=== PATIENT | male | born 1940 | race Caucasian/White ===

== ENCOUNTER → 2023-10-22 11:42 | Outpatient (REF) | payer MEDICARE, OTHER, SELFPAY ==
[2023-10-22 12:36] LABS: Hematocrit 42.6 % (39.0-52.0); Mean Corp Hgb Conc. 32.9 g/dL (33.0-37.0); Mean Corpuscular Hgb 28.6 pg (27.0-31.0); Mean Corpuscular Volume 87.1 fL (80.0-94.0); Mean Platelet Volume 10.6 fL (7.4-10.4); Platelet Count 186 10^3/uL (130-400); Red Blood Cell Count 4.89 10^6/uL (4.70-6.10); Red Cell Dist. Width 15.1 % (11.5-14.5); White Blood Cell Count 42.1 10^3/uL (4.8-10.8)
[2023-10-22 13:31] LABS: LDH 238 U/L (120-246)
[2023-10-22 14:08] LABS: Absolute Neutrophils -Man Diff 0.8 10^3/uL (1.4-6.5); Band Neutrophils 0 % (0-3); Lymphocytes 98 % (20-51); Segmented Neutrophils 2 % (42-75)
[2023-10-22 14:09] LABS: Normal RBC Morphology Yes; Platelets Checked Yes
[2023-10-22 15:44] LABS: Total Cells Counted 100
== END ==
LOC: REG 11:42
PROVIDERS: ATTENDING PHYSICIAN Internal Medicine Hematology & Oncology; FAMILY PHYSICIAN Family Medicine
DX: D72.820 Lymphocytosis (symptomatic) (principal); C91.11 Chronic lymphocytic leukemia of B-cell type in remission
CPT/HCPCS: 36415; 83615; 85025

== ENCOUNTER → 2023-11-06 12:57 | Outpatient (REF) | payer MEDICARE, OTHER, SELFPAY ==
[2023-11-06 13:42] LABS: % Basophils 0.4 % (0-2); % Eosinophils 0.5 % (0-6); % Immature Granulocytes 0.2 % (0-0.5); % Lymphocytes 81.9 % (20.5-51.1); % Monocytes 3.7 % (1.7-9.3); % Neutrophils 13.3 % (42.2-75.2); Absolute Basophils 0.2 10^3/uL (0-0.2); Absolute Eosinophils 0.2 10^3/uL (0-0.7); Absolute Immature Granulocytes 0.1 10^3/uL (0-0.05); Absolute Lymphocytes 34.3 10^3/uL (1.2-3.4); Absolute Monocytes 1.6 10^3/uL (0.1-0.6); Absolute Neutrophils 5.6 10^3/uL (1.4-6.5); Hematocrit 43.8 % (39.0-52.0); Hemoglobin 14.2 g/dL (13.0-18.0); Mean Corp Hgb Conc. 32.4 g/dL (33.0-37.0); Mean Corpuscular Hgb 28.6 pg (27.0-31.0); Mean Corpuscular Volume 88.3 fL (80.0-94.0); Mean Platelet Volume 10.6 fL (7.4-10.4); Nucleated Red Blood Cells % 0 % (-); Platelet Count 164 10^3/uL (130-400); Red Blood Cell Count 4.96 10^6/uL (4.70-6.10); White Blood Cell Count 41.9 10^3/uL (4.8-10.8)
[2023-11-06 14:43] LABS: ALT (SGPT) 19 U/L (0-50); AST (SGOT) 35 U/L (17-59); Albumin 4.4 g/dl (3.5-5.0); Alkaline Phosphatase 54 U/L (38-126); Blood Urea Nitrogen 20 mg/dl (9-20); Calcium 9.4 mg/dl (8.4-10.2); Carbon Dioxide 28 mmol/L (22-30); Chloride 103 mmol/L (98-107); Glucose 90 mg/dl (70-99); HDL Cholesterol 46 mg/dl; LDL Cholesterol, Calculated 60 mg/dl; Potassium 4.6 mmol/L (3.5-5.1); Sodium 136 mmol/L (135-145); Total Bilirubin 0.9 mg/dl (0.2-1.3); Total Cholesterol 127 mg/dl (50-199); Total Protein 6.6 g/dl (6.3-8.2); Triglyceride 108 mg/dl (10-149); Very Low Density Lipoprotein 21 mg/dl (0-30); eGFR > 60.00
== END ==
LOC: REG 12:57
PROVIDERS: ATTENDING PHYSICIAN Internal Medicine Hematology & Oncology; FAMILY PHYSICIAN Family Medicine
DX: D72.820 Lymphocytosis (symptomatic) (principal); C91.11 Chronic lymphocytic leukemia of B-cell type in remission; I42.2 Other hypertrophic cardiomyopathy; I70.0 Atherosclerosis of aorta; I25.10 Atherosclerotic heart disease of native coronary artery without angina pectoris; E78.2 Mixed hyperlipidemia; I10 Essential (primary) hypertension; I48.0 Paroxysmal atrial fibrillation; Z87.891 Personal history of nicotine dependence; Z00.00 Encounter for general adult medical examination without abnormal findings
CPT/HCPCS: 36415; 80053; 80061; 85025

== ENCOUNTER → 2024-02-27 15:48 | Outpatient (REF) | payer MEDICARE, OTHER, SELFPAY ==
[2024-02-27 17:35] LABS: LDH 214 U/L (120-246)
[2024-02-27 17:46] LABS: % Basophils 0.4 % (0-2); % Eosinophils 0.5 % (0-6); % Immature Granulocytes 0.2 % (0-0.5); % Lymphocytes 81.6 % (20.5-51.1); % Monocytes 3.6 % (1.7-9.3); % Neutrophils 13.7 % (42.2-75.2); Absolute Basophils 0.2 10^3/uL (0-0.2); Absolute Eosinophils 0.3 10^3/uL (0-0.7); Absolute Immature Granulocytes 0.1 10^3/uL (0-0.05); Absolute Lymphocytes 37.3 10^3/uL (1.2-3.4); Absolute Monocytes 1.7 10^3/uL (0.1-0.6); Absolute Neutrophils 6.2 10^3/uL (1.4-6.5); Hematocrit 41.5 % (39.0-52.0); Hemoglobin 13.6 g/dL (13.0-18.0); Mean Corp Hgb Conc. 32.8 g/dL (33.0-37.0); Mean Corpuscular Hgb 28.6 pg (27.0-31.0); Mean Corpuscular Volume 87.4 fL (80.0-94.0); Mean Platelet Volume 10.6 fL (7.4-10.4); Nucleated Red Blood Cells % 0 % (-); Platelet Count 180 10^3/uL (130-400); Red Blood Cell Count 4.75 10^6/uL (4.70-6.10); Red Cell Dist. Width 15.5 % (11.5-14.5); White Blood Cell Count 45.7 10^3/uL (4.8-10.8)
== END ==
LOC: REG 15:48
PROVIDERS: ATTENDING PHYSICIAN Internal Medicine Hematology & Oncology; FAMILY PHYSICIAN Family Medicine
DX: D72.820 Lymphocytosis (symptomatic) (principal); C91.11 Chronic lymphocytic leukemia of B-cell type in remission
CPT/HCPCS: 36415; 83615; 85025

== ENCOUNTER → 2024-07-08 13:05 | Outpatient (REF) | payer MEDICARE, OTHER, SELFPAY ==
[2024-07-08 14:40] LABS: LDH 241 U/L (120-246)
[2024-07-08 14:44] LABS: Hematocrit 45.5 % (39.0-52.0); Hemoglobin 14.4 g/dL (13.0-18.0); Mean Corp Hgb Conc. 31.6 g/dL (33.0-37.0); Mean Corpuscular Hgb 28.5 pg (27.0-31.0); Mean Corpuscular Volume 89.9 fL (80.0-94.0); Mean Platelet Volume 9.9 fL (7.4-10.4); Platelet Count 156 10^3/uL (130-400); Red Blood Cell Count 5.06 10^6/uL (4.70-6.10); Red Cell Dist. Width 15.5 % (11.5-14.5)
[2024-07-08 15:32] LABS: % Basophils 0.4 % (0-2); % Eosinophils 0.5 % (0-6); % Immature Granulocytes 0.2 % (0-0.5); % Lymphocytes 84.4 % (20.5-51.1); % Neutrophils 9.5 % (42.2-75.2); Absolute Basophils 0.2 10^3/uL (0-0.2); Absolute Eosinophils 0.3 10^3/uL (0-0.7); Absolute Immature Granulocytes 0.1 10^3/uL (0-0.05); Absolute Lymphocytes 43.9 10^3/uL (1.2-3.4); Absolute Monocytes 2.6 10^3/uL (0.1-0.6); Nucleated Red Blood Cells % 0 % (-)
== END ==
LOC: REG 13:05
PROVIDERS: ATTENDING PHYSICIAN Internal Medicine Hematology & Oncology; FAMILY PHYSICIAN Family Medicine
DX: D72.820 Lymphocytosis (symptomatic) (principal); C91.11 Chronic lymphocytic leukemia of B-cell type in remission
CPT/HCPCS: 36415; 83615; 85025

== ENCOUNTER → 2024-08-15 14:56 | Outpatient (REF) | payer MEDICARE, OTHER, SELFPAY | LOC: RCS 14:56 | PROVIDERS: ATTENDING PHYSICIAN Internal Medicine Cardiovascular Disease; FAMILY PHYSICIAN Family Medicine | DX: I42.2 Other hypertrophic cardiomyopathy (principal); I48.0 Paroxysmal atrial fibrillation; I35.0 Nonrheumatic aortic (valve) stenosis | CPT/HCPCS: 93306 ==

== ENCOUNTER 2024-09-05 20:14 | Inpatient (IN) | payer MEDICARE, OTHER, SELFPAY ==
[2024-09-05] VITALS (57 sets, daily range): BP systolic 57–144; BP diastolic 36–115
--- NOTE | 2024-09-05 16:59 | ED.GENMED ---
ED Provider Triage
<Dasha Hirsch PA-C - Last Filed: 09/05/24 17:01>
-
Patient seen by provider in Triage?: Seen in Triage
Attestation: A medical screening examination has been initiated by a qualified medical provider. Based on the assessment performed at this time, it has been determined that an emergent medical condition may exist and the patient has been informed
that further medical evaluation and possible additional diagnostic testing may be needed.
HPI: 84yoM here with increasing SOB x 1 week. Had a fall today but denies injuries. Also has been having 'the sweats' without fevers. No CP/leg swelling/cough. Hx of CLL.
GENERAL: Alert , in no apparent distress
EYE: No visual abnormalities.
NECK: Trachea midline
ENT: No visible abnormalities.
LUNGS: No acute respiratory distress
NEUROLOGICAL: Alert and oriented
SKIN: Skin intact. No visible changes.
MUSCULOSKELETAL: Moving extremities normally
PSYCH: Normal and appropriate interaction.
This is a medical evaluation conducted in person to initiate diagnostic evaluation and provide initial therapeutics. Please see further documentation by the treating clinician.
Cardiac labs, viral testing, EKG, and CXR ordered.
History of Present Illness
<Dasha Hirsch PA-C - Last Filed: 09/05/24 17:01>
General
Chief Complaint: Breathing Problem
Time Seen by Provider: 09/05/24 17:21
<Damion Abrams DO - Last Filed: 09/05/24 22:43>
General
Source: patient and records
Exam Limitations: clinical condition
Nursing documentation reviewed up to this point in time: agreed with
History of Present Illness
History of Present Illness:
84-year-old male PAF aortic valve disease hypertrophic cardiomyopathy CLL not on treatment presents with fatigue shortness of breath, never required transfusion, onset 7 to 10 days ago, no fevers has a scratch or wound on his right hand after a fall
states he feels short of breath, worse with exertion initial blood pressure is elevated and he was tachycardic in a wide-complex rhythm look like AF, subsequently became unstable with low blood pressures, with confusion attempt at synchronized
cardioversion was unsuccessful
Past History
<Dasha Hirsch PA-C - Last Filed: 09/05/24 17:01>
Past History
ED Past Medical History: CAD, HTN and Hypercholesterolemia
ED Past Surgical History: None
Social History
Tobacco: Non-smoker
Personal:
Living: with family
Family History
Family History: Negative Diabetes, Hypertension, Early CAD, Asthma or Cancer
Phy Exam
<Damion Abrams DO - Last Filed: 09/05/24 22:43>
Physical Exam
Physical Exam:
Physical Exam
General: Ill-appearing male
Neck: Positive JVD
Heart: Rapid rate
Lungs: Crackles
Abdomen: Not tender
Neuro: alert and oriented. no focal neurological deficits
Skin: no rash
Psychiatric: well kept. interactive and cooperative
Extremities: Edema is
Scores
<Damion Abrams DO - Last Filed: 09/05/24 22:43>
Heart Failure Risk
Heart Failure Risk Score: Yes
History of Stroke or TIA: No
History of intubation for respiratory distress: No
Heart rate on ED arrival >/= 110: Yes
SaO2 <90% on arrival on room air: No
HR >/=110 during 3min walk test (or too ill to perform test): Yes
ECG has acute ischemic changes: Yes
Urea >/=12mmol/L (BUN 33.6mg/dL): Yes
Serum CO2>/=35mmol/L: No
Troponin I or T elevated to [place] Level (0.4mg/dL): Yes
NT-proBNP >/=5,000ng/L (5,000pg/ml): Yes
HF Risk Score: 8
Admission Status: VERY HIGH RISK 81.2% Consider admission to hospital
Course
Simonlt;Dasha Hirsch PA-C - Last Filed: 09/05/24 17:01>
Orders/Labs/Results
Orders:
Orders
09/05/24 17:00
Electrocardiogram (*1) Urgent
Reason for Study: Shortness of Breath
EKG- Treatment ONCE
09/05/24 17:21
CXR Port [CR Chest Portable - 1 View] Stat
Comment:
Reason For Exam: sob
Reason Study Needs to be Portable: Unable to Transport
09/05/24 17:25
Type And Crossmatch [Type+Screen] Urgent
COVID-19 Antigen Urgent
Source: Nasal Swab
Complete Blood Count/With Diff Urgent
Comprehensive Metabolic Panel Urgent
Creatine Phosphokinase Urgent
Comment: ADD ON
NT-proBNP Urgent
Troponin I Urgent
Influenza A+B Rapid Molecular Urgent
TIAGO Source: Nasal Swab
Specimen Description:
09/05/24 17:35
Propofol [Diprivan] 20 ml .ROUTE .STK-MED
09/05/24 17:52
ASA Classification Routine
NORepinephrine 4 MG/250 ML [Levophed] 4 mg in 250 ml .ROUTE .STK-MED
Propofol [Diprivan] 50 mg IV NOW STA
09/05/24 17:54
ABO2 Urgent
BBK Wristband Number:
Associate notified that ABO2 has been ordered: [id number]
Date: 09/05/24
Time: 17:44
Urgent Care Physician Assistant ID: [id number]
09/05/24 18:00
NORepinephrine 4 MG/250 ML [Levophed] 4 mg in 250 ml IV PER PROTOCOL
Initial dose in mcg/min, then titrate:: 2
Titrate to keep:: SBP > 90 mmHg
Titrate by mcg/min:: 1-2 mcg/min
Frequency of titrations (minutes):: 5
Maximum dose in ICU in mcg/min:: 30
Maximum dose in IMU in mcg/min:: 8
Maximum dose in IVU in mcg/min:: 4
Begin to taper infusion when:: Remained at goal for 4hrs
Taper by mcg/min:: 1-2 mcg/min
Frequency of taper (minutes) if patient maintains goal:: 30
Taper to off?: Yes
If infusion off & no longer maintaining goal:: Contact Provider
09/05/24 18:08
0.9% Sodium Chloride 1000 ml [Nss] 1,000 ml IV BOLUS
09/05/24 18:26
ABG [Arterial Blood Gas] Urgent
%Oxygen/Room Air: 3
Blood Culture Q30M
TIAGO Source: Blood/Venous
Specimen Description:
Blood Culture Q30M
TIAGO Source: Blood/Venous
Specimen Description:
09/05/24 18:30
Roach Placement- Treatment ONCE
Reason for insertion: Outlet obstruction
Furosemide [Lasix] 60 mg IV NOW STA
Potassium Chloride [KCl] 40 meq PO NOW STA
09/05/24 18:31
Echo 2D MMode Color/Doppler Urgent
Reason for Study: sob
09/05/24 18:32
Add On- LAB Urgent
Tests Added?: CPK
09/05/24 18:35
Lactic Acid Urgent
09/05/24 18:39
Aspirin 325 mg PO NOW STA
09/05/24 18:40
CT Cervical Spine W/o Iv Contr Urgent
Comment:
Reason For Exam: fall
CT Head W/o Iv Contrast Urgent
Comment:
Reason For Exam: headach feall
09/05/24 18:42
Heparin 4,000 units IV NOW STA
09/05/24 18:[address] Non Medication Order As Directed
Physician Order: PTT 6 hours after initial start of Heparin infusion
Above order entered?: Yes
09/05/24 18:45
Heparin 54150 Units/250 ml 25,000 units in 250 ml IV PER PROTOCOL
Weight to be used for heparin protocol in kilograms (kg):: 92.8
Protocol:: Cardiac Tx/Acute Coronary
PTT Goal Range to be used:: PTT 73 to 111 seconds
Order type:: Initial
INITIAL Infusion Dose (UNITS/KG/hr) & then follow protocol:: 12 units/kg/hr
Infusion Dose in UNITS/hr & then follow protocol (UNITS/hr):: 1,000
INFUSION RATE in mL/hr & then follow protocol (mL/hr):: 10
PTT less than or equal to 64 seconds:: Increase rate by 200 units/hr (+ 2 mL/hr)
PTT 64.1 to 72.9 seconds:: Increase rate by 100 units/hr (+ 1 mL/hr)
PTT 73 to 111 seconds:: Target Range. No change in rate.
PTT 111.1 to 130.9 seconds:: Decrease rate by 100 units/hr (- 1 mL/hr)
PTT 131 to 199.9 seconds:: HOLD for 1 hr. Then decrease rate by 200 units/hr (- 2 mL/hr)
PTT greater than or equal to 200 seconds:: HOLD for 2 hrs & Notify Provider. Then decrease by 200 units/hr (-
2 mL/hr)
Lab follow-up:: Each change, PTT q6h until 2 consecutive are therapeutic. Then PTT
daily.
09/05/24 18:57
PTT Urgent
Comment: Obtain baseline before beginning heparin infusion if not already collected
Prothrombin Time Urgent
Comment: ADD ON
Troponin I Stat
09/05/24 18:58
Piperacillin/Tazo 2.25 Gram [Zosyn] 2.25 grams in 50 ml IV NOW
09/05/24 19:02
Add On- LAB Urgent
Tests Added?: CK MB
09/05/24 19:52
Admit/Transfer Patient As Directed
Co-Sign Provider:
Level of Care: Inpatient admission
Assign to:: ICU
Physician / Group: hospitalist
Diagnosis: cardiogenic shock
Reason for Hospitalization: [place] with cardiogenic shock
Expected length of stay greater than two midnights?: Yes
ELOS- Estimated Length of Stay in days: 2
I certify the patient meets the requirements for IP care: Yes
PRN Pain Medication Management As Directed
May give lesser potent ordered pain med per pt: Yes
preference::
Protocol:: Medication orders for pain may be administered in a
manner that supports deferring to patient preference
when the pt is:
- Requesting an ordered lesser potent pain medication.
Least to most potent pain medications are defined
as: acetaminophen < NSAID < tramadol < opioids
(morphine, oxycodone, hydromorphone).
- Requesting a lesser dose of the same medication IF
ORDERED.
- Requesting a less intrusive route of administration
if both routes are prescribed by the provider (PO <
IV).
09/05/24 19:54
Code Status As Directed
Resuscitation Status: Full Code
09/05/24 20:03
Add On- LAB Stat
Tests Added?: CK-MB (from 18:57 lab draw).
09/05/24 20:09
Add On- LAB Urgent
Tests Added?: INR
09/05/24 21:26
Acetaminophen [Tylenol] 650 mg PO Q6HPRN PRN
NORepinephrine 4 MG/250 ML [Levophed] 4 mg in 250 ml IV PER PROTOCOL
Currently infusing. Continue current dose and titrate:: Yes
Titrate to keep:: SBP > 90 mmHg
Titrate by mcg/min:: 1-2 mcg/min
Frequency of titrations (minutes):: 5
Maximum dose in ICU in mcg/min:: 30
Maximum dose in IMU in mcg/min:: 8
Maximum dose in IVU in mcg/min:: 4
Begin to taper infusion when:: Remained at goal for 4hrs
Taper by mcg/min:: 1-2 mcg/min
Frequency of taper (minutes) if patient maintains goal:: 30
Taper to off?: Yes
If infusion off & no longer maintaining goal:: Contact Provider
09/05/24 21:26
Echo 2D MMode Color/Doppler Routine
Reason for Study: heart failure
CARDIOLOGY CONSULT Routine
Consulting Provider: Gaby Still
Was physician already notified: Yes
HF DIETARY CONSULT Routine
HF EDUCATOR CONSULT Routine
Comment:
Tunnel Elastic Operator Chainstitch Consult Routine
Consulting Provider: Arnulfo Sarmiento
Was physician already notified: Yes
Reason for consult: cardiogenic shock
VTE Contraindication Routine
VTE Mechanical Device Contraindication: Medical Contraindication
Pharmocologic Contraindication: Medical Contraindication
MRI Brain [MR Brain Without Contrast] Routine
Comment:
Reason For Exam: eval frontal lobe density, meningioma vs cancer
Recent pill cam endoscopy?: No
Heparin Protocol- PTT Orders As Directed
PTT per Heparin protocol: -Obtain CBC and baseline PTT - if not already collected.
-Obtain PTT 6 hours from start of infusion. Then, every 6 hours until 2 consecutive
PTT's are therapeutic. Then, PTT Daily.
-With each rate change, obtain PTT every 6 hours until 2 consecutive PTT's are
therapeutic. Then, PTT Daily.
Activity As Directed
Activity Level: Bedrest
Intake/ Output As Directed
Frequency: Per unit guidelines
Notify MD As Directed
Notify physician if: PTT is greater than or equal to 200.
Patient Education As Directed
Type: CHF folder
Comment: give on admission. Document in Interdisciplinary Education record
Sleep Apnea Assessment by RN As Directed
Comment:
Physician Instructions:
Vital Signs As Directed
Frequency: Other
Additional Instructions:: Q12 or per unit guidelines if more frequent.
Weight As Directed
Frequency: Daily
Type of Scale: Standing Scale
Comment: Daily morning weight. If unable to stand, use balanced bed scale.
Weight As Directed
Frequency: Once
Type of Scale: Standing Scale
Comment: Upon Admission. If unable to stand, use balanced bed scale.
O2 Therapy [RESP] Routine
Nasal Cannula Liter Flow: 4 LPM
Titrate/Wean O2 to maintain O2 sat greater than (%): 95
Pulse Ox/cont/shift [RESP] Routine
Quantity: 1
Special Instructions: Daily pulse oximetry at rest. If greater than 92% at rest also obtain pulse oximetry
while ambulating as tolerated.
09/05/24 22:00
Doxycycline [Vibramycin] 100 mg PO Q12
09/05/24 22:13
Troponin I Q6H
Comment: at admission & every 6 hours x 2 (3 total), ECG to be done with each level
09/06/24 00:00
Cefepime HCl [Maxipime] 1,000 mg IV Q12H
09/06/24 05:55
Troponin I Q6H
Comment: at admission & every 6 hours x 2 (3 total), ECG to be done with each level
09/06/24 06:00
Basic Metabolic Panel IN AM
Cardiovascular Evaluation IN AM
Magnesium IN AM
Phosphorus IN AM
CR Chest - 2 Views IN AM
Comment:
Reason For Exam: heart failure
09/06/24 08:00
Aspirin Chewable [Low Strength Aspirin] 81 mg PO DAILY
Furosemide [Lasix] 40 mg IV BID AT 0800,1600
09/06/24 11:55
Troponin I Q6H
Comment: at admission & every 6 hours x 2 (3 total), ECG to be done with each level
09/06/24 18:00
Cetirizine HCl [Zyrtec] 5 mg PO QPM
Rosuvastatin Calcium [Crestor] 10 mg PO QPM
09/07/24 06:00
Basic Metabolic Panel IN AM
Complete Blood Count/No Diff Q2D
Comment: notify provider: Platelet count < 130,000 or decrease by 50% from baseline
09/08/24 06:00
Basic Metabolic Panel IN AM
09/09/24 06:00
Complete Blood Count/No Diff Q2D
Comment: notify provider: Platelet count < 130,000 or decrease by 50% from baseline
09/11/24 06:00
Complete Blood Count/No Diff Q2D
Comment: notify provider: Platelet count < 130,000 or decrease by 50% from baseline
09/13/24 06:00
Complete Blood Count/No Diff Q2D
Comment: notify provider: Platelet count < 130,000 or decrease by 50% from baseline
09/15/24 06:00
Complete Blood Count/No Diff Q2D
Comment: notify provider: Platelet count < 130,000 or decrease by 50% from baseline
09/17/24 06:00
Complete Blood Count/No Diff Q2D
Comment: notify provider: Platelet count < 130,000 or decrease by 50% from baseline
09/19/24 06:00
Complete Blood Count/No Diff Q2D
Comment: notify provider: Platelet count < 130,000 or decrease by 50% from baseline
09/21/24 06:00
Complete Blood Count/No Diff Q2D
Comment: notify provider: Platelet count < 130,000 or decrease by 50% from baseline
Abnormal Lab Results
09/05/24 09/05/24 09/05/24
17:25 17:25 18:26
WBC 69.7 H* 10^3/uL
(4.8-10.8)
MCHC 32.9 L g/dL
(33.0-37.0)
RDW 15.3 H %
(11.5-14.5)
MPV 11.0 H fL
(7.4-10.4)
Abs Immat Gran (auto) 0.6 H 10^3/uL
(0-0.05)
Absolute Neuts (auto) 19.2 H 10^3/uL
(1.4-6.5)
Absolute Lymphs (auto) 46.7 H 10^3/uL
(1.2-3.4)
Absolute Monos (auto) 3.1 H 10^3/uL
(0.1-0.6)
Immature Gran % 0.9 H %
(0-0.5)
Neutrophils % 27.6 L %
(42.2-75.2)
Lymphocytes % 67.0 H %
(20.5-51.1)
PT
pCO2 26 L mmHg
(35-48)
HCO3 16.1 L mmol/L
(21-28)
Potassium 3.4 L mmol/L
(3.5-5.1)
Carbon Dioxide 16 L mmol/L
(22-30)
BUN 39 H mg/dl
(9-20)
Creatinine 2.2 H mg/dL
(0.7-1.3)
Lactic Acid
Total Bilirubin 2.0 H mg/dl
(0.2-1.3)
AST 188 H U/L
(17-59)
ALT 51 H U/L
(0-50)
Creatine Kinase 9659 H U/L
(55-170)
CK-MB (CK-2) 20.0 H ng/ml 20.3 H ng/ml
(0.0-3.4) (0.0-3.4)
Troponin I 5.520 H* ng/ml
09/05/24 09/05/24
18:35 18:57
WBC
MCHC
RDW
MPV
Abs Immat Gran (auto)
Absolute Neuts (auto)
Absolute Lymphs (auto)
Absolute Monos (auto)
Immature Gran %
Neutrophils %
Lymphocytes %
PT 16.7 H Sec
(11.4-14.6)
pCO2
HCO3
Potassium
Carbon Dioxide
BUN
Creatinine
Lactic Acid 5.4 H* mmol/L
(0.7-2.0)
Total Bilirubin
AST
ALT
Creatine Kinase
CK-MB (CK-2)
Troponin I 5.480 H* ng/ml
09/05/24 17:25
09/05/24 17:25
Vital Signs
Initial and Last Documented VS:
Initial Vital Signs
Temp Pulse Resp BP Pulse Ox
97.6 F 76 22 84/50 94
09/05/24 16:53 09/05/24 16:53 09/05/24 16:53 09/05/24 16:53 09/05/24 16:53
Last Documented Vital Signs
Temp Pulse Resp BP Pulse Ox
97.6 F 116 31 112/64 96
09/05/24 16:53 09/05/24 20:15 09/05/24 20:15 09/05/24 20:15 09/05/24 20:15
<Damion MuellerMike Abrams, DO - Last Filed: 09/05/24 22:43>
Orders/Labs/Results
Orders:
Orders
09/05/24 17:00
Electrocardiogram (*1) Urgent
Reason for Study: Shortness of Breath
EKG- Treatment ONCE
09/05/24 17:21
CXR Port [CR Chest Portable - 1 View] Stat
Comment:
Reason For Exam: sob
Reason Study Needs to be Portable: Unable to Transport
09/05/24 17:25
Type And Crossmatch [Type+Screen] Urgent
COVID-19 Antigen Urgent
Source: Nasal Swab
Complete Blood Count/With Diff Urgent
Comprehensive Metabolic Panel Urgent
Creatine Phosphokinase Urgent
Comment: ADD ON
NT-proBNP Urgent
Troponin I Urgent
Influenza A+B Rapid Molecular Urgent
TIAGO Source: Nasal Swab
Specimen Description:
09/05/24 17:35
Propofol [Diprivan] 20 ml .ROUTE .STK-MED
09/05/24 17:52
ASA Classification Routine
NORepinephrine 4 MG/250 ML [Levophed] 4 mg in 250 ml .ROUTE .STK-MED
Propofol [Diprivan] 50 mg IV NOW STA
09/05/24 17:54
ABO2 Urgent
BBK Wristband Number:
Associate notified that ABO2 has been ordered: [id number]
Date: 09/05/24
Time: 17:44
Urgent Care Physician Assistant ID: [id number]
09/05/24 18:00
NORepinephrine 4 MG/250 ML [Levophed] 4 mg in 250 ml IV PER PROTOCOL
Initial dose in mcg/min, then titrate:: 2
Titrate to keep:: SBP > 90 mmHg
Titrate by mcg/min:: 1-2 mcg/min
Frequency of titrations (minutes):: 5
Maximum dose in ICU in mcg/min:: 30
Maximum dose in IMU in mcg/min:: 8
Maximum dose in IVU in mcg/min:: 4
Begin to taper infusion when:: Remained at goal for 4hrs
Taper by mcg/min:: 1-2 mcg/min
Frequency of taper (minutes) if patient maintains goal:: 30
Taper to off?: Yes
If infusion off & no longer maintaining goal:: Contact Provider
09/05/24 18:08
0.9% Sodium Chloride 1000 ml [Nss] 1,000 ml IV BOLUS
09/05/24 18:26
ABG [Arterial Blood Gas] Urgent
%Oxygen/Room Air: 3
Blood Culture Q30M
TIAGO Source: Blood/Venous
Specimen Description:
Blood Culture Q30M
TIAGO Source: Blood/Venous
Specimen Description:
09/05/24 18:30
Roach Placement- Treatment ONCE
Reason for insertion: Outlet obstruction
Furosemide [Lasix] 60 mg IV NOW STA
Potassium Chloride [KCl] 40 meq PO NOW STA
09/05/24 18:31
Echo 2D MMode Color/Doppler Urgent
Reason for Study: sob
09/05/24 18:32
Add On- LAB Urgent
Tests Added?: CPK
09/05/24 18:35
Lactic Acid Urgent
09/05/24 18:39
Aspirin 325 mg PO NOW STA
09/05/24 18:40
CT Cervical Spine W/o Iv Contr Urgent
Comment:
Reason For Exam: fall
CT Head W/o Iv Contrast Urgent
Comment:
Reason For Exam: headach feall
09/05/24 18:42
Heparin 4,000 units IV NOW STA
09/05/24 18:[address] Non Medication Order As Directed
Physician Order: PTT 6 hours after initial start of Heparin infusion
Above order entered?: Yes
09/05/24 18:45
Heparin 04958 Units/250 ml 25,000 units in 250 ml IV PER PROTOCOL
Weight to be used for heparin protocol in kilograms (kg):: 92.8
Protocol:: Cardiac Tx/Acute Coronary
PTT Goal Range to be used:: PTT 73 to 111 seconds
Order type:: Initial
INITIAL Infusion Dose (UNITS/KG/hr) & then follow protocol:: 12 units/kg/hr
Infusion Dose in UNITS/hr & then follow protocol (UNITS/hr):: 1,000
INFUSION RATE in mL/hr & then follow protocol (mL/hr):: 10
PTT less than or equal to 64 seconds:: Increase rate by 200 units/hr (+ 2 mL/hr)
PTT 64.1 to 72.9 seconds:: Increase rate by 100 units/hr (+ 1 mL/hr)
PTT 73 to 111 seconds:: Target Range. No change in rate.
PTT 111.1 to 130.9 seconds:: Decrease rate by 100 units/hr (- 1 mL/hr)
PTT 131 to 199.9 seconds:: HOLD for 1 hr. Then decrease rate by 200 units/hr (- 2 mL/hr)
PTT greater than or equal to 200 seconds:: HOLD for 2 hrs & Notify Provider. Then decrease by 200 units/hr (-
2 mL/hr)
Lab follow-up:: Each change, PTT q6h until 2 consecutive are therapeutic. Then PTT
daily.
09/05/24 18:57
PTT Urgent
Comment: Obtain baseline before beginning heparin infusion if not already collected
Prothrombin Time Urgent
Comment: ADD ON
Troponin I Stat
09/05/24 18:58
Piperacillin/Tazo 2.25 Gram [Zosyn] 2.25 grams in 50 ml IV NOW
09/05/24 19:02
Add On- LAB Urgent
Tests Added?: CK MB
09/05/24 19:52
Admit/Transfer Patient As Directed
Co-Sign Provider:
Level of Care: Inpatient admission
Assign to:: ICU
Physician / Group: hospitalist
Diagnosis: cardiogenic shock
Reason for Hospitalization: [place] with cardiogenic shock
Expected length of stay greater than two midnights?: Yes
ELOS- Estimated Length of Stay in days: 2
I certify the patient meets the requirements for IP care: Yes
PRN Pain Medication Management As Directed
May give lesser potent ordered pain med per pt: Yes
preference::
Protocol:: Medication orders for pain may be administered in a
manner that supports deferring to patient preference
when the pt is:
- Requesting an ordered lesser potent pain medication.
Least to most potent pain medications are defined
as: acetaminophen < NSAID < tramadol < opioids
(morphine, oxycodone, hydromorphone).
- Requesting a lesser dose of the same medication IF
ORDERED.
- Requesting a less intrusive route of administration
if both routes are prescribed by the provider (PO <
IV).
09/05/24 19:54
Code Status As Directed
Resuscitation Status: Full Code
09/05/24 20:03
Add On- LAB Stat
Tests Added?: CK-MB (from 18:57 lab draw).
09/05/24 20:09
Add On- LAB Urgent
Tests Added?: INR
09/05/24 21:26
Acetaminophen [Tylenol] 650 mg PO Q6HPRN PRN
NORepinephrine 4 MG/250 ML [Levophed] 4 mg in 250 ml IV PER PROTOCOL
Currently infusing. Continue current dose and titrate:: Yes
Titrate to keep:: SBP > 90 mmHg
Titrate by mcg/min:: 1-2 mcg/min
Frequency of titrations (minutes):: 5
Maximum dose in ICU in mcg/min:: 30
Maximum dose in IMU in mcg/min:: 8
Maximum dose in IVU in mcg/min:: 4
Begin to taper infusion when:: Remained at goal for 4hrs
Taper by mcg/min:: 1-2 mcg/min
Frequency of taper (minutes) if patient maintains goal:: 30
Taper to off?: Yes
If infusion off & no longer maintaining goal:: Contact Provider
09/05/24 21:26
Echo 2D MMode Color/Doppler Routine
Reason for Study: heart failure
CARDIOLOGY CONSULT Routine
Consulting Provider: Gaby Still
Was physician already notified: Yes
HF DIETARY CONSULT Routine
HF EDUCATOR CONSULT Routine
Comment:
Tunnel Elastic Operator Chainstitch Consult Routine
Consulting Provider: Arnulfo Sarmiento
Was physician already notified: Yes
Reason for consult: cardiogenic shock
VTE Contraindication Routine
VTE Mechanical Device Contraindication: Medical Contraindication
Pharmocologic Contraindication: Medical Contraindication
MRI Brain [MR Brain Without Contrast] Routine
Comment:
Reason For Exam: eval frontal lobe density, meningioma vs cancer
Recent pill cam endoscopy?: No
Heparin Protocol- PTT Orders As Directed
PTT per Heparin protocol: -Obtain CBC and baseline PTT - if not already collected.
-Obtain PTT 6 hours from start of infusion. Then, every 6 hours until 2 consecutive
PTT's are therapeutic. Then, PTT Daily.
-With each rate change, obtain PTT every 6 hours until 2 consecutive PTT's are
therapeutic. Then, PTT Daily.
Activity As Directed
Activity Level: Bedrest
Intake/ Output As Directed
Frequency: Per unit guidelines
Notify MD As Directed
Notify physician if: PTT is greater than or equal to 200.
Patient Education As Directed
Type: CHF folder
Comment: give on admission. Document in Interdisciplinary Education record
Sleep Apnea Assessment by RN As Directed
Comment:
Physician Instructions:
Vital Signs As Directed
Frequency: Other
Additional Instructions:: Q12 or per unit guidelines if more frequent.
Weight As Directed
Frequency: Daily
Type of Scale: Standing Scale
Comment: Daily morning weight. If unable to stand, use balanced bed scale.
Weight As Directed
Frequency: Once
Type of Scale: Standing Scale
Comment: Upon Admission. If unable to stand, use balanced bed scale.
O2 Therapy [RESP] Routine
Nasal Cannula Liter Flow: 4 LPM
Titrate/Wean O2 to maintain O2 sat greater than (%): 95
Pulse Ox/cont/shift [RESP] Routine
Quantity: 1
Special Instructions: Daily pulse oximetry at rest. If greater than 92% at rest also obtain pulse oximetry
while ambulating as tolerated.
09/05/24 22:00
Doxycycline [Vibramycin] 100 mg PO Q12
09/05/24 22:13
Troponin I Q6H
Comment: at admission & every 6 hours x 2 (3 total), ECG to be done with each level
09/06/24 00:00
Cefepime HCl [Maxipime] 1,000 mg IV Q12H
09/06/24 05:55
Troponin I Q6H
Comment: at admission & every 6 hours x 2 (3 total), ECG to be done with each level
09/06/24 06:00
Basic Metabolic Panel IN AM
Cardiovascular Evaluation IN AM
Magnesium IN AM
Phosphorus IN AM
CR Chest - 2 Views IN AM
Comment:
Reason For Exam: heart failure
09/06/24 08:00
Aspirin Chewable [Low Strength Aspirin] 81 mg PO DAILY
Furosemide [Lasix] 40 mg IV BID AT 0800,1600
09/06/24 11:55
Troponin I Q6H
Comment: at admission & every 6 hours x 2 (3 total), ECG to be done with each level
09/06/24 18:00
Cetirizine HCl [Zyrtec] 5 mg PO QPM
Rosuvastatin Calcium [Crestor] 10 mg PO QPM
09/07/24 06:00
Basic Metabolic Panel IN AM
Complete Blood Count/No Diff Q2D
Comment: notify provider: Platelet count < 130,000 or decrease by 50% from baseline
09/08/24 06:00
Basic Metabolic Panel IN AM
09/09/24 06:00
Complete Blood Count/No Diff Q2D
Comment: notify provider: Platelet count < 130,000 or decrease by 50% from baseline
09/11/24 06:00
Complete Blood Count/No Diff Q2D
Comment: notify provider: Platelet count < 130,000 or decrease by 50% from baseline
09/13/24 06:00
Complete Blood Count/No Diff Q2D
Comment: notify provider: Platelet count < 130,000 or decrease by 50% from baseline
09/15/24 06:00
Complete Blood Count/No Diff Q2D
Comment: notify provider: Platelet count < 130,000 or decrease by 50% from baseline
09/17/24 06:00
Complete Blood Count/No Diff Q2D
Comment: notify provider: Platelet count < 130,000 or decrease by 50% from baseline
09/19/24 06:00
Complete Blood Count/No Diff Q2D
Comment: notify provider: Platelet count < 130,000 or decrease by 50% from baseline
09/21/24 06:00
Complete Blood Count/No Diff Q2D
Comment: notify provider: Platelet count < 130,000 or decrease by 50% from baseline
Abnormal Lab Results
09/05/24 09/05/24 09/05/24
17:25 17:25 18:26
WBC 69.7 H* 10^3/uL
(4.8-10.8)
MCHC 32.9 L g/dL
(33.0-37.0)
RDW 15.3 H %
(11.5-14.5)
MPV 11.0 H fL
(7.4-10.4)
Abs Immat Gran (auto) 0.6 H 10^3/uL
(0-0.05)
Absolute Neuts (auto) 19.2 H 10^3/uL
(1.4-6.5)
Absolute Lymphs (auto) 46.7 H 10^3/uL
(1.2-3.4)
Absolute Monos (auto) 3.1 H 10^3/uL
(0.1-0.6)
Immature Gran % 0.9 H %
(0-0.5)
Neutrophils % 27.6 L %
(42.2-75.2)
Lymphocytes % 67.0 H %
(20.5-51.1)
PT
pCO2 26 L mmHg
(35-48)
HCO3 16.1 L mmol/L
(21-28)
Potassium 3.4 L mmol/L
(3.5-5.1)
Carbon Dioxide 16 L mmol/L
(22-30)
BUN 39 H mg/dl
(9-20)
Creatinine 2.2 H mg/dL
(0.7-1.3)
Lactic Acid
Total Bilirubin 2.0 H mg/dl
(0.2-1.3)
AST 188 H U/L
(17-59)
ALT 51 H U/L
(0-50)
Creatine Kinase 9659 H U/L
(55-170)
CK-MB (CK-2) 20.0 H ng/ml 20.3 H ng/ml
(0.0-3.4) (0.0-3.4)
Troponin I 5.520 H* ng/ml
09/05/24 09/05/24
18:35 18:57
WBC
MCHC
RDW
MPV
Abs Immat Gran (auto)
Absolute Neuts (auto)
Absolute Lymphs (auto)
Absolute Monos (auto)
Immature Gran %
Neutrophils %
Lymphocytes %
PT 16.7 H Sec
(11.4-14.6)
pCO2
HCO3
Potassium
Carbon Dioxide
BUN
Creatinine
Lactic Acid 5.4 H* mmol/L
(0.7-2.0)
Total Bilirubin
AST
ALT
Creatine Kinase
CK-MB (CK-2)
Troponin I 5.480 H* ng/ml
09/05/24 17:25
09/05/24 17:25
Vital Signs
Initial and Last Documented VS:
Initial Vital Signs
Temp Pulse Resp BP Pulse Ox
97.6 F 76 22 84/50 94
09/05/24 16:53 09/05/24 16:53 09/05/24 16:53 09/05/24 16:53 09/05/24 16:53
Last Documented Vital Signs
Temp Pulse Resp BP Pulse Ox
97.6 F 116 31 112/64 96
09/05/24 16:53 09/05/24 20:15 09/05/24 20:15 09/05/24 20:15 09/05/24 20:15
Procedures
<Damion Abrams, DO - Last Filed: 09/05/24 22:43>
Cardioversion
Indication:: Afib
Performed by:: rafia
Synchronized?: Yes
Energy Used: 200 joules
Number of attempts: 2
Successful?: No
Complications: None
ASA Risk Score: Class II
Any reaction or bad outcome to prior sedation/anesthesia?: No history of a reaction
Sedation level to be attained: moderate
Chart and allergies reviewed: Yes
Patient reassessed prior to sedation: Yes
Time out completed at (validating right patient & procedure): 05:44
History of difficult intubation: No
Airway free of obstruction: Yes
Patient has a gag reflex: Yes
Patient is able to open mouth: Yes
Patient has no dentures: No
Patient has no loose teeth: No
Medication administered by Provider during Moderate Sedation: IV Propofol (mg)
Total dose administered: 50
Time drug administered: 05:45
Start Time: 05:45
Stop Time: 05:55
<Damion Abrams, DO - Last Filed: 09/05/24 22:43>
MDM/Problems Addressed
Differential Diagnosis Includes:
Primary arrhythmia anemia electrolyte abnormality heart failure pneumonia infection
MDM/Problems Addressed:
Shortness of breath
Chronic conditions affecting care: Cardiomyopathy, Arrhythmia and Cancer
Acute Exacerbation and/or Progression of Chronic Illness: Cardiomyopathy, Arrhythmia and Cancer
<Damion Abrams, DO - Last Filed: 09/05/24 22:43>
*Radiology
Radiology exam reviewed: preliminary read by ED provider
*Pulse Oximetry
Patient hypoxic: no
*EKG
Interpreted by ED Provider?: Yes
Interpretation: abnormal
Comparison EKG: no comparison EKG present
Heart Rate: 125
Rate: tachycardiac
Rhythm: a-fib
Ischemia: non-specific ST changes
*Pig Lead Melter Helper Interpretation
Rate: tachycardiac
Interpretation: abnormal
Heart Rate: 125
Rhythm: a-fib
*Critical Care Note
Total Time (30-74mins, 75-104mins- exclusive of procedures): 45
<Damion Abrams DO - Last Filed: 09/05/24 22:43>
Update Note
Update Note:
Update attempt at emergent cardioversion unsuccessful despite 2 synchronized shocks we will start saline, pressor support, labs are pending not exactly sure what I am dealing with now as of yet
Update labs are noted worsening white blood cell count not anemic acute renal insufficiency elevated troponin elevated Trope prior echo noted will start on antibiotics pressors did not push fluids to aggressively message sent to vocational placement specialist
cardiology and hospitalist
ED Attending Note
<Dasha Hirsch PA-C - Last Filed: 09/05/24 17:01>
-
Portions of this chart may have been created with voice recognition software.� Occasional wrong word or��sound alike� substitutions may have occurred due to the inherent limitations of voice recognition software.
Discharge Plan
Departure
Patient Disposition: Admit
Date of Disposition: 09/05/24
Time of Disposition: 19:14
Admit to: ICU
Presentation/result/management discussed w/ accepting MD/DO: Hospitalist
Patient with high blood pressure during this ER visit?: No
Condition: Critical
Discharge Problem:
Cardiogenic shock
Interventions
Interventions:
*Risk Screen - Suicide Last Done: 09/05/24 21:50
*General Assessment Last Done: 09/05/24 16:53
*Neglect/Abuse Screening Last Done: 09/05/24 16:53
ED- Fall Risk Assessment Last Done: 09/05/24 17:47
*ED COVID-19 Vaccine History Last Done: 09/05/24 21:39
*Nursing Disposition Last Done: 09/05/24 21:43
ED- Cardiac Assessment Last Done: 09/05/24 17:47
ED- Pulmonary Assessment Last Done: 09/05/24 17:47
Discharge Date and Time
Discharge Date/Time: 09/05/24 21:44
[2024-09-05] MEDS: LEVOPHED 250 IV (17:57)
[2024-09-05 17:59] LABS: AST (SGOT) 188 U/L (17-59); Albumin 4.5 g/dl (3.5-5.0); Alkaline Phosphatase 75 U/L (38-126); Blood Urea Nitrogen 39 mg/dl (9-20); Calcium 9.1 mg/dl (8.4-10.2); Carbon Dioxide 16 mmol/L (22-30); Chloride 98 mmol/L (98-107); Glucose 93 mg/dl (70-99); Potassium 3.4 mmol/L (3.5-5.1); Sodium 136 mmol/L (135-145); Total Protein 6.6 g/dl (6.3-8.2); eGFR 29.17
[2024-09-05 18:06] LABS: Hematocrit 44.7 % (39.0-52.0); Hemoglobin 14.7 g/dL (13.0-18.0); Mean Corp Hgb Conc. 32.9 g/dL (33.0-37.0); Mean Corpuscular Hgb 28.8 pg (27.0-31.0); Mean Corpuscular Volume 87.6 fL (80.0-94.0); Platelet Count 209 10^3/uL (130-400); Red Cell Dist. Width 15.3 % (11.5-14.5); White Blood Cell Count 69.7 10^3/uL (4.8-10.8)
[2024-09-05] MEDS: NSS 1000 IV (18:09)
[2024-09-05 18:10] LABS: NT-proBNP > 27000 pg/ml
[2024-09-05 18:11] LABS: COVID-19 Antigen Negative (Negative)
[2024-09-05 18:18] LABS: ALT (SGPT) 51 U/L (0-50)
[2024-09-05 18:40] LABS: % Basophils 0.1 % (0-2); % Immature Granulocytes 0.9 % (0-0.5); % Monocytes 4.4 % (1.7-9.3); % Neutrophils 27.6 % (42.2-75.2); Absolute Immature Granulocytes 0.6 10^3/uL (0-0.05); Absolute Lymphocytes 46.7 10^3/uL (1.2-3.4); Absolute Monocytes 3.1 10^3/uL (0.1-0.6); Absolute Neutrophils 19.2 10^3/uL (1.4-6.5); Nucleated Red Blood Cells % 0 % (-)
[2024-09-05 18:59] LABS: Creatine Phosphokinase 9659 U/L (55-170)
[2024-09-05 19:04] LABS: Lactic Acid 5.4 mmol/L (0.7-2.0)
[2024-09-05] MEDS: ASPIRIN 325 MG PO (19:25)
[2024-09-05] MEDS: ZOSYN 50 IV (19:25)
[2024-09-05] MEDS: LASIX 60 MG IV (19:25)
[2024-09-05] MEDS: KCL 40 MEQ PO (19:26)
[2024-09-05 19:29] LABS: APTT 34.9 Sec (23.4-35.0)
--- NOTE | 2024-09-05 19:32 | HPS.HSE ---
Family Physician
-
Family Physician: Bertrand Young
Chief Complaint
-
Shortness of breath
History of Present Illness
This is a 84-year-old with past medical history significant for CLL, hypertrophic cardiomyopathy, moderate to severe aortic stenosis, prior CAD with multiple stents, proximal atrial fibrillation not currently anticoagulated who presents to the
emergency department with shortness of breath.
Patient apparently had episode of severe shortness of breath approximately 1 week ago. He was stated to have struggles with breathing at that time but it resolves a few hours later. Family reported that the patient was seen a few days later and
they thought that he was having some difficulty breathing and did not look well and was asked to come to the hospital but he refused. He apparently was stable for a few more days. Then he developed worsening shortness of breath weakness and a fall.
He denied having chest pain currently. He had no leg swelling. He denies any cough. He reported he had sweats but no fevers or chills.
With his fall patient injured his right hand. Then a felt more short of breath especially with exertion.
On initial arrival in the emergency department he was hypertensive, tachycardic with a wide-complex rhythm in atrial fibrillation.
By time
The patient's blood pressure dropped significantly and he was in shock requiring pressors. Blood pressure was 84/58, pulse was in the low 100s and irregular, he was afebrile with a temp of 97.6. He was satting 97% on supplemental oxygen.
Unsuccessful attempted cardioversion in the ED.
ECG shows atrial fibrillation at rate of 113 with wide complexes consistent with A-fib with aberration. His troponin was elevated at 5, BNP was over 27,000, white count is up to 69 from the low 50s most recent test. Hemoglobin and platelet counts
were normal. Electrolytes were mostly stable with a potassium of 3.4, bicarb of 16, BUN and creatinine were elevated at 39 and 2.2, baseline creatinine was 0.8. He had mild elevation in total bilirubin to 2.0, mild AST elevation to 181 and ALT to
75.
Chest x-ray shows some bilateral infiltrates in the lungs. Bedside echocardiogram showed significant decline in EF with known aortic stenosis and low flow across the valve.
Medical History
Past Medical History
Past Medical History: Reports Arrhythmia (Proximal atrial fibrillation), CAD, Cancer (CLL), CHF (Hypertrophic cardiomyopathy) and Valvular Disease (Moderate to severe aortic stenosis)
Past Surgical History: Reports Other
Social History
Tobacco: Non-smoker
Alcohol: None
Drug: None
Personal:
Living: With Family
Employment: Retired
Family History
Family History: Not pertinent
Allergies / Home Medications
Allergies reflects when Allergies were last updated in [employer].
Home Medications with original date entered in [employer]
Allergy/Medication List:
Crestor 10 MG 1 tablet Orally Once a day for 90 days Active
Metoprolol Tartrate 25 MG 1 tablet with food Orally Twice a Day for 90 days Active
Lisinopril 40 MG 1 tablet Orally Once a day for 90 days Active
Vitamin D3 2000 UNIT 1 capsule Orally Once a day for 30 day(s) Active
Multiple Vitamin - 1 tablet Orally Once a day for 30 day(s) Active
Cetirizine HCl 10 MG 1 tablet Orally Once a day Active
Aspirin 81 MG take 1 tablet (81MG) by oral route every day Oral Nov, Active
Vitamin-B Complex 1 tab by mouth daily Oral Active
dilTIAZem HCl ER Coated Beads 240 MG 1 capsule Orally Once a Day for 90 days
Review of Systems
-
History Source: Patient
Constitutional: Reports No Symptoms
EENT: Reports No Symptoms
Respiratory: Reports Trouble Breathing
Cardiac: Reports No Symptoms
Abdomen/GI: Reports No Symptoms
: Reports No Symptoms
Musculoskeletal: Reports No Symptoms
Skin: Reports No Symptoms
Neurological: Reports No Symptoms
Endocrine: Reports No Symptoms
Hematologic/Lymphatic: Reports No Symptoms
Psych: Reports No Symptoms
Physical Exam
Vital Signs
Vital Signs
Temp Pulse Resp BP Pulse Ox
97.6 F 98 28 84/58 94
09/05/24 16:53 09/05/24 18:15 09/05/24 18:15 09/05/24 18:15 09/05/24 17:32
Physical Exam
General: Well Developed, Well Nourished and Comfortable
HEENT: NormoCephalic, Anicteric, Moist mucous membranes and Atraumatic
Respiratory: Clear
Cardiac: S1/S2, Irregular Rhythm and Tachycardia
Breast: Deferred by me
GI: Soft, Non Tender, Non Distended and Normal Bowel Sounds
Rectal: Deferred by Provider
Genito-urinary: Deferred by me
Musculoskeletal: No Clubbing, No Cyanosis and No Edema
Skin: Warm
Neuro: AO x 3 and No Motor Deficits
Hematologic/Lymphatic: No Lymphadenopathy
Psych: Calm
Laboratory Results
-
09/05/24 17:25
09/05/24 17:25
Laboratory Results
APTT 34.9 Sec (23.4-35.0) 09/05/24 18:57
Lactic Acid 5.4 mmol/L (0.7-2.0) H* 09/05/24 18:35
Total Bilirubin 2.0 mg/dl (0.2-1.3) H 09/05/24 17:25
AST 188 U/L (17-59) H 09/05/24 17:25
ALT 51 U/L (0-50) H 09/05/24 17:25
Alkaline Phosphatase 75 U/L (38-126) 09/05/24 17:25
Troponin I 5.520 ng/ml H* 09/05/24 17:25
Data Reviewed
-
Diagnostic Radiology: Image Personally Visualized and interpreted
CT Scan: Report Reviewed by me
Medical Tests (Nuc Med, Echo, EKG etc): Image Personally Visualized and interpreted
Lab Data: Labs Reviewed by me
Old Records: Reviewed
Impression/Plan
-
IMPRESSION:
84 y.o with suspected cardiogenic shock secondary to HI that likely occured a few days ago. He has elevated troponin, new wide complex tachycardia (AFIB with new LBBB), elevated BNP and moderate pulmonary edema on supplemental oxygen. He is
hypotensive requiring pressors. Failure of attempted cardioversion in setting of hypotension. Seen by interventional card and cardiology in ED. Possible cath tonight if rising troponin.
PLAN:
1. Cardiogenic shock - Cardiogenic shock secondary to HI in patient with HOCM, and atrial fibrillation. EF markedly depressed on bedside echo. Per discussion, if completed HI based on flat or down trending troponin no indication for cath, if
rising troponin will get cath. Initiate medical management. Lactic acid elevated. New renal failure all consistent with cardiogenic shock.
- admit to ICU
- initiate aspirin/plavix/statin
- heparin gtt
- BP support with levophed for now
- initiate diuresis as tolerated 40mg IV if SBP > 100
- holding home bp meds
- consult to copy director
- cardiology consulted.
2. AFIB RVR - Poor rate control currently in setting of acute HI
- tolerate tachycardia to 120s if SBP stable, consider amio if rates further elevated
- heparin gtt for now
3. Pneumonia/CLL - Elevated WBC to 69, baseline around 50. Cannot rule out PNA.
- blood cultures
- urine cultures
- check MRSA swab
- renal dose cefepime/doxy for now
DVT PPX - on heparin gtt
Code status - Full code pending review of living will, likely to change to DNR
[2024-09-05 19:58] LABS: B.E. -6.9 mmol/L; HCO3 16.1 mmol/L (21-28); PCO2 26 mmHg (35-48); PO2 83 mmHg (83-108)
[2024-09-05 20:25] LABS: INR 1.33; PT 16.7 Sec (11.4-14.6)
[2024-09-05] MEDS: HEPARIN 25000 UNITS/250 ML IV (20:27)
[2024-09-05] MEDS: PLAVIX 300 MG PO (20:32)
[2024-09-05 21:02] LABS: CKMB 20.3 ng/ml (0.0-3.4)
--- NOTE | 2024-09-05 22:00 | PTCARENOTE ---
Received pt via transfer form ED. Pt AAOx3, able to AMAYA. Sinus tachy, palpable pulses, no edema. 95% on 3L, lung sounds have scattered rhonchi and expiratory wheeze. Hypoactive bowel sounds in all 4Q. Roach CDI draining minimal amounts of monica
urine. Skin CDI with wound on right hand present on admission. Gtts running see flowsheet. Call garcia and daughter and bedside.
[2024-09-05] MEDS: VIBRAMYCIN 100 MG PO (22:22)
[2024-09-05] MEDS: XOPENEX 1.25 MG INHALANT SOLUTION INH (22:54)
[2024-09-06] VITALS (52 sets, daily range): BP systolic 80–129; BP diastolic 52–92; BMI 24.7
--- NOTE | 2024-09-06 00:28 | PTCARENOTE ---
Pt c/o of difficulty breathing. Neb treatment given, Levo gtt turned off. Call garcia at bedside.
[2024-09-06] MEDS: STERILE WATER FOR INJECTION 10 ML IV ×3 (00:58→23:30)
[2024-09-06] MEDS: MAXIPIME 1000 MG IV ×3 (00:58→23:29)
[2024-09-06] MEDS: DILAUDID 0.25 MG IV ×2 (00:59→21:14)
--- NOTE | 2024-09-06 04:00 | PTCARENOTE ---
All systems reassessed, labs drawn and hygiene performed. Call garcia at bedside.
[2024-09-06 04:20] LABS: Urine Albumin 4+ (Neg - Trace); Urine Bilirubin 1+ (Negative); Urine Color Amber; Urine Glucose 1+ (Negative); Urine Ketone 1+ (Negative); Urine Leukocyte 2+ (Negative); Urine Nitrite Positive (Negative); Urine Occult Blood 4+ (Negative); Urine Urobilinogen 2+ (Neg - 1+)
[2024-09-06 04:21] LABS: Urine Character Very Cloudy (Clear)
[2024-09-06 04:26] LABS: APTT 81.3 Sec (23.4-35.0)
[2024-09-06 04:52] LABS: Blood Urea Nitrogen 50 mg/dl (9-20); Calcium 8.5 mg/dl (8.4-10.2); Carbon Dioxide 21 mmol/L (22-30); Chloride 100 mmol/L (98-107); Estimated Creatinine Clearance 23 ml/min; Glucose 90 mg/dl (70-99); HDL Cholesterol 33 mg/dl; LDH 768 U/L (120-246); LDL Cholesterol, Calculated 8 mg/dl; Magnesium 2.5 mg/dl (1.6-2.3); Phosphorus 5.4 mg/dl (2.5-4.5); Potassium 4.5 mmol/L (3.5-5.1); Sodium 137 mmol/L (135-145); Total Cholesterol 64 mg/dl (50-199); Triglyceride 118 mg/dl (10-149); Uric Acid 9.6 mg/dl (3.5-8.5); Very Low Density Lipoprotein 23 mg/dl (0-30); eGFR 21.84
[2024-09-06 05:08] LABS: Procalcitonin > 200.00 ng/ml (0.0-0.25)
[2024-09-06 05:14] LABS: Lactic Acid 2.8 mmol/L (0.7-2.0)
[2024-09-06 06:10] LABS: Urine Amorphous Seen; Urine Bacteria Many (Negative); Urine Granular Cast >15 /LPF (0); Urine Hyaline Cast >15 /LPF (0-2); Urine Mucus Many; Urine Squamous Cell >30 /LPF (Few); Urine Urothelial Cell >30 /LPF (FEW)
--- NOTE | 2024-09-06 06:18 | CON.INTV ---
Consultation
Consultation Request
Date/Time Consultation Requested: 09/06
Date/Time Consultation Performed: 09/06
Reason for Consultation: Critical care
Medical History
-
History of Present Illness:
History obtained from the chart, also from the patient and reviewing outpatient records. Patient is an 84-year-old male with history of CLL, moderate to severe aortic stenosis, hypertrophic cardiomyopathy, history of coronary disease with stents in
the past, atrial fibrillation with WPW. Patient states about 2 weeks ago he had an episode of chest pain. This lasted a few minutes, denied any arm pain or jaw pain. In retrospect, he thinks he may have been having a heart attack at that time.
He did not seek medical attention. Over the past 2 weeks, he has been intermittently short of breath. He is fallen twice, does not know why he is falling. He denies syncope. He also describes intermittent episodic PND. Denies any cough, fevers,
diarrhea, nausea, abdominal pain. He lives with his who has Alzheimer's disease. He does admit to being more fatigued over the past 2 weeks. He fell onto his right side, denies any obvious head trauma. Denies any headaches. He brought
himself into the emergency room, where upon arrival, afebrile, pulse 76, breathing at 22, blood pressure 80/50, 94%. Patient was noted to have wide-complex tachycardia, atrial fibrillation. Attempt was made to cardiovert which was unsuccessful.
He had hypotension, was given norepinephrine, IV fluids. He was pancultured. He was also given [address] head and cervical spine were obtained. Elevated troponin noted. He was started on heparin drip, admitted to ICU for further
management
Presently he is feeling improved with regards to his breathing. He denies any chest pain, arm pain, jaw pain, nausea
.
PMH: History of CLL being followed by oncology, hypertrophic cardiomyopathy, moderate to severe arctic stenosis valve area 1.2 cm, history of coronary disease with stents many years ago, atrial fibrillation with ablation in the past, not
anticoagulated. History of WPW, GERD. History of prostate cancer status post robotic prostatectomy at [facility]. He also has a history of meningioma status postcraniotomy and resection in 2019 at [facility]. Hypertension, hyperlipidemia. She
denies any history of stroke, blood clots, lung disease
Past Medical History
Past Medical History: None (See above)
Past Surgical History: None (See above)
Social History
Tobacco: Former Smoker (Distant smoker, quit many years ago)
Alcohol: None
Drug: None
Personal:
Living: With Family
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
Family History
Family History: Other (3 children healthy. Family history negative for blood clots, cancer)
Allergies / Home Medications
Allergies
Allergy/AdvReac Type Severity Reaction Status Date / Time
banana [Banana] Allergy diarrhea;itchy Verified 09/05/24 18:55
throat
Penicillins Allergy diarrhea Verified 09/05/24 18:55
shellfish derived Allergy Can't eat Verified 09/05/24 18:55
scallops
but can
eat shrimp
& lobster
seasonal allergies Allergy runny Uncoded 09/05/24 17:02
nose;itchy
eyes
Home Medications
�Medication �Instructions �Recorded �Confirmed �Last Taken �Type
lisinopril 40 mg tablet 40 mg PO DAILY 06/24/09 09/05/24 09/05/24 History
multivitamin with folic acid 400 1 tab PO DAILY 03/16/11 09/05/24 09/05/24 History
mcg tablet (Tab-A-Yan)
cholecalciferol (vitamin D3) 25 2,000 unit PO BID 10/10/11 09/05/24 09/05/24 History
mcg (1,000 unit) tablet
aspirin 81 mg chewable tablet (St 81 mg PO DAILY 02/08/16 09/05/24 09/05/24 History
Isidro lUrich)
rosuvastatin 10 mg tablet 10 mg PO QPM 02/08/16 09/05/24 09/04/24 History
cetirizine 10 mg tablet (Zyrtec) 10 mg PO QPM 09/05/24 09/05/24 09/04/24 History
diltiazem HCl 240 mg 240 mg PO QPM 09/05/24 09/05/24 09/04/24 History
capsule,extended release 24 hr
metoprolol tartrate 25 mg tablet 25 mg PO BID 09/05/24 09/05/24 09/05/24 History
vitamin B complex 1 tab PO DAILY 09/05/24 09/05/24 09/05/24 History
Review of Systems
-
All other systems: Negative unless noted
Vitals / Labs / Diagnostic Testing
Vital Signs
Temp Pulse Resp BP Pulse Ox
98.5 F 105 30 100/65 96
09/06/24 03:30 09/06/24 05:45 09/06/24 05:45 09/06/24 05:45 09/06/24 05:45
Lab Data
09/05/24 17:25
09/06/24 03:58
Laboratory Results
09/05/24 09/05/24 09/06/24
18:26 18:57 03:58
PT 16.7 H
INR 1.33
APTT 34.9 81.3 H
pH 7.40
pCO2 26 L
pO2 83
HCO3 16.1 L
O2 Delivery Level Not Reportable
Microbiology
09/05/24 17:25 Nasal Swab Influenza Types A & B (ISAAK) - Final
Negative for Influenza A & B, NAAT
Negative results must be combined with clinical observations
and patient history.
Nucleic Acid Amplification test (NAAT)performed on the
[employer] platform.
Diagnostic Testing:
Physical Exam
-
HEENT: Normocephalic and Anicteric
Cardiovascular: S1/S2, Irregular Rhythm, Murmur (2/6 systolic murmur, distant heart sounds), Peripheral Edema (tr) and Calf Tenderness (n)
Respiratory: Wheeze (n), Rales (n), Rhonchi (n), Non-Labored Respirations and Other (Decreased breath sounds, no obvious egophony)
GI: Soft, Non Distended and Non Tender
Neurology: Awake, Alert, Oriented and No Motor Deficits (Moves all extremities)
Skin: Other (Mild pallor, cool and clammy, pulses 1+ radial)
General: Comfortable
Assessment
-
84-year-old male with history of coronary disease distant stents, hypertrophic cardiomyopathy with recent echo August 2024 with moderate concentric LVH, now with depressed EF of 30%, hypotension, suspected cardiogenic shock. Cannot rule out
pneumonia. Patient admitted to ICU for further management
Hypotension, suspected cardiogenic shock
Ischemic cardiomyopathy, EF 30%, new
History of HOCM, ECHO 08/15/24 nl EF
History of coronary disease with distant stents
Moderate aortic stenosis, valve area 1.2 cm�
PA pressure 36
Wide-complex tachycardia, atrial fibrillation
New left bundle
Attempted DC cardioversion in ED, unsuccessful
History of PAF not on anticoagulation
Acute renal insufficiency, creatinine 2.8
Baseline normal
Elevated CK, elevated troponin
Elevated lactate
Questionable left-sided infiltrate, pneumonitis
History of multiple falls over the past 2 weeks
Conditions present prior to admission
CLL
Hypertension/hyperlipidemia
History of prostate cancer with robotic prostatectomy at [facility]
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
history of benign meningioma status post-craniotomy, resection 2018
Plan/recommendations
At this time, patient is critically ill but stable
He was on norepinephrine through the night, now off
Heart rate in the 110s, was as high as 130s overnight
Remains on heparin drip, therapeutic
Chest x-ray with questionable left-sided pneumonia although patient does not describe symptoms classic for pneumonia
CLL noted
Moving forward
Continue management primarily per cardiology. Remains on heparin drip
New ischemic cardiomyopathy suspected with new left bundle branch
May require eventual coronary catheterization
Presently without chest pain
Troponin being followed by cardiology
Remains on aspirin
Agree with empiric antibiotics for now
History of CLL, likely chronically immunosuppressed. Cannot rule out left-sided pneumonia
COVID-negative, flu negative
Renal function is concerning
Patient had an event about 10 to 14 days ago, since then, likely has been hypotensive. Patient did not seek medical care.
Continue to follow creatinine. Roach catheter in place. May require nephrology evaluation
Fluid status may be difficult to manage
Hold ROSETTA inhibitor
Reviewed with critical care nursing
Patient currently full code but relayed to me that he would not want CPR or mechanical ventilation but would like to discuss with his children. His has Alzheimer's.
Reviewed with daughter by phone. (Brittni Becker). Brittni is the designated power of divorce attorney. Living will states that he would not want aggressive measures but she would like to confirm this with him with the paperwork. She will be bringing this in
later today. For now she understands he is full code.
All questions answered
TCCT 35 min
[2024-09-06 06:19] LABS: Urine White Cell >100 /HPF (0-5)
[2024-09-06] MEDS: VIBRAMYCIN PO (08:43)
[2024-09-06] MEDS: LOW STRENGTH ASPIRIN PO (08:43)
--- NOTE | 2024-09-06 08:56 | PTCARENOTE ---
Rec'd pt at 0700. Pt AAOx3, follows commands, AMAYA. SOB with any minimal exertion including speaking. States that he has been having trouble swallowing, PO meds held and notified, antibx changed to IV. Lungs dim, faint sct coarseness. Pox 96%
4LNC. +BS, abd soft/nt. Roach with poor output, MD aware, Nephro consult. Heparin gtts infusing at 1000units/hr.
[2024-09-06] MEDS: LASIX 40 MG IV (10:06)
[2024-09-06] MEDS: VIBRAMYCIN 260 MG IV ×2 (10:07→21:13)
[2024-09-06 10:38] LABS: Lactic Acid 2.4 mmol/L (0.7-2.0)
[2024-09-06 10:44] LABS: APTT 72.1 Sec (23.4-35.0)
--- NOTE | 2024-09-06 11:16 | W.PN.CARDCBS ---
Today's Communication / Plan
-
Late presentation [place] with multisystem organ failure
If blood pressure support needed use phenylephrine or Levophed
We will try Toprol-XL 25 twice daily for heart rate control of A-fib
Continue heparin and aspirin. Add Plavix. Watch for bleeding.
Statin when LFTs stabilize.
Lasix as needed given low urine flow/anuric status being seen by nephrology.
Impression / Plan
-
Impression / Plan
-
[employer] Superintendent: Dr. Levine
Impression:
Cardiogenic shock with multisystem organ dysfunction/failure. Decreased urine output.
Subacute myocardial infarction which likely occurred last week, possibly August 27, currently chest pain free
-Initial cardiac troponin 5.52, second troponin 1 hour later 5.48
-CK 9659, CKMB 20.3
Rapid atrial fibrillation, s/p DCCV in ER (unsuccessful)
Acute systolic heart failure (NT proBNP >2700) with cardiogenic shock with ARF (Cr 2.2, baseline 0.8)/ shock liver (AST/ALT 188/51; tbili 2), lactic acid 5.4
New ischemic cardiomyopathy with limited bedside echocardiogram with EF 30-35% with LAD territory wall motion abnormality
New left bundle branch block
Possible pneumonia; COVID-negative
recent falls without syncope
-CT head 09/05/24: Frontal craniotomy defect. Subjacent to the craniotomy, there is a focal area of CSF density compatible with postsurgical encephalomalacia. In the left anterior frontal region, there is extra-axial lobulated high density material,
which likely represents residual meningioma and/or pleural thickening.No evidence of acute intracranial abnormality.
-CT cervical spine 09/05/24: No evidence of acute fracture or dislocation. Moderate to severe bilateral carotid arterial calcification.
Chronic:
-Hypertrophic cardiomyopathy with moderate concentric LVH and prior LVOT obstruction not noted on most recent echocardiogram 08/15/2024
-Hypertension.
-Hyperlipidemia..
-History of paroxysmal atrial fibrillation and PACs.
-Coronary artery disease with prior stenting in 2010, 2011 and 2015
*03/16/2011: 3.5/15 mm Xience V drug-eluting stent to the proximal LAD( 80% prox) and 2.5/12 mm Xience V drug-eluting stent to the proximal OM1(85% prox); No AK; abn. ST
* 10/11/2011: 2.5 x 23 mm Xience stent of mid OM1(80%)- NSTEMI peak CTNI 1.9
*02/08/2016 & 02/09/2016: Orbital atherectomy and Stenting of the proximal through distal RCA with overlapping 3.5 x 16 mm, 3.5 x 38 mm, and 3.0 x 12 mm Promus stents.- [place]
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
-History of prostate cancer status post prostatectomy 2008
-CLL
-Benign meningioma status post craniotomy and resection 2018 at [place]
Plan:
Critically ill complex patient with late presentation of likely anterior wall myocardial infarction. History of hypertrophic cardiomyopathy. Now with multisystem organ failure and decreased urine output/worsening creatinine in the setting of
increased heart rates with atrial fibrillation. Patient currently denies chest discomfort. No complaints currently.
Last night patient seen and examined with interventional cardiology, Dr. Fox Jones. At that time decision made not to proceed with a left heart catheterization as myocardial infarct likely occurred over 1 week ago and patient remains chest
pain-free with relatively flat troponin in ARF. No role for MCS.
-Cardiogenic shock with multisystem organ failure. Reduced ejection fraction. Late presentation of myocardial infarction. Hypertrophic cardiomyopathy. LVOT gradient not noted on most recent echo.
If pressor support needed consider low-dose phenylephrine (could also use Levophed given no recent gradients for hypertrophic cardiomyopathy). Keep MAP greater than 60.
Continue ICU level care
Given late presentation myocardial infarction aspirin and Plavix for now. Watch for bleeding on triple therapy.
Add statin once LFTs stabilize. Most recent lipids at goal on low-dose statin.
-Heart failure with reduced ejection fraction
Given acute kidney injury and near anuric status hold Lasix for now.
I have personally discussed with nephrology
Unable to currently tolerate guideline directed medical therapy because of hypotension however will try low-dose beta-bina
-Rapid atrial fibrillation
Heart rate control is paramount in this circumstance. Patient was not anticoagulated prior to coming in. Prior history of atrial fibrillation noted and has not had significant recurrence/low burden.
Toprol-XL 25 mg twice daily. Follow.
If he does not tolerate beta-bina could consider amiodarone for rate control
Prognosis guarded given multisystem organ failure. Continue to monitor vital signs and telemetry.
Last night Dr. Blanco discussed high risk for deterioration discussed with hospital team as well as patient and family members. At that time CODE STATUS reviewed with patient and his daughter. He is considering his options; currently full code
84-year-old critically ill gentleman presents in cardiogenic shock requiring pressors with new ischemic cardiomyopathy, EF 30-35% with new regional wall motion abnormality in the LAD territory, new left bundle branch block with rapid atrial
fibrillation, acute renal failure, transaminitis with underlying known coronary artery disease and remote stenting, moderate to severe aortic stenosis, hypertrophic cardiomyopathy, and CLL.
40 minutes total critical care time
Progress Note - [employer] Superintendent
Subjective
Date of Service: September 06, 2024
Denies chest pain and palpitations.
Objective
Labs:
09/05/24 17:25
09/06/24 03:58
Labs
Hgb 14.7 g/dL (13.0-18.0) 09/05/24 17:25
Hct 44.7 % (39.0-52.0) 09/05/24 17:25
Plt Count 209 10^3/uL (130-400) 09/05/24 17:25
PT 16.7 Sec (11.4-14.6) H 09/05/24 18:57
INR 1.33 09/05/24 18:57
APTT 72.1 Sec (23.4-35.0) H 09/06/24 10:18
Sodium 137 mmol/L (135-145) 09/06/24 03:58
Potassium 4.5 mmol/L (3.5-5.1) D 09/06/24 03:58
BUN 50 mg/dl (9-20) H 09/06/24 03:58
Creatinine 2.8 mg/dL (0.7-1.3) H 09/06/24 03:58
Glucose 90 mg/dl (70-99) 09/06/24 03:58
Troponins
09/05/24 09/05/24 09/05/24
17:25 18:57 22:13
Troponin I 5.520 H* 5.480 H* 5.730 H*
09/06/24 09/06/24
03:58 10:18
Troponin I 7.540 H* D 6.990 H*
Vital Signs and I&O:
Vital Signs
Temp Pulse Resp BP Pulse Ox
97.8 F 119 29 95/60 97
09/06/24 07:32 09/06/24 11:00 09/06/24 11:00 09/06/24 11:00 09/06/24 11:00
Vital Signs
Temp Pulse Resp BP Pulse Ox
97.8 F 119 29 95/60 97
09/06/24 07:32 09/06/24 11:00 09/06/24 11:00 09/06/24 11:00 09/06/24 11:00
Intake & Output
09/04/24 09/05/24 09/06/24 09/07/24
06:59 06:59 06:59 06:59
Intake Total 210 / 220 311 / 311
Output Total 50 / 50
Balance 160 / 170 311 / 311
Physical Exam
Physical Exam
General: Ill-appearing man
Heart: Distant heart sounds irregularly irregular and tacky
Lungs: Coarse anterior breath sounds
Extremities: No clubbing, cyanosis or edema bilaterally.
Neuro: Grossly nonfocal, awake, alert and oriented x3.
--- NOTE | 2024-09-06 11:40 | W.CON.NEPH ---
Consultation
-
Date/Time Consultation Requested: 09/06/24827
Date/Time Consultation Performed: 09/06/24 1030
Requesting Provider: Sola Montgomery
Performing Provider: Ciera Osborn
Reason for Consultation: MARCE
Medical History
-
Chief Complaint: CP and sob
History of Present Illness:
84-year-old with past medical history significant for CLL diagnosed in 2020 not required any treatment, hypertrophic cardiomyopathy, moderate to severe aortic stenosis, HTN on lisinopril, CCB, BB, prior CAD with multiple stents, proximal atrial
fibrillation not currently anticoagulated who presents to the emergency department with shortness of breath.
He reportedly had CP around 1 week ago but did not seek medical help, progressively he notice sob worsening. 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 He denies fever, cough but has night sweats. Denies any
dizziness, does not check BPs. No active CP. No n/v or diarrhea or constipation. No dysuria or decrease in UOP [employer] OPERATOR pe rpt.
In ER he noted with tachycardic with a wide-complex rhythm in atrial fibrillation, unsuccessful CV in ER. cardiogenic shock, required pressors briefly through night. H eis on 4lit of O2. Since late presentation of CA cards plan no acute
interventions and [place] [address], CK high 9k. Cr high at 2.2 and increased to 2.8 with oligoanuria despite lasix.
Chest x-ray shows some bilateral infiltrates in the lungs. Bedside echocardiogram showed significant decline in EF with known aortic stenosis and low flow across the valve.
Past Medical History
Proximal atrial fibrillation, CAD, Cancer (CLL), CHF (Hypertrophic cardiomyopathy) and Valvular Disease (Moderate to severe aortic stenosis)
Past Surgical History: Other (old craniotomy for meningioma 2018, prostate surg for prostate cancer)
Social History
Tobacco: Non-Smoker
Alcohol: None
Personal:
Living: With Family
Employment: Retired
Family History
no CKD
Family History: Not Pertinent
Allergies / Home Medications
Allergy/AdvReac Type Severity Reaction Status Date / Time
banana [Banana] Allergy diarrhea;itchy Verified 09/05/24 18:55
throat
Penicillins Allergy diarrhea Verified 09/05/24 18:55
shellfish derived Allergy Can't eat Verified 09/05/24 18:55
scallops
but can
eat shrimp
& lobster
seasonal allergies Allergy runny Uncoded 09/05/24 17:02
nose;itchy
eyes
�Medication �Instructions �Recorded �Confirmed �Type
lisinopril 40 mg tablet 40 mg PO DAILY 06/24/09 09/05/24 History
multivitamin with folic acid 400 1 tab PO DAILY 03/16/11 09/05/24 History
mcg tablet (Tab-A-Yan)
cholecalciferol (vitamin D3) 25 2,000 unit PO BID 10/10/11 09/05/24 History
mcg (1,000 unit) tablet
aspirin 81 mg chewable tablet (St 81 mg PO DAILY 02/08/16 09/05/24 History
Isidro Aspirin)
rosuvastatin 10 mg tablet 10 mg PO QPM 02/08/16 09/05/24 History
cetirizine 10 mg tablet (Zyrtec) 10 mg PO QPM 09/05/24 09/05/24 History
diltiazem HCl 240 mg 240 mg PO QPM 09/05/24 09/05/24 History
capsule,extended release 24 hr
metoprolol tartrate 25 mg tablet 25 mg PO BID 09/05/24 09/05/24 History
vitamin B complex 1 tab PO DAILY 09/05/24 09/05/24 History
Review of Systems
-
All complete 12 point ROS have been inquired and found negative other than stated in HPI
Physical Exam
Vital Signs
Vital Signs
Temp Pulse Resp BP Pulse Ox
97.8 F 119 29 95/60 97
09/06/24 07:32 09/06/24 11:00 09/06/24 11:00 09/06/24 11:00 09/06/24 11:00
Lab Results
WBC 69.7 10^3/uL (4.8-10.8) H* 09/05/24 17:25
RBC 5.10 10^6/uL (4.70-6.10) 09/05/24 17:
Hgb 14.7 g/dL (13.0-18.0) 09/05/24 17:
Hct 44.7 % (39.0-52.0) 09/05/24 17:25
Plt Count 209 10^3/uL (130-400) 09/05/24 17:25
Sodium 137 mmol/L (135-145) 09/06/24 03:58
Potassium 4.5 mmol/L (3.5-5.1) D 09/06/24 03:58
Chloride 100 mmol/L (98-107) 09/06/24 03:58
Carbon Dioxide 21 mmol/L (22-30) L 09/06/24 03:58
BUN 50 mg/dl (9-20) H 09/06/24 03:58
Creatinine 2.8 mg/dL (0.7-1.3) H 09/06/24 03:58
eGFR 21.84 09/06/24 03:58
Glucose 90 mg/dl (70-99) 09/06/24 03:58
Calcium 8.5 mg/dl (8.4-10.2) 09/06/24 03:58
Phosphorus 5.4 mg/dl (2.5-4.5) H 09/06/24 03:58
Jik-E-Fsvmfrceylx Pept > 28041 pg/ml 09/05/24 17:25
Albumin 4.5 g/dl (3.5-5.0) 09/05/24 17:25
CXR:
1. Large dense left lower lobe airspace consolidation. Diagnostic possibilities are (1) left lower lobe pneumonia (if there are signs/symptoms of pulmonary infection) or (2) left lower lobe atelectasis.
2. Small left pleural effusion.
CT head:
IMPRESSION:
Frontal craniotomy defect. Subjacent to the craniotomy, there is a focal area of CSF density compatible with postsurgical encephalomalacia. In the left anterior frontal region, there is extra-axial lobulated high density material, which likely
represents residual meningioma and/or pleural thickening.
No evidence of acute intracranial abnormality.
CT c spine:
IMPRESSION: No evidence of acute fracture or dislocation.
See above discussion regarding degenerative changes and calcification posterior to the C5-6 disc space and the C6 vertebral body.
Peripherally calcified right lobe thyroid nodule with maximum dimension of 1.8 cm. As warranted, consider further evaluation with a thyroid ultrasound.
Physical Exam
General: Awake, Alert, Oriented, AOx3, No Distress and Nontoxic
HEENT: EOMI, Anicteric and Other (mild JVD)
Respiratory: Crackels, Normal Excursion and Nonlabored Respirations
Cardiac: S1/S2 and Other (tachy, irregular)
Breast: Deferred by me
Abdomen: Soft, Nontender and Nondistended
Musculoskeletal: No Cyanosis, No Edema and Other (cold extremities)
Skin: No Rash
Neuro: Nonfocal/Grossly Intact
Psych: Mood/afflect pleasant, Insight/judgement good and Appropriate
Data Reviewed
-
Radiology: Report Reviewed by me and Discussed with Patient
Labs: Labs Reviewed by me, Discussed with Physician, Discussed with Nurse and Discussed with Patient
Assessment/Plan
-
IMP:
suspected cardiogenic shock
MARCE
Late presentation CA with RHabdo and high troponin
History of coronary disease with distant stents
Acute HFrEF
Ischemic cardiomyopathy, EF 30%, new
history of HOCM, ECHO 1/10/25 nl EF
Rapid atrial fibrillation-s/p unsuccessful cardioversion attempt in ED
New left bundle
Left side infiltrate, pneumonia vs pneumonitis
UTI
Lactic acidosis
elevated LFTs from shock liver
Hypokalemia - monitor BMP
Moderate aortic stenosis, valve area 1.2 cm�
History of multiple falls over the past 2 weeks in setting of weakness from CA
hx of CLL
Essential HTN
HLD
History of prostate cancer with robotic prostatectomy at [place]
History of benign meningioma status post-craniotomy, resection 2018
Frontal lobe density on CT
Plan:
A/w SOb, acute CHF, late presentation of CA
MARCE-cr increasing with oligoanuria from [place]
highly suspect ischemic ATN, UA possible UTI sample and many granular casts, FEna low and RHabdo
resp status is stable on 4lit O2
cont lasix prn basis however not seem to respond well
cards suggests using phenylephrine instead of levo
BP soft, monitor closely hopefully improve with controlling HR
high risk of requiring SALES MANAGER however I am not sure if cardiac status will tolerate
CRRT likely an option
long discussion with pt today and he will accept SALES MANAGER if needed
dose meds renally
CC time spent 40min
d/w nursing, cards
--- NOTE | 2024-09-06 12:50 | W.PN.HOSP.TC ---
Today's Communication/Plan
-
see outlined plan
Assessment / Plan
Assessment / Plan
Assessment:
Hypotension, suspected cardiogenic shock
- on pressors, wean as able. MAP>65 is goal
Late presentation [place] with elevated CPK and troponin
History of coronary disease with distant stents
- current chest pain free
- limited Echo did show WMA; interventional cards reviewed; no role for cath or mechanical support
- trop peaked 7.50
- medical management
- continue ASA/Plavix
- continue IV heparin - requires intensive monitoring of PTTs
- continue BB with parameters
- continue statin
Acute HFrEF
Ischemic cardiomyopathy, EF 30%, new
history of HOCM, ECHO 08/15/24 nl EF
- s/p IV Lasix in ER
- follow I/Os, weights, lytes
- BNP 70245
- follow Cardiology/Renal recs
Wide-complex tachycardia, atrial fibrillation
New left bundle
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
- s/p unsuccessful cardioversion attempt in ED
- continue BB with parameters
- hold Cardizem with low EF
- continue IV heparin - requires intensive monitoring of PTTs
MARCE from Acute Cardiorenal syndrome in setting of acute CHF, Cardiogenic shock
- follow BMP
- bladder scans
- urine studies
- Nephrology consulted
Left side infiltrate, pneumonia vs pneumonitis
- continue empiric Cefepime, doxy, day 1
- procal >200
- COVID-negative, flu negative
UTI
- on Cefepime, follow cultures
Lactic acidosis
- resolving; trend
elevated LFTs from shock liver
- trend
Hypokalemia - monitor BMP
Moderate aortic stenosis, valve area 1.2 cm�
History of multiple falls over the past 2 weeks in setting of weakness from [place]
- PT/OT when suitable
hx of CLL
- Oncology consulted
Essential HTN
- continue BB
- hold ROSETTA
HLD
- statin
History of prostate cancer with robotic prostatectomy at [place]
History of benign meningioma status post-craniotomy, resection 2018
Frontal lobe density on CT
- MRI pending
DVT ppx: IV heparin
Code: Full, pending family review of records to determine DNR status
Total Critical Care Time 44 minutes. I was immediately available to the patient and staff. I personally examined, reviewed labs, diagnostic images/reports, interpretations, treatment plans, discussed patient care with other providers and family
or caregivers (if patient is unable to make decisions), entered orders as appropriate and documented the medical record.
Anticipated Discharge: > 48 hours
Subjective/Interval History
-
Date of Service: September 06, 2024
feels unwell
no chest pain or SOB
Objective Data
-
Labs:
Laboratory Results
09/06/24 09/06/24 09/06/24
03:58 10:18 17:00
APTT 81.3 H 72.1 H Pending
Sodium 137
Potassium 4.5 D
Chloride 100
Carbon Dioxide 21 L
BUN 50 H
Creatinine 2.8 H
Glucose 90
Calcium 8.5
Vital Signs:
Vital Signs
Temp Pulse Resp BP Pulse Ox
97.2 F 125 35 102/56 95
09/06/24 11:30 09/06/24 12:30 09/06/24 12:30 09/06/24 12:00 09/06/24 12:30
I&O
09/05/24 09/06/24 09/07/24
06:59 06:59 06:59
Intake Total 210 / 220 322 / 322
Output Total 50 / 50
Balance 160 / 170 322 / 322
Physical Exam
-
General: No Apparent Distress
HEENT: Normocephalic and Atraumatic
Respiratory: Decreased Breath Sounds; Negative Wheezes, Rales or Rhonchi
Cardiac: Irregular Rhythm and Murmur (09/11)
GI: Soft, Nontender and Nondistended
Musculoskeletal: Edema, Right Lower Extrem and Edema, Left Lower Extrem
Skin: Other (cool, clammy from shock state)
Neuro: AO x 3
Psych: Calm
Data Reviewed
-
Critical Care Time (in minutes): 44
Labs: Labs Reviewed by me
[2024-09-06] MEDS: LOW STRENGTH ASPIRIN 81 MG PO (12:56)
[2024-09-06] MEDS: PLAVIX 75 MG PO (12:56)
[2024-09-06] MEDS: TOPROL XL 25 MG PO (12:56)
--- NOTE | 2024-09-06 12:56 | CON.ONC ---
Impression
Impression
Cardiogenic shock
ischemic cardiomyopathy
hx of severe
MARCE with oliguria
Leukocytosis
[facility] 0 CLL
Plan
Plan
# CLL
- pt was diagnosed with CLL in 2020 with incidental Lymphocytosis on routine CBC. No indications for tx with active surveillance, mildly rising ALC however 3 years w/ normal hgb and plts.
- WBC higher than baseline however ALC similar to corina with acute neutrophilia in setting of acute illness. denies fevers or infectious symptoms prior to arrival. BCx pending, on empirical abx for now.
- continue to monitor CBC daily.
# Cardiogenic Shock
- suspect acute SD ~ 10 days ago with chest pain now presenting in cardiogenic shock with acute drop in EF and new wall motion abnormalities compared to just 3 weeks ago.
- no plan for catheterization or intervention.
- ASA, plavix, heparin gtt.
- cardiology following.
# MARCE, oliguria
- suspect pre-renal/ATN due to hypo-perfusion.
- pt with limited urine output since admission. Cr 2.8.
- CRRT being considered.
Patient History
History of Present Illness
Sukhi is a 84 yo M with hematological hx of [place] 0 CLL who presented with chest pain ~ 10 days ago followed by progressive weakness, SOB. Work-up on arrival c/w cardiogenic shock with new ischemic cardiomyopathy on echo with drop in EF from 65% on
08/15/24 to 30-45% with new wall motion abnormalities. He received ASA, plavix load, started on heparin. Cardiology felt no role for cath as acute ischemic event likely occurs 10 days prior. He was admitted to ICU, pressors able to be weaned off.
Labs also notable for Marce with Cr up to 2.8, oliguric. Denies fevers, chills, weight loss, productive cough prior to admission. He has occasional night sweats related to his CLL with 2-3 over past month, slightly more than prior reported. No other
constitutional symptoms. CBC shows rise in WBC to 69.7 from 52 in July at our last appt however differential with similar ALC, new elevation in neutrophils. Hgb stable at 14.7 g/dl, plts 209,000.
Patient Medication
�Medication �Instructions �Recorded �Confirmed �Last Taken �Type
lisinopril 40 mg tablet 40 mg PO DAILY 06/24/09 09/05/24 09/05/24 History
multivitamin with folic acid 400 1 tab PO DAILY 03/16/11 09/05/24 09/05/24 History
mcg tablet (Tab-A-Yan)
cholecalciferol (vitamin D3) 25 2,000 unit PO BID 10/10/11 09/05/24 09/05/24 History
mcg (1,000 unit) tablet
aspirin 81 mg chewable tablet (St 81 mg PO DAILY 02/08/16 09/05/24 09/05/24 History
Isidro Ulrich)
rosuvastatin 10 mg tablet 10 mg PO QPM 02/08/16 09/05/24 09/04/24 History
cetirizine 10 mg tablet (Zyrtec) 10 mg PO QPM 09/05/24 09/05/24 09/04/24 History
diltiazem HCl 240 mg 240 mg PO QPM 09/05/24 09/05/24 09/04/24 History
capsule,extended release 24 hr
metoprolol tartrate 25 mg tablet 25 mg PO BID 09/05/24 09/05/24 09/05/24 History
vitamin B complex 1 tab PO DAILY 09/05/24 09/05/24 09/05/24 History
Active Medications
Generic Name Dose Route Start Last Admin
Trade Name Freq PRN Reason Stop Dose Admin
Acetaminophen 650 mg 09/05/24 21:26
Acetaminophen 325 Mg Tablet PO 10/03/24 21:25
Q6HPRN PRN
mild pain/ fever>100.5F
Aspirin 81 mg 09/06/24 08:00 09/06/24 08:43
Aspirin 81 Mg Chewable Tablet PO 10/04/24 07:59 Not Given
DAILY ARTHUR
Cefepime HCl 1,000 mg 09/06/24 00:00 09/06/24 00:58
Cefepime Hcl 1,000 Mg/11.3 Ml Vial IV 1,000 mg
Q12H ARTHUR Administration
Cetirizine HCl 5 mg 09/06/24 18:00
Cetirizine Hcl 10 Mg Tablet PO 10/04/24 17:59
QPM ARTHUR
Clopidogrel Bisulfate 75 mg 09/06/24 12:00
Clopidogrel 75 Mg Tablet PO 10/04/24 11:59
DAILY ARTHUR
Heparin Sodium 25,000 units in 250 mls @ 0 mls/hr 09/05/24 18:45 09/05/24 20:27
Heparin 87186 Units/250 Ml IV 250 mls
PER PROTOCOL ARTHUR Administration
Protocol
Per Protocol
Norepinephrine Bitartrate 4 mg in 250 mls @ 0 mls/hr 09/05/24 21:26
Levophed IV
PER PROTOCOL ARTHUR
Protocol
Per Protocol
Doxycycline Hyclate 100 mg/ 260 mls @ 260 mls/hr 09/06/24 10:00 09/06/24 10:07
Sodium Chloride IV 260 mls
Q12H ARTHUR Administration
Metoprolol Succinate 25 mg 09/06/24 12:00
Metoprolol 25 Mg Extended Release Tablet PO 10/04/24 11:59
BID ARTHUR
Rosuvastatin Calcium 10 mg 09/06/24 18:00
Rosuvastatin (Crestor) 10 Mg Tablet PO 10/04/24 17:59
QPM ARTHUR
Sodium Chloride 0 flush 09/05/24 22:00
Sodium Chloride 0.9% (Flush) Syringe IV 10/03/24 21:59
PER PROTOCOL ARTHUR
Sterile Water 10 ml 09/06/24 00:00 09/06/24 00:58
Sterile Water For Injection 10 Ml Vial IV 10/04/24 00:00 10 ml
Q12H ARTHUR Administration
Review of Systems
-
History Source: Patient
Constitutional: Reports No Appetite, Fatigue and Weakness; Denies Fever or Weight Loss
Respiratory: Reports Trouble Breathing; Denies Cough or Wheezing
Cardiac: Reports Chest Pain
GI: Denies Nausea or Diarrhea
Neuro: Reports Dizzy, Weakness and Lightheadedness
Physical Exam
-
General: Well Developed, Well Nourished and No Apparent Distress
HEENT: Negative Jaundice
Cardiology: Irregular Rate/Rhythm
Pulmonary: Clear
Musculoskeletal: No Edema
Extremities: Negative Edema
Neurology: Non Focal
Hematologic / Lymphatic: No Lymphadenopathy
Labs
Lab Results
WBC 69.7 10^3/uL (4.8-10.8) H* 09/05/24 17:25
RBC 5.10 10^6/uL (4.70-6.10) 09/05/24 17:25
Hgb 14.7 g/dL (13.0-18.0) 09/05/24 17:25
Hct 44.7 % (39.0-52.0) 09/05/24 17:25
MCV 87.6 fL (80.0-94.0) 09/05/24 17:25
MCH 28.8 pg (27.0-31.0) 09/05/24 17:25
MCHC 32.9 g/dL (33.0-37.0) L 09/05/24 17:25
RDW 15.3 % (11.5-14.5) H 09/05/24 17:25
Plt Count 209 10^3/uL (130-400) 09/05/24 17:25
MPV 11.0 fL (7.4-10.4) H 09/05/24 17:25
Abs Immat Gran (auto) 0.6 10^3/uL (0-0.05) H 09/05/24 17:25
Absolute Neuts (auto) 19.2 10^3/uL (1.4-6.5) H 09/05/24 17:25
Absolute Lymphs (auto) 46.7 10^3/uL (1.2-3.4) H 09/05/24 17:25
Absolute Monos (auto) 3.1 10^3/uL (0.1-0.6) H 09/05/24 17:25
Absolute Eos (auto) 0.0 10^3/uL (0-0.7) 09/05/24 17:
Absolute Basos (auto) 0.0 10^3/uL (0-0.2) 09/05/24:25
Immature Gran % 0.9 % (0-0.5) H 09/05/24:
Neutrophils % 27.6 % (42.2-75.2) L 09/05/24:25
Lymphocytes % 67.0 % (20.5-51.1) H 09/05/24:
Monocytes % 4.4 % (1.7-9.3) 09/05/24:25
Eosinophils % 0.0 % (0-6) 09/05/24:
Basophils % 0.1 % (0-2) 09/05/24:25
Creatinine 2.8 mg/dL (0.7-1.3) H 09/06/24 03:58
Vital Signs
Vital Signs
Temp Pulse Resp BP Pulse Ox
97.2 F 125 35 102/56 95
09/06/24 11:30 09/06/24 12:30 09/06/24 12:30 09/06/24 12:00 09/06/24 12:30
--- NOTE | 2024-09-06 13:18 | W.PN.UPDATE ---
Update Note
Progress Note Update
reviewed extensively with patient and daughter at bedside (Lori)
confirmed DNR/DNI status in conjunction with advanced directives
--- NOTE | 2024-09-06 13:24 | PTOTSP ---
Speech Pathology
Clinical Swallow Evaluation
84M with admission for cardiogenic shock. C/o increased difficulty swallowing over the past day.
Impression:
S/s concerning for oropharyngeal dysphagia characterized by globus sensation and odynophagia.
Aspiration risk is increased 2/2 current admission for cardiogenic shock and suspected PNA, endorsement of odynophagia and globus sensation, as well as multiple comorbidities (i.e. CHF).
Recommend:
1. Regular textures (IDDSI 7) opt for soft, thin liquids (IDDSI 0)
2. Meds whole or crushed in puree
3. Swallowing strategies: small bites, single sips, slow rate, alternate bites and sips, opt for soft/moist foods
4. LEAFLET DISTRIBUTOR to follow up re: assess diet level tolerance, consider VSE if difficulties persist
[2024-09-06 13:40] LABS: Urine Sodium 37 mmol/L (30-90)
--- NOTE | 2024-09-06 14:03 | PTCARENOTE ---
Pt seen by speech for swallow eval, diet ordered. Daughter at bedside, pt and daughter spoke with Dr. Angela on current condition and plan of care, pt now DNR status.
[2024-09-06 17:30] LABS: Lactic Acid 1.9 mmol/L (0.7-2.0)
[2024-09-06] MEDS: ZYRTEC 5 MG PO (17:51)
[2024-09-06] MEDS: CRESTOR 10 MG PO (17:52)
[2024-09-06] MEDS: HEPARIN 25000 UNITS/250 ML IV (19:11)
[2024-09-06] MEDS: TOPROL XL PO (19:14)
--- NOTE | 2024-09-06 19:17 | PTCARENOTE ---
Received pt via handoff Pt AAOx3, able to AMAYA. Sinus tachy, palpable pulses, no edema. 95% on 4L, lung sounds are diminished with pt c/o difficulty breathing on exertion. Hypoactive bowel sounds in all 4Q. Roach CDI draining minimal amounts of monica
urine. Skin CDI with wound on right hand present on admission. Gtts running see flowsheet. Call garcia at bedside.
[2024-09-07] VITALS (34 sets, daily range): BP systolic 81–112; BP diastolic 51–86; BMI 24.5
--- NOTE | 2024-09-07 00:08 | PTCARENOTE ---
All systems reassessed. Labs drawn. Call garcia at bedside.
[2024-09-07 00:30] LABS: APTT 57.2 Sec (23.4-35.0)
--- NOTE | 2024-09-07 04:00 | PTCARENOTE ---
All systems reassessed. Labs drawn and hygiene performed. Call garcia at bedside.
[2024-09-07 04:44] LABS: Hematocrit 40.6 % (39.0-52.0); Hemoglobin 13.4 g/dL (13.0-18.0); Mean Corpuscular Hgb 28.6 pg (27.0-31.0); Mean Corpuscular Volume 86.8 fL (80.0-94.0); Platelet Count 182 10^3/uL (130-400); Red Blood Cell Count 4.68 10^6/uL (4.70-6.10); Red Cell Dist. Width 15.4 % (11.5-14.5); White Blood Cell Count 71.6 10^3/uL (4.8-10.8)
[2024-09-07 05:40] LABS: ALT (SGPT) 99 U/L (0-50); AST (SGOT) 245 U/L (17-59); Albumin 3.3 g/dl (3.5-5.0); Alkaline Phosphatase 72 U/L (38-126); Blood Urea Nitrogen 78 mg/dl (9-20); Calcium 7.7 mg/dl (8.4-10.2); Carbon Dioxide 18 mmol/L (22-30); Chloride 102 mmol/L (98-107); Estimated Creatinine Clearance 15 ml/min; Glucose 111 mg/dl (70-99); Potassium 4.7 mmol/L (3.5-5.1); Sodium 136 mmol/L (135-145); Total Bilirubin 1.3 mg/dl (0.2-1.3); Total Protein 5.6 g/dl (6.3-8.2)
[2024-09-07 06:49] LABS: APTT 86.2 Sec (23.4-35.0)
[2024-09-07 06:57] LABS: % Immature Granulocytes 0.4 % (0-0.5); % Lymphocytes 67.5 % (20.5-51.1); % Monocytes 2.4 % (1.7-9.3); % Neutrophils 29.7 % (42.2-75.2); Absolute Immature Granulocytes 0.3 10^3/uL (0-0.05); Absolute Lymphocytes 48.4 10^3/uL (1.2-3.4); Absolute Monocytes 1.8 10^3/uL (0.1-0.6); Absolute Neutrophils 21.1 10^3/uL (1.4-6.5); Nucleated Red Blood Cells % 0 % (-)
--- NOTE | 2024-09-07 07:19 | W.PN.INTV ---
Today's Communication / Plan
Recommendations
Amiodarone started
PICC line has been ordered
Remains on heparin therapy
May require low-dose norepinephrine or phenylephrine to maintain systolic greater than 90
Assessment
-
84-year-old male with history of coronary disease distant stents, hypertrophic cardiomyopathy with recent echo August 2024 with moderate concentric LVH, now with depressed EF of 30%, hypotension, suspected cardiogenic shock. Cannot rule out
pneumonia. Patient admitted to ICU for further management
Hypotension, suspected cardiogenic shock
Ischemic cardiomyopathy, EF 30%, new
History of HOCM, ECHO 08/15/24 nl EF
History of coronary disease with distant stents
Moderate aortic stenosis, valve area 1.2 cm�
PA pressure 36
Wide-complex tachycardia, atrial fibrillation
New left bundle
Attempted DC cardioversion in ED, unsuccessful
History of PAF not on anticoagulation
Acute renal insufficiency, creatinine 2.8
Baseline normal
Elevated CK, elevated troponin
Elevated lactate
Questionable left-sided infiltrate, pneumonitis
History of multiple falls over the past 2 weeks
Conditions present prior to admission
CLL
Hypertension/hyperlipidemia
History of prostate cancer with robotic prostatectomy at [place]
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
history of benign meningioma status post-craniotomy, resection 2018
Plan/recommendations
At this time, patient is critically ill but stable, currently off norepinephrine
Heart rate remains in the 110s to 130s
Patient without symptoms although rhythm is concerning, cardiac process is concerning per discussion with cardiology
Remains on heparin drip
Chest x-ray with questionable left-sided pneumonia although patient does not describe symptoms classic for pneumonia
CLL noted
Moving forward
Continue management primarily per cardiology. Remains on heparin drip
New ischemic cardiomyopathy suspected with new left bundle branch
May require eventual coronary catheterization
Presently without chest pain
Troponin being followed by cardiology
Remains on aspirin
Amiodarone is being considered
May need to add a low-dose for norepinephrine at low-dose, to help maintain systolic pressure greater than 90. Discussed at length with cardiology
Given hypertrophic cardiomyopathy and myocardial infarction, will try to minimize pressors or its initiation
Presently systolic pressure greater than 90 and will follow closely
Continue empiric antibiotics for now
History of CLL, likely chronically immunosuppressed. Cannot rule out left-sided pneumonia
COVID-negative, flu negative
Chest x-ray 2/3
Oxygenation stable, 96% on 4 L
Renal function is concerning
Patient had an event about 10 to 14 days ago, since then, likely has been hypotensive. Patient did not seek medical care.
Continue to follow creatinine. Roach catheter in place.
Fluid status may be difficult to manage
Hold ROSETTA inhibitor
Creatinine now rising to 4.4
Nephrology following.
Reviewed discussion with family and hospitalist service.
Patient is DNR
Reviewed with critical care nursing, respiratory care, cardiology
TCCT 31 min
Subjective Dataa
Subjective Data
Date of Service:
Date of Service: September 07, 2024
Subjective:
Patient remains critically ill, tachycardic in the 120s to 130s. Despite this he is without chest pain, shortness of breath, nausea, lightheadedness, dizziness, abdominal pain. Remains off pressors at this time.
Objective Data
Data Reviewed
Vital Signs / I&O / Oxygen:
Vital Signs
Temp Pulse Resp BP Pulse Ox
98.7 F 126 24 95/60 99
09/07/24 04:51 09/07/24 04:45 09/07/24 04:45 09/07/24 04:00 09/07/24 04:45
Intake and Output
09/06/24 09/07/24 09/08/24
06:59 06:59 06:59
Intake Total 210 / 220 914 / 914
Output Total 50 / 50 45 / 45
Balance 160 / 170 869 / 869
SaO2 99
Nasal Cannula flow liters per 4
minute
Physical Exam
General: Comfortable
HEENT: Normocephalic and Anicteric
Cardiovascular: S1-S2, Irregular Rhythm, Murmur (n) and Cool Extremities
Respiratory: Wheeze (n), Crackles (n), Rhonchi (n) and Non-Labored Respirations
GI: Soft, Non Distended and Tender (Mild right upper quadrant tenderness, no rebound or guarding)
Neurology: Awake, Alert and No Motor Deficits (Able to sit up without assistance)
Skin: Cyanosis (n), Jaundice (n) and Rash (n)
Labs/Micro/Reports
Lab Data
09/07/24 04:16
09/07/24 04:16
Laboratory Results
09/06/24 09/06/24 09/06/24
10:18 17:00 23:36
APTT 72.1 H 52.0 H 57.2 H
09/07/24
06:30
APTT 86.2 H
Microbiology
09/05/24 18:26 Blood/Venous Blood Culture - Preliminary
Positive culture in progress
09/05/24 18:26 Blood/Venous Gram Stain - Preliminary
09/05/24 18:26 Blood/Venous Blood Culture - Preliminary
Positive culture in progress
09/05/24 18:26 Blood/Venous Gram Stain - Preliminary
09/05/24 17:25 Nasal Swab Influenza Types A & B (ISAAK) - Final
Negative for Influenza A & B, NAAT
Negative results must be combined with clinical observations
and patient history.
Nucleic Acid Amplification test (NAAT)performed on the
[employer] platform.
--- NOTE | 2024-09-07 08:16 | PTCARENOTE ---
Rec'd pt at 0700. Pt AAOx3, follows commands, AMAYA. Monitor Afib 120's, SBP 90's. Lungs bibasilar rales, pox 96% 3LNC. +THOMPSON. +BS, poor appetite. Heparin gtts infusing per protocol.
[2024-09-07] MEDS: LOW STRENGTH ASPIRIN 81 MG PO (08:32)
[2024-09-07] MEDS: PLAVIX 75 MG PO (08:32)
--- NOTE | 2024-09-07 08:33 | W.PN.CARDCBS ---
Today's Communication / Plan
-
Rate control of atrial fibrillation. Continue Toprol-XL 25 mg twice daily with hold parameters.
Will start oral amiodarone for rate control 200 mg 3 times daily and continue to monitor LFTs
Continue IV heparin
Continue support blood pressure as needed Levophed or phenylephrine
Conservative management of AZ given multisystem organ failure
Impression / Plan
-
Impression / Plan
-
Tiger Machine Operator: Dr. Levine
Impression/Plan:
-Cardiogenic shock with multisystem organ dysfunction/failure
-Coronary artery disease with prior stenting in 2010, 2011 and 2015
*03/16/2011: 3.5/15 mm Xience V drug-eluting stent to the proximal LAD( 80% prox) and 2.5/12 mm Xience V drug-eluting stent to the proximal OM1(85% prox); No AZ; abn. ST
*10/11/2011: 2.5 x 23 mm Xience stent of mid OM1(80%)- NSTEMI peak CTNI 1.9
*02/08/2016 & 02/09/2016: Orbital atherectomy and Stenting of the proximal through distal RCA with overlapping 3.5 x 16 mm, 3.5 x 38 mm, and 3.0 x 12 mm Promus stents.
-Paroxysmal atrial fibrillation Now persistent
-Acute systolic heart failure (NT proBNP >2700) with cardiogenic shock.
-New ischemic cardiomyopathy with limited bedside echocardiogram with EF 30-35% with LAD territory wall motion abnormality.
-New left bundle branch block.
-Hypotension secondary to cardiogenic shock
-Possible pneumonia; COVID-negative
-Recent falls without syncope
-CT head 09/05/24: Frontal craniotomy defect. Subjacent to the craniotomy, there is a focal area of CSF density compatible with postsurgical encephalomalacia. In the left anterior frontal region, there is extra-axial lobulated high density material,
which likely represents residual meningioma and/or pleural thickening.No evidence of acute intracranial abnormality.
-CT cervical spine 09/05/24: No evidence of acute fracture or dislocation. Moderate to severe bilateral carotid arterial calcification.
-Hypertrophic cardiomyopathy with prior moderate concentric LVH and prior LVOT obstruction not noted on most recent echocardiogram (in the setting of LAD territory infarct) 08/15/2024
-Prior hypertension with now low blood pressure
-Hyperlipidemia
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
-History of prostate cancer status post prostatectomy 2008
-CLL
-Benign meningioma status post craniotomy and resection 2018 at [place]
Plan:
Critically ill complex patient with late presentation of likely anterior wall myocardial infarction. History of hypertrophic cardiomyopathy. Now with multisystem organ failure and decreased urine output/worsening creatinine in the setting of
increased heart rates with atrial fibrillation. Patient currently denies chest discomfort but does have some dyspnea on exertion.
On admission cardiology saw patient with interventional cardiology. At that time decision made not to proceed with a left heart catheterization as myocardial infarct likely occurred over 1 week ago (possibly August 27) and patient remains chest
pain-free with relatively flat troponin in ARF. No role for MCS.
Peak troponin 7.54 (2 08/30)
-Cardiogenic shock with multisystem organ failure. Newly reduced ejection fraction. Late presentation of myocardial infarction. Hypertrophic cardiomyopathy. LVOT gradient not noted on most recent echo.
Given late presentation of myocardial infarction:
Continue supportive care and conservative management of late presentation myocardial infarction
Continue intravenous heparin, aspirin, Plavix. Watch for bleeding on triple therapy.
Continue low-dose statin, LFTs abnormal follow
Continues with decreased urine output followed by nephrology and rising creatinine to 4.4 secondary to hypoperfusion/shock
If pressor support needed consider low-dose phenylephrine (could also use Levophed given no recent gradients for hypertrophic cardiomyopathy). Keep MAP greater than 60.
Continue ICU level care
-Acute heart failure with newly reduced ejection fraction and cardiogenic shock. New left bundle branch block.
Volume overload but oxygenation stable.
Guideline directed medical treatment as able. Intermittently tolerating low-dose beta-bina.
Diuresis per nephrology given renal failure (predominantly anuric/oliguric)
-Rapid persistent atrial fibrillation in the setting of previous paroxysmal atrial fibrillation. Blood pressure continues to be soft. Failed DCCV in ER.
Continue Toprol-XL 25 mg twice daily with hold parameters.
Will start oral amiodarone for rate control 200 mg 3 times daily and continue to monitor LFTs
Continue IV heparin
Heart rate control is paramount in this circumstance. Patient was not anticoagulated prior to coming in. Prior history of atrial fibrillation noted and has not had significant recurrence/low burden.
-Hyperlipidemia
On low-dose statin. Lipids stable. LFTs abnormal. Follow.
-Possible pneumonia
Defer to primary service/mushroom spawn maker
-Renal failure secondary to cardiogenic shock
Volume status and renal failure managed by nephrology.
-CLL
Hematology has been consulted
Prognosis guarded given multisystem organ failure. Continue to monitor vital signs and telemetry.
84-year-old critically ill gentleman presents in cardiogenic shock requiring pressors with new ischemic cardiomyopathy, EF 30-35% with new regional wall motion abnormality in the LAD territory, new left bundle branch block with rapid atrial
fibrillation, acute renal failure, transaminitis with underlying known coronary artery disease and remote stenting, moderate to severe aortic stenosis, hypertrophic cardiomyopathy, and CLL.
39 minutes total critical care time
Progress Note - Tiger Machine Operator
Subjective
Date of Service: September 07, 2024
Patient denies chest pain but has dyspnea with exertion.
Objective
Labs:
09/07/24 04:16
09/07/24 04:16
Labs
Hgb 13.4 g/dL (13.0-18.0) 09/07/24 04:16
Hct 40.6 % (39.0-52.0) 09/07/24 04:16
Plt Count 182 10^3/uL (130-400) 09/07/24 04:16
PT 16.7 Sec (11.4-14.6) H 09/05/24 18:57
INR 1.33 09/05/24 18:57
APTT 86.2 Sec (23.4-35.0) H 09/07/24 06:30
Sodium 136 mmol/L (135-145) 09/07/24 04:16
Potassium 4.7 mmol/L (3.5-5.1) 09/07/24 04:16
BUN 78 mg/dl (9-20) H 09/07/24 04:16
Creatinine 4.4 mg/dL (0.7-1.3) H* 09/07/24 04:16
Glucose 111 mg/dl (70-99) H 09/07/24 04:16
Troponins
09/05/24 09/05/24 09/05/24
17:25 18:57 22:13
Troponin I 5.520 H* 5.480 H* 5.730 H*
09/06/24 09/06/24
03:58 10:18
Troponin I 7.540 H* D 6.990 H*
Vital Signs and I&O:
Vital Signs
Temp Pulse Resp BP Pulse Ox
97.5 F 126 24 95/60 99
09/07/24 07:31 09/07/24 04:45 09/07/24 04:45 09/07/24 04:00 09/07/24 04:45
Vital Signs
Temp Pulse Resp BP Pulse Ox
97.5 F 126 24 95/60 99
09/07/24 07:31 09/07/24 04:45 09/07/24 04:45 09/07/24 04:00 09/07/24 04:45
Intake & Output
09/05/24 09/06/24 09/07/24 09/08/24
06:59 06:59 06:59 06:59
Intake Total 210 / 220 914 / 914
Output Total 50 / 50 45 / 45
Balance 160 / 170 869 / 869
Physical Exam
Physical Exam
General: Well developed, well nourished in NAD.
Heart: Distant heart sounds irregularly irregular
Lungs: Coarse breath sounds with crackles at the bases bilateral
Extremities: No clubbing, cyanosis or edema bilaterally.
Neuro: Grossly nonfocal, awake, alert and oriented x3.
[2024-09-07] MEDS: TOPROL XL PO ×2 (08:35→19:40)
[2024-09-07] MEDS: VIBRAMYCIN 260 MG IV ×2 (09:49→21:20)
--- NOTE | 2024-09-07 10:27 | W.PN.HOSP.TC ---
Today's Communication/Plan
-
possible Lasix per Cards/Renal
evaluating for dialysis (CRRT)
continue empiric IV abx
continue pressors
DNR status
Assessment / Plan
Assessment / Plan
Assessment:
Hypotension, suspected cardiogenic shock
- on pressors, wean as able. MAP>65 is goal
Late presentation VT with elevated CPK related to acute VT (not rhabdo) and troponinemia from acute VT
History of coronary disease with distant stents
- current chest pain free
- limited Echo did show WMA; interventional cards reviewed; no role for cath or mechanical support
- trop peaked 7.50
- medical management
- continue ASA/Plavix
- continue IV heparin - requires intensive monitoring of PTTs
- continue BB with parameters
- continue statin
Acute HFrEF
Ischemic cardiomyopathy, EF 30%, new
history of HOCM, ECHO 08/15/24 nl EF
- s/p IV Lasix in ER; consider further IV Lasix bolus or drip options with rising Cr - defer to cards/renal
- follow I/Os, weights, lytes
- BNP 49553
- follow Cardiology/Renal recs
Wide-complex tachycardia, atrial fibrillation
New left bundle
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
- s/p unsuccessful cardioversion attempt in ED
- continue BB with parameters
- start Amiodarone (follow LFTs)
- hold Cardizem with low EF
- continue IV heparin - requires intensive monitoring of PTTs
pre-renal MARCE from Acute Cardiorenal syndrome in setting of acute CHF, Cardiogenic shock
- follow BMP
- Roach for critical I/Os
- urine studies
- s/p IV Lasix in ER; consider further IV Lasix bolus or drip options with rising Cr - defer to cards/renal
- may need CRRT with central line
- Nephrology following
Left side infiltrate, pneumonia vs pneumonitis
Gram negative bacteremia
- source could be GI or pulmonary. Urine culture negative
- continue empiric Cefepime, doxy, day 2
- procal >200
- repeat blood cultures in AM
- COVID-negative, flu negative
Lactic acidosis
- resolving; trend
elevated LFTs from shock liver
- trend
Hypokalemia - monitor BMP
Moderate aortic stenosis, valve area 1.2 cm�
History of multiple falls over the past 2 weeks in setting of weakness from VT
- PT/OT when suitable
hx of CLL
- Oncology following
Essential HTN
- continue BB with parameters
- hold ROSETTA
HLD
- statin
History of prostate cancer with robotic prostatectomy at [place]
History of benign meningioma status post-craniotomy, resection 2018
Frontal lobe density on CT
- MRI was ordered on admission, but deferred for now given medical acuity
DVT ppx: IV heparin
Code: DNR status per discussion with daughter Lori and patient
Total Critical Care Time 44 minutes. I was immediately available to the patient and staff. I personally examined, reviewed labs, diagnostic images/reports, interpretations, treatment plans, discussed patient care with other providers and family
or caregivers (if patient is unable to make decisions), entered orders as appropriate and documented the medical record.
Anticipated Discharge: > 48 hours
Subjective/Interval History
-
Date of Service: September 07, 2024
reports dyspnea with exertion, to commode is winded
no chest pain
remains oligoanuria
Cr 4.4
gram negative bacteremia recovered
Objective Data
-
Labs:
Laboratory Results
09/06/24 09/07/24 09/07/24
23:36 04:16 06:30
WBC 71.6 H*
Hgb 13.4
Hct 40.6
Plt Count 182
APTT 57.2 H 86.2 H
Sodium 136
Potassium 4.7
Chloride 102
Carbon Dioxide 18 L
BUN 78 H
Creatinine 4.4 H*
Glucose 111 H
Calcium 7.7 L
Total Bilirubin 1.3
AST 245 H
ALT 99 H
Alkaline Phosphatase 72
09/07/24
12:30
WBC
Hgb
Hct
Plt Count
APTT Pending
Sodium
Potassium
Chloride
Carbon Dioxide
BUN
Creatinine
Glucose
Calcium
Total Bilirubin
AST
ALT
Alkaline Phosphatase
Vital Signs:
Vital Signs
Temp Pulse Resp BP Pulse Ox
97.5 F 138 32 90/61 97
09/07/24 07:31 09/07/24 09:45 09/07/24 09:45 09/07/24 09:30 09/07/24 09:30
I&O
09/06/24 09/07/24 09/08/24
06:59 06:59 06:59
Intake Total 210 / 220 914 / 929 305 / 305
Output Total 50 / 50 45 / 45
Balance 160 / 170 869 / 884 305 / 305
Physical Exam
-
General: Respiratory Distress (mild with activity, conversation)
HEENT: Normocephalic and Atraumatic
Respiratory: Crackles
Cardiac: Irregular Rhythm and Murmur
Genito-urinary: No Costovertebral Tender
Musculoskeletal: Edema, Right Lower Extrem and Edema, Left Lower Extrem
Neuro: AO x 3
Psych: Calm
Data Reviewed
-
Critical Care Time (in minutes): 44
Labs: Labs Reviewed by me
--- NOTE | 2024-09-07 10:40 | W.PN.NEPH.PH ---
Today's Communication / Plan
-
lasix trial
Assessment/Plan
-
IMP:
suspected cardiogenic shock
MARCE
Late presentation VT with RHabdo and high troponin
History of coronary disease with distant stents
Acute HFrEF
Ischemic cardiomyopathy, EF 30%, new
history of HOCM, ECHO 08/15/24 nl EF
Rapid atrial fibrillation-s/p unsuccessful cardioversion attempt in ED
New left bundle
Left side infiltrate, pneumonia vs pneumonitis
UTI
Lactic acidosis
elevated LFTs from shock liver
Hypokalemia - monitor BMP
Moderate aortic stenosis, valve area 1.2 cm�
History of multiple falls over the past 2 weeks in setting of weakness from VT
hx of CLL
Essential HTN
HLD
History of prostate cancer with robotic prostatectomy at [place]
History of benign meningioma status post-craniotomy, resection 2018
Frontal lobe density on CT
Plan:
A/w SOb, acute CHF, late presentation of VT
MARCE-cr increasing with oligoanuria from [facility]
highly suspect ischemic ATN, UA possible UTI sample and many granular casts, FEna low and RHabdo
resp status is stable on 4lit O2
will give lasix today
cards suggests using phenylephrine instead of levo
BP marginal, monitor closely hopefully improve with controlling HR
high risk of requiring GROUP ACTIVITIES AIDE in next 24hrs however unlikely cardiac status will tolerate
CRRT likely an option
add po bicarb for met acidosis, L acid better
long discussion with pt, primary and cards
prognosis mostly depends on cardiac outcome
I am not clear if pt understands severity of his illness, he is not refusing to GROUP ACTIVITIES AIDE but he has poor hemodynamics to work with
dose meds renally
CC time spent 40min
-
-
Date of Service: September 07, 2024
CC / HPI / ROS
-
Chief Complaint:
MARCE
History of Present Illness:
cr up at 4.4, anuric
wt no change, remains on 4lit of O2
Amio started for afib , remains tachy
bicarb at 18
Review of Systems:
no cp, sob no change
no n/v
Labs
-
Labs:
WBC 71.6 10^3/uL (4.8-10.8) H* 09/07/24 04:16
RBC 4.68 10^6/uL (4.70-6.10) L 09/07/24 04:16
Hgb 13.4 g/dL (13.0-18.0) 09/07/24 04:16
Hct 40.6 % (39.0-52.0) 09/07/24 04:16
Plt Count 182 10^3/uL (130-400) 09/07/24 04:16
Sodium 136 mmol/L (135-145) 09/07/24 04:16
Potassium 4.7 mmol/L (3.5-5.1) 09/07/24 04:16
Chloride 102 mmol/L (98-107) 09/07/24 04:16
Carbon Dioxide 18 mmol/L (22-30) L 09/07/24 04:16
BUN 78 mg/dl (9-20) H 09/07/24 04:16
Creatinine 4.4 mg/dL (0.7-1.3) H* 09/07/24 04:16
eGFR 12.70 09/07/24 04:16
Glucose 111 mg/dl (70-99) H 09/07/24 04:16
Calcium 7.7 mg/dl (8.4-10.2) L 09/07/24 04:16
Phosphorus 5.4 mg/dl (2.5-4.5) H 09/06/24 03:58
Ydm-D-Llhewicdhvh Pept > 59780 pg/ml 09/05/24 17:25
Albumin 3.3 g/dl (3.5-5.0) L 09/07/24 04:16
Physical Exam
-
Vital Signs:
Vital Signs
Temp Pulse Resp BP Pulse Ox
97.4 F 129 23 105/73 99
09/07/24 11:06 09/07/24 13:15 09/07/24 13:15 09/07/24 13:00 09/07/24 13:15
Cardiovascular:: Irregular rate and rhythm
Respiratory:: Bilateral: Rales (at bases)
Lung Excursion:: Normal
Abdomen:: Nontender and Soft
Extremity Edema:: None: Bilateral:
Tyler Catheter: Yes
[2024-09-07] MEDS: MAXIPIME 1000 MG IV (11:00)
[2024-09-07] MEDS: STERILE WATER FOR INJECTION 10 ML IV (11:01)
[2024-09-07 12:10] LABS: APTT 54.3 Sec (23.4-35.0)
--- NOTE | 2024-09-07 12:16 | W.PN.UPDATE ---
Update Note
Progress Note Update
Given patient has blood pressure still marginal at times I have readded Levophed to keep mean arterial pressure greater than or equal to 65 mmHg to help endorgan perfusion. In addition heart rate remains elevated in atrial fibrillation. I have
started amiodarone intravenously along with oral. Hopefully can convert order to purely oral amiodarone tomorrow once heart rate is better controlled
[2024-09-07] MEDS: HEPARIN 25000 UNITS/250 ML IV (12:21)
[2024-09-07] MEDS: CORDARONE 518 MG IV (13:29)
[2024-09-07 13:33] LABS: INR 1.39; PT 17.3 Sec (11.4-14.6)
--- NOTE | 2024-09-07 13:42 | PTCARENOTE ---
1330-Amio started at 1mg/min, PICC line ordered. Explained medication and reason for PICC line to pt, pt verbalized understanding. SBP remains in 90's, HR 120's.
[2024-09-07] MEDS: LASIX 80 MG IV ×2 (14:08→17:36)
[2024-09-07] MEDS: SODIUM BICARBONATE 650 MG PO ×2 (15:40→21:20)
[2024-09-07] MEDS: PACERONE 200 MG PO ×2 (15:40→21:20)
--- NOTE | 2024-09-07 15:49 | PTCARENOTE ---
PICC line placed at bedside by IV Team, awaiting PCXR confirmation. Daughter at bedside, updated pt and daughter on plan of care.
--- NOTE | 2024-09-07 16:11 | CM ---
road manager reviewed patient's chart and met with patient and patient lives with his spouse in a 2 story home with 1st floor set up with bed and bathroom, patient is independent with adl's and ambulation, no dme, patient did not require oxygen
prior to admission.
PCP: Dr. Young
Pharmacy: [facility] in [place]
Plan; Home when stable, no needs, patient did not require oxygen prior to admission.
--- NOTE | 2024-09-07 16:52 | W.PN.UPDATE ---
Update Note
Progress Note Update
spoke with daughter at bedside in detail about his complex medical situation
she understands dialysis could be difficult with his hemodynamics
will wait labs in am
will dose lasix again this pm
[2024-09-07] MEDS: CRESTOR 10 MG PO (17:37)
[2024-09-07] MEDS: ZYRTEC 5 MG PO (17:37)
[2024-09-07] MEDS: TYLENOL 650 MG PO (17:55)
--- NOTE | 2024-09-07 18:04 | PTCARENOTE ---
ANNA PICC with +placement, IV tubings changed, Amio and Heparin now infusing through separate ports via PICC. RAC peripheral site removed. PRN Tylenol given for headache, family at bedside. PTT drawn and sent. HR 110's with SBP 90-100's. O2 decreased
to 2LNC, pox 98%.
--- NOTE | 2024-09-07 19:33 | PTCARENOTE ---
Received pt via handoff Pt AAOx3, able to AMAYA. Sinus tachy, palpable pulses, no edema. 99% on 2L, lung sounds are diminished with pt c/o difficulty breathing on exertion. Hypoactive bowel sounds in all 4Q. Roach CDI draining minimal amounts of monica
urine. Skin CDI with wound on right hand present on admission. Gtts running see flowsheet. Call garcia at bedside.
[2024-09-08] VITALS (48 sets, daily range): BP systolic 83–115; BP diastolic 45–77; BMI 24.3
--- NOTE | 2024-09-08 | PTCARENOTE ---
All systems reassessed. PTT drawn. Call garcia at bedside.
[2024-09-08] MEDS: STERILE WATER FOR INJECTION 10 ML IV (00:33)
[2024-09-08] MEDS: MAXIPIME 1000 MG IV (00:33)
[2024-09-08] MEDS: HEPARIN 25000 UNITS/250 ML IV ×2 (00:54→14:40)
[2024-09-08 01:21] LABS: APTT > 200 Sec (23.4-35.0)
[2024-09-08 02:30] LABS: Hematocrit 38.7 % (39.0-52.0); Hemoglobin 12.8 g/dL (13.0-18.0); Mean Corp Hgb Conc. 33.1 g/dL (33.0-37.0); Mean Corpuscular Hgb 28.3 pg (27.0-31.0); Mean Corpuscular Volume 85.6 fL (80.0-94.0); Mean Platelet Volume 11.1 fL (7.4-10.4); Platelet Count 225 10^3/uL (130-400); Red Blood Cell Count 4.52 10^6/uL (4.70-6.10); Red Cell Dist. Width 15.7 % (11.5-14.5); White Blood Cell Count 74.9 10^3/uL (4.8-10.8)
[2024-09-08 02:33] LABS: APTT 62.9 Sec (23.4-35.0)
[2024-09-08 03:32] LABS: ALT (SGPT) 119 U/L (0-50); AST (SGOT) 184 U/L (17-59); Albumin 3.2 g/dl (3.5-5.0); Alkaline Phosphatase 73 U/L (38-126); Blood Urea Nitrogen 102 mg/dl (9-20); Calcium 7.5 mg/dl (8.4-10.2); Carbon Dioxide 15 mmol/L (22-30); Chloride 101 mmol/L (98-107); Estimated Creatinine Clearance 12 ml/min; Glucose 100 mg/dl (70-99); Sodium 135 mmol/L (135-145); Total Protein 5.8 g/dl (6.3-8.2); eGFR 10.16
--- NOTE | 2024-09-08 04:00 | PTCARENOTE ---
All systems reassessed. Labs drawn and hygiene performed. Call garcia at bedside.
[2024-09-08 04:07] LABS: % Immature Granulocytes 0.7 % (0-0.5); % Lymphocytes 68.5 % (20.5-51.1); % Neutrophils 28.8 % (42.2-75.2); Absolute Immature Granulocytes 0.5 10^3/uL (0-0.05); Absolute Lymphocytes 51.3 10^3/uL (1.2-3.4); Absolute Monocytes 1.5 10^3/uL (0.1-0.6); Absolute Neutrophils 21.6 10^3/uL (1.4-6.5); Nucleated Red Blood Cells % 0 % (-)
[2024-09-08] MEDS: PLAVIX 75 MG PO (07:41)
[2024-09-08] MEDS: SODIUM BICARBONATE 650 MG PO ×3 (07:41→20:41)
[2024-09-08] MEDS: LOW STRENGTH ASPIRIN 81 MG PO (07:41)
[2024-09-08] MEDS: TOPROL XL 25 MG PO ×2 (07:41→20:41)
[2024-09-08] MEDS: PACERONE 200 MG PO ×3 (07:41→20:41)
--- NOTE | 2024-09-08 08:00 | PTCARENOTE ---
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 patient is AAOx3. He is on 2L nasal cannula, resting comfortably, denies pain. Patient is in a sinus rhythm with a wide complex. Amio gtt infusing into right double lumen PICC at 16.7ml. Patient is also on
heparin gtt at 2000unit/hr. Patient is ordered cholesterol lowering diet. had bm prior to change of shift. nayeli without urimeter for accurate I&O. Will review orders, call garcia within reach and patient able to make needs known.
--- NOTE | 2024-09-08 08:03 | W.PN.NEPH.PH ---
Today's Communication / Plan
-
Hd discussion with patient
observe for today
no acute indication for HD at this time but likely within 24 hrs
Will likely have to pursue CRRT if dialysis initiated given unstable hemodynamic
Assessment/Plan
-
IMP:
suspected cardiogenic shock
MARCE
Late presentation DC with RHabdo and high troponin
History of coronary disease with distant stents
Acute HFrEF
Ischemic cardiomyopathy, EF 30%, new
history of HOCM, ECHO 08/15/24 nl EF
Rapid atrial fibrillation-s/p unsuccessful cardioversion attempt in ED
New left bundle
Left side infiltrate, pneumonia vs pneumonitis
UTI
Lactic acidosis
elevated LFTs from shock liver
Hypokalemia - monitor BMP
Moderate aortic stenosis, valve area 1.2 cm�
History of multiple falls over the past 2 weeks in setting of weakness from DC
hx of CLL
Essential HTN
HLD
History of prostate cancer with robotic prostatectomy at [place]
History of benign meningioma status post-craniotomy, resection 2018
Frontal lobe density on CT
Plan:
A/w SOb, acute CHF, late presentation of DC
MARCE-cr increasing with oligoanuria from tyler , creatinine now up to 5.3 metabolic acidosis worsening, has tyler
Remains hemodynamically unstable but off pressors, remains on amiodarone gtt
highly suspect ischemic ATN, UA possible UTI sample and many granular casts, FEna low and RHabdo
resp status is stable on 2lit O2
BP marginal, monitor closely hopefully improve with controlling HR , patient in sinus this am
high risk of requiring GASOLINE DRAGLINE OPERATOR in next 24hrs however unlikely cardiac status will tolerate
CRRT likely an option
maintain po bicarb for met acidosis, L acid better
patient said he would do HD if he had too
prognosis mostly depends on cardiac outcome
I am not clear if pt understands severity of his illness, he is not refusing to GASOLINE DRAGLINE OPERATOR but he has poor hemodynamics to work with
If dialysis is to be pursued he will need dialysis line and I will have to initiate CRRT as bp is mariginal at best
dose meds renally
Patient critically ill with worsening renal failure and hemodynamic instability in the setting of cardiogenic shock
CC time spent 40min
-
-
Date of Service: September 08, 2024
CC / HPI / ROS
-
Chief Complaint:
MARCE
History of Present Illness:
cr up at 5.3, unsure of true urine output despite Tyler given recorded output
On 2 L of oxygen
Amio started for afib , remains in sinus
bicarb at 15
Review of Systems:
no cp, sob no change
no n/v
Oliguric via Tyler
Weights unchanged
Labs
-
Labs:
WBC 74.9 10^3/uL (4.8-10.8) H* 09/08/24 02:12
RBC 4.52 10^6/uL (4.70-6.10) L 09/08/24 02:12
Hgb 12.8 g/dL (13.0-18.0) L 09/08/24 02:12
Hct 38.7 % (39.0-52.0) L 09/08/24 02:12
Plt Count 225 10^3/uL (130-400) D 09/08/24 02:12
Sodium 135 mmol/L (135-145) 09/08/24 02:12
Potassium 5.0 mmol/L (3.5-5.1) 09/08/24 02:12
Chloride 101 mmol/L (98-107) 09/08/24 02:12
Carbon Dioxide 15 mmol/L (22-30) L 09/08/24 02:12
BUN 102 mg/dl (9-20) H* 09/08/24 02:12
Creatinine 5.3 mg/dL (0.7-1.3) H* 09/08/24 02:12
eGFR 10.16 09/08/24 02:12
Glucose 100 mg/dl (70-99) H 09/08/24 02:12
Calcium 7.5 mg/dl (8.4-10.2) L 09/08/24 02:12
Phosphorus 5.4 mg/dl (2.5-4.5) H 09/06/24 03:58
Xff-U-Mylxpbipdfh Pept > 26920 pg/ml 09/05/24 17:25
Albumin 3.2 g/dl (3.5-5.0) L 09/08/24 02:12
Physical Exam
-
Vital Signs:
Vital Signs
Temp Pulse Resp BP Pulse Ox
98.1 F 85 29 106/58 97
09/08/24 02:55 09/08/24 07:41 09/08/24 05:45 09/08/24 07:41 09/08/24 05:30
Cardiovascular:: Regular rate and rhythm
Respiratory:: Bilateral: Coarse
Lung Excursion:: Normal
Abdomen:: Nontender
Bowel Sounds:: Normal
Extremity Edema:: +1: Bilateral:
Tyler Catheter: Yes
[2024-09-08] MEDS: VIBRAMYCIN 260 MG IV (10:02)
[2024-09-08 10:30] LABS: APTT 113.3 Sec (23.4-35.0)
--- NOTE | 2024-09-08 11:51 | W.PN.ONC2 ---
Today's Communication / Plan
-
- further rise in WBC reactive for acute illness, infection. hgb, plts stable.
- cardiology, nephrology following
Impression
Impression
Cardiogenic shock
ischemic cardiomyopathy
hx of severe
MARCE with oliguria
Leukocytosis
[place] 0 CLL
Plan
Plan
# CLL
- pt was diagnosed with CLL in 2020 with incidental Lymphocytosis on routine CBC. No indications for tx with active surveillance, mildly rising ALC however 3 years w/ normal hgb and plts.
- WBC higher than baseline however ALC similar to july with acute neutrophilia in setting of acute illness. denies fevers or infectious symptoms prior to arrival however BCx + for H influenzae. repeat pending. on cefepime, doxy.
- continue to monitor CBC daily.
# Cardiogenic Shock
- suspect acute DE ~ 10 days ago with chest pain now presenting in cardiogenic shock with acute drop in EF and new wall motion abnormalities compared to just 3 weeks ago.
- no plan for catheterization or intervention.
- ASA, plavix, heparin gtt.
- cardiology following.
# MARCE, oliguria
- suspect pre-renal/ATN due to hypo-perfusion.
- pt with limited urine output since admission. Cr 2.8 with continue rise now up to 5.3. Urine outpt today however improved compared to last 48 hours.
- No urgent indications for dialysis however nephrology considered if no improvement in out, Cr over next 24 hours, likely CRRT being considered due to hemodynamics.
- apprec nephrology input
Subjective/Objective
Chief Complaint
cardiogenic shock, MARCE, CLL
Subjective
pt with no new complaints today. Urine output slightly improved however Cr continues to uptrend. Denies AMS, SOB, CP, LE swelling.
Vital Signs:
Vital Signs
Temp Pulse Resp BP Pulse Ox
97.2 F 82 26 107/56 96
09/08/24 07:45 09/08/24 11:30 09/08/24 11:30 09/08/24 11:30 09/08/24 11:30
Lab Results:
Laboratory Data
WBC 74.9 10^3/uL (4.8-10.8) H* 09/08/24 02:12
Hgb 12.8 g/dL (13.0-18.0) L 09/08/24 02:12
Plt Count 225 10^3/uL (130-400) D 09/08/24 02:12
PT Cancelled 09/07/24 13:14
INR Cancelled 09/07/24 13:14
APTT 113.3 Sec (23.4-35.0) H 09/08/24 09:39
eGFR 10.16 09/08/24 02:12
Physical Exam
HEENT: No Jaundice
Cardiology: Irregular rate/rhythm (improved rate in 80-90 bpm)
Pulmonary: Clear; No Wheezes
GI: Soft; No Distended
Extremities: No Edema
Neuro: Non Focal
Review of Systems
Review of Systems
Constitutional: Denies Fever
Respiratory: Denies Dyspnea or Cough
Cardiovascular: Denies Chest Pain
--- NOTE | 2024-09-08 12:15 | W.PN.CARDCBS ---
Today's Communication / Plan
-
Wean norepinephrine as possible
Continue aspirin, Plavix, heparin for now
Eventual addition of DOAC and would stop aspirin or Plavix
If hemodialysis is required, consider cardiac catheterization
Recheck echo on Sunday for assessment of aortic valve and EF.
Would obtain follow-up echo study on September 10 for better assessment of aortic valve and to reassess EF. Although patient may have had out of hospital myocardial infarction, it is also possible that atrial fibrillation was the precipitating event
rather than a true non-STEMI
Impression / Plan
-
Impression / Plan
-
Shuttleless Loom Weaver: Dr. Levine
Impression/Plan:
-Cardiogenic shock with multisystem organ dysfunction/failure
-Coronary artery disease with prior stenting in 2010, 2011 and 2015
*03/16/2011: 3.5/15 mm Xience V drug-eluting stent to the proximal LAD( 80% prox) and 2.5/12 mm Xience V drug-eluting stent to the proximal OM1(85% prox); No AZ; abn. ST
*10/11/2011: 2.5 x 23 mm Xience stent of mid OM1(80%)- NSTEMI peak CTNI 1.9
*02/08/2016 & 02/09/2016: Orbital atherectomy and Stenting of the proximal through distal RCA with overlapping 3.5 x 16 mm, 3.5 x 38 mm, and 3.0 x 12 mm Promus stents.
-Paroxysmal atrial fibrillation Now persistent
-Acute systolic heart failure (NT proBNP >2700) with cardiogenic shock.
-New ischemic cardiomyopathy with limited bedside echocardiogram with EF 30-35% with LAD territory wall motion abnormality.
-New left bundle branch block.
-Hypotension secondary to cardiogenic shock
-Possible pneumonia; COVID-negative
-Recent falls without syncope
-CT head 09/05/24: Frontal craniotomy defect. Subjacent to the craniotomy, there is a focal area of CSF density compatible with postsurgical encephalomalacia. In the left anterior frontal region, there is extra-axial lobulated high density material,
which likely represents residual meningioma and/or pleural thickening.No evidence of acute intracranial abnormality.
-CT cervical spine 09/05/24: No evidence of acute fracture or dislocation. Moderate to severe bilateral carotid arterial calcification.
-Hypertrophic cardiomyopathy with prior moderate concentric LVH and prior LVOT obstruction not noted on most recent echocardiogram (in the setting of LAD territory infarct) 08/15/2024
-Prior hypertension with now low blood pressure
-Hyperlipidemia
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
-History of prostate cancer status post prostatectomy 2008
-CLL
-Benign meningioma status post craniotomy and resection 2018 at [place]
Plan:
Despite his initial presentation he now looks relatively comfortable.
He is in sinus rhythm, and there is no evidence of heart failure on exam.
Continue oral amiodarone. We can stop IV amiodarone at this time. LFTs still elevated, will continue to trend.
Since it is unclear whether hemodialysis access will be required, continue heparin for now. When procedures are not required, would transition to DOAC. He is now on aspirin and clopidogrel as well, and I would stop aspirin or clopidogrel once DOAC
is started.
Major issue now is MARCE on CKD. It is unclear whether or not he will be able to avoid hemodialysis.
While it is possible that precipitating event was an [id number]-[id number] myocardial infarction, it is also possible that the primary event was atrial fibrillation with rapid ventricular response resulting in a nonmyocardial infarction myocardial injury
with wall motion abnormality. Will repeat echo on Sunday for better assessment of aortic stenosis and also reassessment of ejection fraction.
If hemodialysis is required, we could at that point consider cardiac catheterization.
Also, if patient recovers sufficiently, this event should probably trigger an assessment for TAVR evaluation to determine if this is required.
84-year-old critically ill gentleman presents in cardiogenic shock requiring pressors with new ischemic cardiomyopathy, EF 30-35% with new regional wall motion abnormality in the LAD territory, new left bundle branch block with rapid atrial
fibrillation, acute renal failure, transaminitis with underlying known coronary artery disease and remote stenting, moderate to severe aortic stenosis, hypertrophic cardiomyopathy, and CLL.
Progress Note - Shuttleless Loom Weaver
Subjective
Date of Service: September 08, 2024:
84-year-old man presenting with troponin of 7.54 and history of moderate to severe aortic stenosis and hypertrophic cardiomyopathy with evidence of drop in EF to 30-35% with LAD territory wall motion malady, MARCE on CKD, and lactic acidosis. Was in
atrial fibrillation with rapid ventricular response at the time of presentation, now in sinus rhythm on IV and oral amiodarone.
PMH: Hypertrophic cardiomyopathy, most recent echo without LVOT gradient August 2024, hypertension, hyperlipidemia, history of PAF, CAD with PCI 2010, 2011, 2015, prostate cancer with prostatectomy 2008, CLL, resection of meningioma 2017
Current meds: IV heparin, Zyrtec, aspirin 81 mg today, rosuvastatin 10 mg a day, metoprolol ER 25 twice daily, clopidogrel 75 mg a day, amiodarone 200 mg 3 times daily, norepinephrine, bicarb
107/56, pulse 82, respiratory 26, afebrile, weight is 83.6 kg, down 0.6 kg, no distress, lungs are relatively clear, regular rate and rhythm without obvious murmurs JVD okay abdomen benign extremities without clubbing cyanosis or edema
hemoglobin 12.8, white count 74.9, platelets 225, BUN/creatinine 102 and 5.3, creatinine was 2.2 on admission 4.4 yesterday, peak troponin was 7.5
Echo 09/05/2024: EF 30-35%, mild mitral regurgitation, peak and mean aortic valve gradients are 35 and 16 mmHg
Objective
Labs:
09/08/24 02:12
09/08/24 02:12
Labs
Hgb 12.8 g/dL (13.0-18.0) L 09/08/24 02:12
Hct 38.7 % (39.0-52.0) L 09/08/24 02:12
Plt Count 225 10^3/uL (130-400) D 09/08/24 02:12
PT Cancelled 09/07/24 13:14
INR Cancelled 09/07/24 13:14
APTT 113.3 Sec (23.4-35.0) H 09/08/24 09:39
Sodium 135 mmol/L (135-145) 09/08/24 02:12
Potassium 5.0 mmol/L (3.5-5.1) 09/08/24 02:12
BUN 102 mg/dl (9-20) H* 09/08/24 02:12
Creatinine 5.3 mg/dL (0.7-1.3) H* 09/08/24 02:12
Glucose 100 mg/dl (70-99) H 09/08/24 02:12
Troponins
09/05/24 09/05/24 09/05/24
17:25 18:57 22:13
Troponin I 5.520 H* 5.480 H* 5.730 H*
09/06/24 09/06/24
03:58 10:18
Troponin I 7.540 H* D 6.990 H*
Vital Signs and I&O:
Vital Signs
Temp Pulse Resp BP Pulse Ox
36.2 C 82 26 107/56 96
09/08/24 07:45 09/08/24 11:30 09/08/24 11:30 09/08/24 11:30 09/08/24 11:30
Vital Signs
Temp Pulse Resp BP Pulse Ox
36.2 C 82 26 107/56 96
09/08/24 07:45 09/08/24 11:30 09/08/24 11:30 09/08/24 11:30 09/08/24 11:30
Intake & Output
09/06/24 09/07/24 09/08/24 09/09/24
07:59 07:59 07:59 07:59
Intake Total 220 / 230 919 / 934 1545.8 / 1582.5 405.8 / 405.8
Output Total 50 / 50 45 / 45 600 / 600 250 / 250
Balance 170 / 180 874 / 889 945.8 / 982.5 155.8 / 155.8
Physical Exam
Physical Exam
See above
--- NOTE | 2024-09-08 12:39 | PTCARENOTE ---
amio gtt off, may consider CRRT or HD tomorrow per nephrology. abx changed
[2024-09-08] MEDS: AMOXIL 1000 MG PO ×2 (12:52→20:40)
--- NOTE | 2024-09-08 12:56 | PTCARENOTE ---
Patient had complaint of pain at PICC insertion site. notified IVT to assess.
--- NOTE | 2024-09-08 13:02 | W.PN.HOSP.TC ---
Today's Communication/Plan
-
treat bacteremia
wean pressors
continue oral amiodarone
follow labs tomorrow for possible CRRT
Assessment / Plan
Assessment / Plan
Assessment:
Hypotension, suspected cardiogenic shock
- off pressors currently
Late presentation UT with elevated CPK related to acute UT (not rhabdo) and troponinemia from acute UT
History of coronary disease with distant stents
- current chest pain free
- limited Echo did show WMA; interventional cards reviewed; no role for cath or mechanical support
- trop peaked 7.50
- medical management
- continue ASA/Plavix
- continue IV heparin - requires intensive monitoring of PTTs. Eventual transition to OAC
- continue BB with parameters
- continue statin
Acute HFrEF
Ischemic cardiomyopathy, EF 30%, new
history of HOCM, ECHO 08/15/24 nl EF
- s/p IV Lasix per Nephrology/Cardiology
- follow I/Os, weights, lytes
- BNP 64427
- follow Cardiology/Renal recs
Wide-complex tachycardia, atrial fibrillation
New left bundle
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
- s/p unsuccessful cardioversion attempt in ED
- continue BB with parameters
- continue Amiodarone (follow LFTs); now in NSR
- hold Cardizem with low EF
- continue IV heparin - requires intensive monitoring of PTTs. Eventual transition to OAC
pre-renal MARCE from Acute Cardiorenal syndrome in setting of acute CHF, Cardiogenic shock
- follow BMP
- Roach for critical I/Os
- s/p IV Lasix per Nephrology/Cardiology
- continue oral bicarbonate
- may need CRRT with central line; likely in 24 hours
- Nephrology following
Left side infiltrate, pneumonia vs pneumonitis
Haemophilus influenzae bacteremia
- COVID-negative, flu negative
- Likely pulmonary source. Urine culture negative
- continue Amoxil 1g BID
- procal >200
- repeat blood cultures pending
- ID Consulted
Lactic acidosis
- resolving; trend
elevated LFTs from shock liver
- trend
Hypokalemia - monitor BMP
Moderate aortic stenosis, valve area 1.2 cm�
History of multiple falls over the past 2 weeks in setting of weakness from UT
- PT/OT when suitable
hx of CLL
- Oncology following
Essential HTN
- continue BB with parameters
- hold ROSETTA
HLD
- statin
History of prostate cancer with robotic prostatectomy at [place]
History of benign meningioma status post-craniotomy, resection 2018
Frontal lobe density on CT
- follow up MRI was ordered on admission, but deferred for now given medical acuity (ordered cancelled)
DVT ppx: IV heparin
Code: DNR status per discussion with daughter Lori and patient
Total Critical Care Time 41 minutes. I was immediately available to the patient and staff. I personally examined, reviewed labs, diagnostic images/reports, interpretations, treatment plans, discussed patient care with other providers and family
or caregivers (if patient is unable to make decisions), entered orders as appropriate and documented the medical record.
Anticipated Discharge: > 48 hours
Subjective/Interval History
-
Date of Service: September 08, 2024
remains SOB, no change
no CP
oliguria in Roach
weights stable despite IV Lasix
CRRT being discussed
Objective Data
-
Labs:
Laboratory Results
09/08/24 09/08/24 09/08/24
00:45 02:12 09:39
WBC 74.9 H*
Hgb 12.8 L
Hct 38.7 L
Plt Count 225 D
APTT > 200 H* 62.9 H 113.3 H
Sodium 135
Potassium 5.0
Chloride 101
Carbon Dioxide 15 L
BUN 102 H*
Creatinine 5.3 H*
Glucose 100 H
Calcium 7.5 L
Total Bilirubin 1.0
AST 184 H
ALT 119 H
Alkaline Phosphatase 73
09/08/24
17:00
WBC
Hgb
Hct
Plt Count
APTT Pending
Sodium
Potassium
Chloride
Carbon Dioxide
BUN
Creatinine
Glucose
Calcium
Total Bilirubin
AST
ALT
Alkaline Phosphatase
Vital Signs:
Vital Signs
Temp Pulse Resp BP Pulse Ox
97.2 F 74 15 103/62 98
09/08/24 07:45 09/08/24 12:30 09/08/24 12:30 09/08/24 12:30 09/08/24 12:30
I&O
09/07/24 09/08/24 09/09/24
06:59 06:59 06:59
Intake Total 914 / 929 1074.1 / 1560.8 1151.5 / 1151.5
Output Total 45 / 45 600 / 600 250 / 250
Balance 869 / 884 474.1 / 960.8 901.5 / 901.5
Physical Exam
-
General: No Apparent Distress
HEENT: Normocephalic and Atraumatic
Respiratory: Decreased Breath Sounds
Cardiac: Regular Rhythm and S1/S2
GI: Soft and Nontender
Musculoskeletal: Edema, Right Lower Extrem and Edema, Left Lower Extrem
Neuro: AO x 3
Hematologic / Lymphatic: No Lymphadenopathy
Psych: Calm
Data Reviewed
-
Critical Care Time (in minutes): 41
Labs: Labs Reviewed by me
[2024-09-08] MEDS: LASIX 40 MG IV (14:53)
--- NOTE | 2024-09-08 15:07 | W.PN.INTV ---
Today's Communication / Plan
Recommendations
Continue cardiac management
Follow renal function
Amoxicillin to treat pneumonia/bacteremia
Vasopressors as needed
Maintain ICU level of care until decision regarding dialysis is made
Assessment
-
84-year-old male with history of coronary disease distant stents, hypertrophic cardiomyopathy with recent echo August 2024 with moderate concentric LVH, now with depressed EF of 30%, hypotension, suspected cardiogenic shock. Cannot rule out
pneumonia. Patient admitted to ICU for further management
Hypotension, suspected cardiogenic shock
Ischemic cardiomyopathy, EF 30%, new
History of HOCM, ECHO 08/15/24 nl EF
History of coronary disease with distant stents
Moderate aortic stenosis, valve area 1.2 cm�
PA pressure 36
Wide-complex tachycardia, atrial fibrillation
New left bundle
Attempted DC cardioversion in ED, unsuccessful
History of PAF not on anticoagulation
Acute renal insufficiency, creatinine 2.8
Baseline normal
Elevated CK, elevated troponin
Elevated lactate
Questionable left-sided infiltrate, pneumonitis
History of multiple falls over the past 2 weeks
Conditions present prior to admission
CLL
Hypertension/hyperlipidemia
History of prostate cancer with robotic prostatectomy at [place] [place]
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
history of benign meningioma status post-craniotomy, resection 2018
Plan/recommendations
Overall clinically improved-still prognosis is guarded.
Fortunately, renal function has not recovered. Ongoing metabolic acidosis due to renal failure.
-
Continue management primarily per cardiology.
Remains on heparin drip, follow PTT
New ischemic cardiomyopathy suspected with new left bundle branch
May require eventual coronary catheterization prior to discharge. This is an ongoing discussion
Presently without chest pain
Continue antiplatelets per
Oral amiodarone will continue.
Echocardiogram to be repeated
-
Currently off vasopressors. Will use norepinephrine as needed to maintain systolic blood pressure greater than 90.
Given hypertrophic cardiomyopathy and myocardial infarction, will try to minimize pressors or its initiation
Chest x-ray with questionable left-sided pneumonia although patient does not describe symptoms classic for pneumonia
CLL noted
Blood culture positive with haemophilus influenza
Transition to amoxicillin 09/08/2024.
History of CLL, likely chronically immunosuppressed. Cannot rule out left-sided pneumonia
COVID-negative, flu negative
Chest x-ray 09/08
Oxygenation stable, 96% on 4 L wean as able
Worsening renal failure/metabolic acidosis.
Patient had an event about 10 to 14 days ago, since then, likely has been hypotensive. Patient did not seek medical care.
Continue to follow creatinine. Roach catheter in place.
Fluid status may be difficult to manage
Hold ROSETTA inhibitor
Nephrology following. Renal replacement therapy may be needed
Reviewed discussion with family and hospitalist service.
Patient is DNR
Reviewed with critical care nursing, respiratory care, cardiology
-
Maintain ICU level of care until decision regarding dialysis is made.
Subjective Dataa
Subjective Data
Date of Service:
Date of Service: September 08, 2024
Chief Complaint: Batch Unloader Follow Up (Cardiogenic shock)
Subjective:
Patient denies any complaints this morning
Denies chest pain or shortness of breath at rest
Denies increased phlegm production.
Denies hemoptysis
Review of Systems
Cardiopulmonary: Dyspnea (None at rest) and Dyspnea on Exertion
GI: Abdominal Pain (n) and Nausea (n)
Objective Data
Data Reviewed
Vital Signs / I&O / Oxygen:
Vital Signs
Temp Pulse Resp BP Pulse Ox
97.2 F 74 24 110/64 99
09/08/24 07:45 09/08/24 14:00 09/08/24 14:00 09/08/24 14:00 09/08/24 14:00
Intake and Output
09/07/24 09/08/24 09/09/24
06:59 06:59 06:59
Intake Total 914 / 929 1074.1 / 1560.8 1189.5 / 1189.5
Output Total 45 / 45 600 / 600 300 / 300
Balance 869 / 884 474.1 / 960.8 889.5 / 889.5
SaO2 99
Nasal Cannula flow liters per 2
minute
Physical Exam
General: Comfortable
HEENT: Normocephalic and Anicteric
Cardiovascular: S1-S2, Irregular Rhythm, Murmur (n) and Cool Extremities
Respiratory: Wheeze (n), Crackles (n), Rhonchi (n) and Non-Labored Respirations
GI: Soft, Non Distended and Tender (Mild right upper quadrant tenderness, no rebound or guarding)
Neurology: Awake, Alert and No Motor Deficits (Able to sit up without assistance)
Skin: Cyanosis (n), Jaundice (n) and Rash (n)
Labs/Micro/Reports
Lab Data
09/08/24 02:12
09/08/24 02:12
Laboratory Results
09/07/24 09/08/24 09/08/24
18:00 00:45 02:12
APTT 72.0 H > 200 H* 62.9 H
09/08/24
09:39
APTT 113.3 H
Microbiology
09/05/24 18:26 Blood/Venous Blood Culture - Preliminary
Haemophilus influenzae
09/05/24 18:26 Blood/Venous Gram Stain - Preliminary
09/05/24 18:26 Blood/Venous Blood Culture - Preliminary
Haemophilus influenzae
09/05/24 18:26 Blood/Venous Gram Stain - Preliminary
09/06/24 04:00 Urine Urine Culture - Final
NO GROWTH
09/05/24 22:13 Nose MRSA Screen - Final
No Methicillin Resistant Staphylococcus aureus isolated.
09/05/24 17:25 Nasal Swab Influenza Types A & B (ISAAK) - Final
Negative for Influenza A & B, NAAT
Negative results must be combined with clinical observations
and patient history.
Nucleic Acid Amplification test (NAAT)performed on the
[employer] platform.
--- NOTE | 2024-09-08 15:26 | CM ---
CM following re: discharge planning.
Discussed in Rounds, reviewed pt's chart, met with pt. Per Rounds meeting, possible CRRT or HD tomorrow, ongoing discussion with the pt and his family regarding treatment plan, prognosis guarded.
D/C plan: uncertain at this time and will depend on pt's progress
CM will follow with discharge plan updates as hospitalization progresses
[2024-09-08] MEDS: ZYRTEC 5 MG PO (18:02)
[2024-09-08] MEDS: CRESTOR 10 MG PO (18:02)
[2024-09-08 18:22] LABS: APTT 145.1 Sec (23.4-35.0)
--- NOTE | 2024-09-08 19:30 | PTCARENOTE ---
rec`d pt at 1900 AAOx3. no complaints of chest pain. very weak but can get up w/1 person assist to bedside commode. at 1930, restarted the heparin gtt per protocol. SR with wide QRS on monitor. afebrile. 2L NC POX 99%. helps with exertional SOB.
lungs sound diminished. loose brown BM at change of shift in the bedside commode. tyler draining minimal yellow urine, call garcia in reach, safe environment maintained. bed alarm on.
[2024-09-09] VITALS (40 sets, daily range): BP systolic 79–123; BP diastolic 52–86; BMI 25.0
--- NOTE | 2024-09-09 | PTCARENOTE ---
pt reassessed. no changes in pt assessment. call garcia in reach
[2024-09-09 02:38] LABS: Hematocrit 36.6 % (39.0-52.0); Hemoglobin 12.1 g/dL (13.0-18.0); Mean Corp Hgb Conc. 33.1 g/dL (33.0-37.0); Mean Corpuscular Hgb 27.9 pg (27.0-31.0); Mean Corpuscular Volume 84.3 fL (80.0-94.0); Mean Platelet Volume 10.4 fL (7.4-10.4); Platelet Count 226 10^3/uL (130-400); Red Blood Cell Count 4.34 10^6/uL (4.70-6.10); Red Cell Dist. Width 15.6 % (11.5-14.5)
[2024-09-09 02:46] LABS: APTT 112.9 Sec (23.4-35.0)
[2024-09-09 03:17] LABS: ALT (SGPT) 126 U/L (0-50); AST (SGOT) 135 U/L (17-59); Alkaline Phosphatase 81 U/L (38-126); Blood Urea Nitrogen 126 mg/dl (9-20); Calcium 7.9 mg/dl (8.4-10.2); Carbon Dioxide 14 mmol/L (22-30); Chloride 100 mmol/L (98-107); Estimated Creatinine Clearance 11 ml/min; Glucose 99 mg/dl (70-99); Potassium 4.6 mmol/L (3.5-5.1); Sodium 132 mmol/L (135-145); Total Protein 5.2 g/dl (6.3-8.2); eGFR 8.75
[2024-09-09] MEDS: SODIUM BICARBONATE 50 MEQ IV (05:05)
[2024-09-09 06:17] LABS: % Basophils 0.1 % (0-2); % Eosinophils 0.1 % (0-6); % Immature Granulocytes 0.9 % (0-0.5); % Lymphocytes 70.5 % (20.5-51.1); % Monocytes 2.3 % (1.7-9.3); % Neutrophils 26.1 % (42.2-75.2); Absolute Immature Granulocytes 0.6 10^3/uL (0-0.05); Absolute Lymphocytes 47.9 10^3/uL (1.2-3.4); Absolute Monocytes 1.6 10^3/uL (0.1-0.6); Absolute Neutrophils 17.8 10^3/uL (1.4-6.5); Nucleated Red Blood Cells % 0 % (-)
[2024-09-09] MEDS: LOW STRENGTH ASPIRIN 81 MG PO (07:24)
[2024-09-09] MEDS: SODIUM BICARBONATE 650 MG PO ×3 (07:24→21:20)
[2024-09-09] MEDS: PACERONE 200 MG PO ×3 (07:24→21:21)
[2024-09-09] MEDS: PLAVIX 75 MG PO (07:24)
[2024-09-09] MEDS: AMOXIL 1000 MG PO ×2 (07:24→19:44)
[2024-09-09] MEDS: HEPARIN 25000 UNITS/250 ML IV (07:30)
--- NOTE | 2024-09-09 07:39 | PTCARENOTE ---
Received patient from rn night. patient is AAOx3, pleasant cooperative. He is on 2L nasal cannula, oxygen saturation 99%. lungs clear but diminished. He is in a sinus rhythm with PVCs, no edema noted. Patient made 650ml of urine last night,
tyler catheter for collection. Patient ordered cholesterol lowering diet. Heparin gtt infusing at 1700 units/hr into right double lumen picc. Will review orders. can make needs known.
--- NOTE | 2024-09-09 08:25 | W.PN.NEPH.PH ---
Today's Communication / Plan
-
Escalate oral bicarbonate
HD orders to be placed for tomorrow
IR consulted for temporary dialysis catheter
lasix 80mg IV
Assessment/Plan
-
IMP:
suspected cardiogenic shock
MARCE
Late presentation [place] with RHabdo and high troponin
History of coronary disease with distant stents
Acute HFrEF
Ischemic cardiomyopathy, EF 30%, new
history of HOCM, ECHO 08/15/24 nl EF
Rapid atrial fibrillation-s/p unsuccessful cardioversion attempt in ED
New left bundle
Left side infiltrate, pneumonia vs pneumonitis
UTI
Lactic acidosis
elevated LFTs from shock liver
Hypokalemia - monitor BMP
Moderate aortic stenosis, valve area 1.2 cm�
History of multiple falls over the past 2 weeks in setting of weakness from NJ
hx of CLL
Essential HTN
HLD
History of prostate cancer with robotic prostatectomy at [facility]
History of benign meningioma status post-craniotomy, resection 2018
Frontal lobe density on CT
Plan:
A/w SOb, acute CHF, late presentation of [place]
MARCE-cr increasing although nonoliguric from tyler , creatinine now up to 6 with worsening metabolic acidosis and BUN up to 126
Hemodynamically more stable
highly suspect ischemic ATN, UA possible UTI sample and many granular casts, FEna low and RHabdo
resp status is stable
BP marginal, monitor closely hopefully improve with controlling HR , patient in sinus this am
Will escalate po bicarb for met acidosis, L acid better
patient said he would do HD if he had too, therefore I will consult interventional radiology to place catheter and initiate dialysis tomorrow
HD orders provided for tomorrow
prognosis mostly depends on cardiac outcome once on HD
dose meds renally
-
-
Date of Service: September 09, 2024
CC / HPI / ROS
-
Chief Complaint:
MARCE
History of Present Illness:
MARCE Worsening cr up at 6, BUN of 126
On 2 L of oxygen
Amio on afib , remains in sinus
bicarb at 14 (metabolic acidosis worsening)
Review of Systems:
no cp, sob no change
no n/v
Oliguric via Tyler
Weights up
Labs
-
Labs:
WBC 68.0 10^3/uL (4.8-10.8) H* 09/09/24 02:21
RBC 4.34 10^6/uL (4.70-6.10) L 09/09/24 02:21
Hgb 12.1 g/dL (13.0-18.0) L 09/09/24 02:21
Hct 36.6 % (39.0-52.0) L 09/09/24 02:21
Plt Count 226 10^3/uL (130-400) 09/09/24 02:21
Sodium 132 mmol/L (135-145) L 09/09/24 02:21
Potassium 4.6 mmol/L (3.5-5.1) 09/09/24 02:21
Chloride 100 mmol/L (98-107) 09/09/24 02:21
Carbon Dioxide 14 mmol/L (22-30) L* 09/09/24 02:21
BUN 126 mg/dl (9-20) H* 09/09/24 02:21
Creatinine 6.0 mg/dL (0.7-1.3) H* 09/09/24 02:21
eGFR 8.75 09/09/24 02:21
Glucose 99 mg/dl (70-99) 09/09/24 02:21
Calcium 7.9 mg/dl (8.4-10.2) L 09/09/24 02:21
Phosphorus 5.4 mg/dl (2.5-4.5) H 09/06/24 03:58
Slx-L-Azjktinwrcj Pept > 52552 pg/ml 09/05/24 17:25
Albumin 3.0 g/dl (3.5-5.0) L 09/09/24 02:21
Physical Exam
-
Vital Signs:
Vital Signs
Temp Pulse Resp BP Pulse Ox
97.7 F 76 24 112/59 99
09/09/24 03:45 09/09/24 07:45 09/09/24 07:45 09/09/24 07:30 09/09/24 07:55
Cardiovascular:: Regular rate and rhythm
Respiratory:: Bilateral: Coarse
Lung Excursion:: Normal
Abdomen:: Nontender and Soft
Bowel Sounds:: Normal
Extremity Edema:: +1: Bilateral: (trace)
Tyler Catheter: Yes
[2024-09-09] MEDS: TOPROL XL 25 MG PO ×2 (08:38→19:44)
[2024-09-09 09:06] LABS: APTT 100.8 Sec (23.4-35.0)
--- NOTE | 2024-09-09 09:42 | W.PN.HOSP.TC ---
Today's Communication/Plan
-
HD line placement today
HD tomorrow
continue Amio, continue BB
continue IV heparin
continue oral Abx
Tx IMU
d/w Family
Assessment / Plan
Assessment / Plan
Assessment:
Hypotension, suspected cardiogenic shock
- off pressors currently
Late presentation HI with elevated CPK related to acute HI (not rhabdo) and troponin elevation from acute HI
History of coronary disease with distant stents
- current chest pain free
- limited Echo did show WMA; interventional cards reviewed; no role for cath or mechanical support. repeat Echo in within 24 hours.
- trop peaked 7.50
- medical management
- continue ASA/Plavix
- continue IV heparin - requires intensive monitoring of PTTs. Eventual transition to OAC
- continue BB with parameters
- continue statin
Acute HFrEF
Ischemic cardiomyopathy, EF 30%, new
history of HOCM, ECHO 08/15/24 nl EF
- s/p IV Lasix per Nephrology/Cardiology
- follow I/Os, weights, lytes
- BNP 89161
- follow Cardiology/Renal recs
Wide-complex tachycardia, atrial fibrillation
New left bundle
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
- s/p unsuccessful cardioversion attempt in ED
- continue BB with parameters
- continue Amiodarone (follow LFTs); now in NSR
- hold Cardizem with low EF
- continue IV heparin - requires intensive monitoring of PTTs. Eventual transition to OAC
pre-renal MARCE from Acute Cardiorenal syndrome in setting of acute CHF, Cardiogenic shock
- follow BMP
- Roach for critical I/Os
- s/p IV Lasix per Nephrology/Cardiology
- continue oral bicarbonate
- IRAD consult for HD line today (Temp line)
- Intermittent HD per Renal to start tomorrow
- Nephrology following
Left side infiltrate, pneumonia vs pneumonitis
Haemophilus influenzae bacteremia
- COVID-negative, flu negative
- Likely pulmonary source. Urine culture negative
- continue Amoxil 1g BID
- procal >200
- repeat blood cultures NGTD
Lactic acidosis
- resolving; trend
elevated LFTs from shock liver
- trend
Hypokalemia - monitor BMP
Moderate aortic stenosis, valve area 1.2 cm�
History of multiple falls over the past 2 weeks in setting of weakness from [place]
- PT/OT when suitable
hx of CLL
- Oncology following
Essential HTN
- continue BB with parameters
- hold ROSETTA
HLD
- statin
History of prostate cancer with robotic prostatectomy at [place]
History of benign meningioma status post-craniotomy, resection 2018
Frontal lobe density on CT
- follow up MRI was ordered on admission, but deferred for now given medical acuity (ordered cancelled)
DVT ppx: IV heparin
Code: DNR status per discussion with daughter Lori and patient
Total Critical Care Time 41 minutes. I was immediately available to the patient and staff. I personally examined, reviewed labs, diagnostic images/reports, interpretations, treatment plans, discussed patient care with other providers and family
or caregivers (if patient is unable to make decisions), entered orders as appropriate and documented the medical record.
Anticipated Discharge: > 48 hours
Subjective/Interval History
-
Date of Service: September 09, 2024
feels about to same, mildly SOB on 2L
no chest pain. remains in NSR.
Objective Data
-
Labs:
Laboratory Results
09/09/24 09/09/24
02:21 08:46
WBC 68.0 H*
Hgb 12.1 L
Hct 36.6 L
Plt Count 226
APTT 112.9 H 100.8 H
Sodium 132 L
Potassium 4.6
Chloride 100
Carbon Dioxide 14 L*
BUN 126 H*
Creatinine 6.0 H*
Glucose 99
Calcium 7.9 L
Total Bilirubin 1.0
AST 135 H
ALT 126 H
Alkaline Phosphatase 81
Vital Signs:
Vital Signs
Temp Pulse Resp BP Pulse Ox
97.5 F 76 24 111/62 99
09/09/24 07:10 09/09/24 08:38 09/09/24 07:45 09/09/24 08:38 09/09/24 07:55
I&O
09/08/24 09/09/24 09/10/24
06:59 06:59 06:59
Intake Total 1074.1 / 1560.8 1675.5 / 1692.5
Output Total 600 / 600 1100 / 1100
Balance 474.1 / 960.8 575.5 / 592.5
Physical Exam
-
General: No Apparent Distress
HEENT: Normocephalic and Atraumatic
Respiratory: Negative Wheezes
Cardiac: Regular Rhythm and S1/S2
GI: Soft and Nontender
Genito-urinary: No Costovertebral Tender
Musculoskeletal: Edema, Right Lower Extrem and Edema, Left Lower Extrem
Neuro: AO x 3
Psych: Calm
Data Reviewed
-
Critical Care Time (in minutes): 41
Labs: Labs Reviewed by me
[2024-09-09] MEDS: LASIX 80 MG IV (09:43)
--- NOTE | 2024-09-09 10:16 | W.PN.CARDCBS ---
Addendum entered and electronically signed by Sid Clarke DO 09/10/24 08:49:
.
Hold beta bina
Original Note:
Today's Communication / Plan
-
Okay to transfer to IMU
Continue oral amiodarone
After hemodialysis catheter placement, transition heparin to DOAC, Eliquis 2.5 mg twice daily
Impression / Plan
-
Impression / Plan
-
Cycle Specialist: Dr. Levine
Impression/Plan:
-Cardiogenic shock with multisystem organ dysfunction/failure
-Coronary artery disease with prior stenting in 2010, 2011 and 2015
*03/16/2011: 3.5/15 mm Xience V drug-eluting stent to the proximal LAD( 80% prox) and 2.5/12 mm Xience V drug-eluting stent to the proximal OM1(85% prox); No VT; abn. ST
*10/11/2011: 2.5 x 23 mm Xience stent of mid OM1(80%)- NSTEMI peak CTNI 1.9
*02/08/2016 & 02/09/2016: Orbital atherectomy and Stenting of the proximal through distal RCA with overlapping 3.5 x 16 mm, 3.5 x 38 mm, and 3.0 x 12 mm Promus stents.
-Paroxysmal atrial fibrillation Now persistent
-Acute systolic heart failure (NT proBNP >2700) with cardiogenic shock.
-New ischemic cardiomyopathy with limited bedside echocardiogram with EF 30-35% with LAD territory wall motion abnormality.
-New left bundle branch block.
-Hypotension secondary to cardiogenic shock
-Possible pneumonia; COVID-negative
-Recent falls without syncope
-CT head 09/05/24: Frontal craniotomy defect. Subjacent to the craniotomy, there is a focal area of CSF density compatible with postsurgical encephalomalacia. In the left anterior frontal region, there is extra-axial lobulated high density material,
which likely represents residual meningioma and/or pleural thickening.No evidence of acute intracranial abnormality.
-CT cervical spine 09/05/24: No evidence of acute fracture or dislocation. Moderate to severe bilateral carotid arterial calcification.
-Hypertrophic cardiomyopathy with prior moderate concentric LVH and prior LVOT obstruction not noted on most recent echocardiogram (in the setting of LAD territory infarct) 08/15/2024
-Prior hypertension with now low blood pressure
-Hyperlipidemia
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
-History of prostate cancer status post prostatectomy 2008
-CLL
-Benign meningioma status post craniotomy and resection 2018 at [place]
Plan:
Despite his initial presentation in early hospital course he looks relatively well and is continuing to improve.
Unfortunately, his MARCE has continued to progress and he needs dialysis will be initiated.
He remains in sinus rhythm. There is not evidence of overt heart failure on exam. He is on oral amiodarone and heparin.
LFTs continue to improve despite continued amiodarone therapy.
After hemodialysis catheter placed, would stop heparin and initiate Eliquis 2.5 mg twice daily
He will get a follow-up echo on Sunday looking for improvement in LV function.
Now that hemodialysis is started, cardiac catheterization Is an option as he is now dialysis dependent. Consider catheterization at the end of the week if he continues to improve.
84-year-old critically ill gentleman presents in cardiogenic shock requiring pressors with new ischemic cardiomyopathy, EF 30-35% with new regional wall motion abnormality in the LAD territory, new left bundle branch block with rapid atrial
fibrillation, acute renal failure, transaminitis with underlying known coronary artery disease and remote stenting, moderate to severe aortic stenosis, hypertrophic cardiomyopathy, and CLL.
Progress Note - Cycle Specialist
Subjective
Date of Service: September 09, 2024:
84-year-old man presenting with troponin of 7.54 and history of moderate to severe aortic stenosis and hypertrophic cardiomyopathy with evidence of drop in EF to 30-35% with LAD territory wall motion malady, MARCE on CKD, and lactic acidosis. Was in
atrial fibrillation with rapid ventricular response at the time of presentation, now in sinus rhythm on IV and oral amiodarone.
Creatinine is up to 6, hemodialysis ordered for tomorrow, IR to place catheter today
He feels a little 'foggy'
PMH: Hypertrophic cardiomyopathy, most recent echo without LVOT gradient August 2024, hypertension, hyperlipidemia, history of PAF, CAD with PCI 2010, 2011, 2015, prostate cancer with prostatectomy 2008, CLL, resection of meningioma 2017
Current medications: IV heparin, norepinephrineHas been discontinued, aspirin 81 g a day, rosuvastatin 10 mg a day, metoprolol ER 25 mg twice daily clopidogrel 75 mg a day, amiodarone 200 mg 3 times daily, bicarbonate,
Blood pressure 111/62, pulse 76, respiratory 24, afebrile, sats 99%, weight is 86 kg, up to 0.4 kg, admission weight was 92.8 kg intake and output -0.2 L, Few crackles in lung bases, head neck exam unremarkable, mild asterixis, systolic murmur, JVD
okay, not much edema, abdomen benign, overall looked improved.
White count 68, platelets 226, creatinine is 6, had been 5.3, BUN is 126, sodium is 132, AST is 135, had been 184, ALT is 126 had been 119, albumin is 3.0 ECG yesterday sinus rhythm first-degree AV block left bundle branch block with left axis
Objective
Labs:
09/09/24 02:21
09/09/24 02:21
Labs
Hgb 12.1 g/dL (13.0-18.0) L 09/09/24 02:21
Hct 36.6 % (39.0-52.0) L 09/09/24 02:21
Plt Count 226 10^3/uL (130-400) 09/09/24 02:21
PT Cancelled 09/07/24 13:14
INR Cancelled 09/07/24 13:14
APTT 100.8 Sec (23.4-35.0) H 09/09/24 08:46
Sodium 132 mmol/L (135-145) L 09/09/24 02:21
Potassium 4.6 mmol/L (3.5-5.1) 09/09/24 02:21
BUN 126 mg/dl (9-20) H* 09/09/24 02:21
Creatinine 6.0 mg/dL (0.7-1.3) H* 09/09/24 02:21
Glucose 99 mg/dl (70-99) 09/09/24 02:21
Troponins
09/06/24
10:18
Troponin I 6.990 H*
Vital Signs and I&O:
Vital Signs
Temp Pulse Resp BP Pulse Ox
36.4 C 76 24 111/62 99
09/09/24 07:10 09/09/24 08:38 09/09/24 07:45 09/09/24 08:38 09/09/24 07:55
Vital Signs
Temp Pulse Resp BP Pulse Ox
36.4 C 76 24 111/62 99
09/09/24 07:10 09/09/24 08:38 09/09/24 07:45 09/09/24 08:38 09/09/24 07:55
Intake & Output
09/07/24 09/08/24 09/09/24 09/10/24
07:59 07:59 07:59 07:59
Intake Total 919 / 934 1545.8 / 1582.5 1205.8 / 1222.8 34 / 34
Output Total 45 / 45 600 / 600 1100 / 1100 250 / 250
Balance 874 / 889 945.8 / 982.5 105.8 / 122.8 -216 / -216
Physical Exam
Physical Exam
See above
--- NOTE | 2024-09-09 12:00 | PTCARENOTE ---
No change in patient's assessment. Patient due to receive HD dialysis tomorrow. awaiting IR for temp dialysis catheter placement.
--- NOTE | 2024-09-09 12:58 | W.PN.INTV ---
Today's Communication / Plan
Recommendations
To start hemodialysis
Continue cardiac management
Complete 7 days of amoxicillin
Wean off oxygen as able
Sign off
Transferred to intermediate care unit
Assessment
-
84-year-old male with history of coronary disease distant stents, hypertrophic cardiomyopathy with recent echo August 2024 with moderate concentric LVH, now with depressed EF of 30%, hypotension, suspected cardiogenic shock. Cannot rule out
pneumonia. Patient admitted to ICU for further management
Hypotension, suspected cardiogenic shock
Ischemic cardiomyopathy, EF 30%, new
History of HOCM, ECHO 08/15/24 nl EF
History of coronary disease with distant stents
Moderate aortic stenosis, valve area 1.2 cm�
PA pressure 36
Wide-complex tachycardia, atrial fibrillation
New left bundle
Attempted DC cardioversion in ED, unsuccessful
History of PAF not on anticoagulation
Acute renal insufficiency, creatinine 2.8
Baseline normal
Elevated CK, elevated troponin
Elevated lactate
Questionable left-sided infiltrate, pneumonitis
History of multiple falls over the past 2 weeks
Conditions present prior to admission
CLL
Hypertension/hyperlipidemia
History of prostate cancer with robotic prostatectomy at [place]
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
history of benign meningioma status post-craniotomy, resection 2018
Plan/recommendations
From the critical care perspective clinically improved-unfortunately renal function continues to worsen per.
-
Continue management primarily per cardiology.
Remains on heparin drip, follow PTT
New ischemic cardiomyopathy suspected with new left bundle branch
May require eventual coronary catheterization prior to discharge. This is an ongoing discussion
Presently without chest pain
Continue antiplatelets per
Oral amiodarone will continue.
Eventual repeat echocardiogram.
-
Off vasopressors. For longer than 24 hours per
Chest x-ray with questionable left-sided pneumonia although patient does not describe symptoms classic for pneumonia
CLL noted
Blood culture positive with haemophilus influenza
Transitioned to amoxicillin 09/08/2024. Complete total 7 days.
History of CLL, likely chronically immunosuppressed. Cannot rule out left-sided pneumonia
COVID-negative, flu negative
Chest x-ray 09/08
Oxygenation stable, 96% on 3 L wean as able, home oxygen assessment closer to discharge
-
Worsening renal failure/metabolic acidosis.
Patient had an event about 10 to 14 days ago, since then, likely has been hypotensive. Patient did not seek medical care.
Hold RSOETTA inhibitor
Nephrology following. To start hemodialysis.
Continue to follow daily BMP
Reviewed discussion with family and hospitalist service.
Patient is DNR
Reviewed with critical care nursing, respiratory care, cardiology
-
No additional critical care recommendations.
Transfer to intermediate care unit
Critical care team will sign off
Call pulmonary if any respiratory issues arise
Subjective Dataa
Subjective Data
Date of Service:
Date of Service: September 09, 2024
Chief Complaint: Project Management Intern Follow Up (Cardiogenic shock)
Subjective:
Patient offers no new complaints
Denies nausea or vomiting
Denies shortness of breath at rest
Review of Systems
Cardiopulmonary: Dyspnea (none at rest)
GI: Abdominal Pain (n) and Nausea
Neuro: Headache (n)
Objective Data
Data Reviewed
Vital Signs / I&O / Oxygen:
Vital Signs
Temp Pulse Resp BP Pulse Ox
98.5 F 77 25 106/58 97
09/09/24 11:30 09/09/24 12:25 09/09/24 12:25 09/09/24 12:25 09/09/24 12:25
Intake and Output
09/08/24 09/09/24 09/10/24
06:59 06:59 06:59
Intake Total 1074.1 / 1560.8 1675.5 / 1692.5 102 / 102
Output Total 600 / 600 1100 / 1100 400 / 400
Balance 474.1 / 960.8 575.5 / 592.5 -298 / -298
SaO2 97
Nasal Cannula flow liters per 2
minute
Physical Exam
General: Comfortable
HEENT: Normocephalic and Anicteric
Cardiovascular: S1-S2, Irregular Rhythm, Murmur (n) and Cool Extremities
Respiratory: Wheeze (n), Crackles (n), Rhonchi (n) and Non-Labored Respirations
GI: Soft, Non Distended and Tender (Mild right upper quadrant tenderness, no rebound or guarding)
Neurology: Awake, Alert and No Motor Deficits (Able to sit up without assistance)
Skin: Cyanosis (n), Jaundice (n) and Rash (n)
Labs/Micro/Reports
Lab Data
09/09/24 02:21
09/09/24 02:21
Laboratory Results
09/08/24 09/09/24 09/09/24
18:00 02:21 08:46
APTT 145.1 H 112.9 H 100.8 H
Microbiology
09/08/24 02:28 Blood/Venous Blood Culture - Preliminary
No Growth in 24 hours- Final report to follow
09/08/24 02:28 Blood/Venous Blood Culture - Preliminary
No Growth in 24 hours- Final report to follow
09/05/24 18:26 Blood/Venous Blood Culture - Preliminary
Haemophilus influenzae
09/05/24 18:26 Blood/Venous Gram Stain - Preliminary
09/05/24 18:26 Blood/Venous Blood Culture - Preliminary
Haemophilus influenzae
09/05/24 18:26 Blood/Venous Gram Stain - Preliminary
09/06/24 04:00 Urine Urine Culture - Final
NO GROWTH
09/05/24 22:13 Nose MRSA Screen - Final
No Methicillin Resistant Staphylococcus aureus isolated.
[2024-09-09] MEDS: TYLENOL 650 MG PO (13:06)
--- NOTE | 2024-09-09 13:30 | PTCARENOTE ---
Patient sat up while talking to Dr. Villar. then complained of sudden onset of hip pain, 9:10. Notified Dr. Angela, hip xray ordered.
--- NOTE | 2024-09-09 14:38 | CM ---
CM following re: discharge planning.
Discussed in Rounds, reviewed pt's chart, met with pt. Per Rounds meeting, pt clinically improved, renal function worsening, HD tomorrow, ongoing discussion with the pt and his family regarding treatment plan, prognosis guarded.
D/C plan: uncertain at this time and will depend on pt's progress
CM will follow with discharge plan updates as hospitalization progresses
[2024-09-09 15:21] LABS: APTT 131.4 Sec (23.4-35.0)
--- NOTE | 2024-09-09 15:30 | PTCARENOTE ---
Heparin gtt on hold per ptt assessment. will restart in 1 hour at 1500 units/hr
[2024-09-09 16:52] LABS: Hepatitis B Surface Antigen Negative (Negative)
[2024-09-09 17:10] LABS: Hepatitis B Core Ab, Total Negative (Negative)
[2024-09-09] MEDS: ZYRTEC 5 MG PO (17:23)
[2024-09-09] MEDS: CRESTOR 10 MG PO (17:23)
[2024-09-09 18:10] LABS: Hepatitis B Surface Antibody Negative; Hepatitis C Antibody Negative (Negative)
--- NOTE | 2024-09-09 20:57 | PTCARENOTE ---
Received pt from previous RN. Pt is AAOx3. NSR w/ 1st degree, BBB, PVCs on the monitor. On RA O2 sat 97%, lungs diminished/coarse. Roach in place. Heparin gtt @ 1500 units/hr. Pt is laying in bed with call garcia in reach.
[2024-09-09 22:50] LABS: APTT 71.5 Sec (23.4-35.0)
[2024-09-10] VITALS (44 sets, daily range): BP systolic 38–132; BP diastolic 19–119; BMI 24.2
--- NOTE | 2024-09-10 00:05 | PTCARENOTE ---
Pt transferred to IMU.
--- NOTE | 2024-09-10 00:10 | PTCARENOTE ---
Report received from MAGGIE Flores. Patient transferred into room 3346 via bed. IV Heparin infusing @ 16 mL/hr. All belongings brought with patient. Pt denies any pain at this time. NSR w/ BBB/1st degree/ST elevation. Roach in place. Oriented to room
and use of call garcia. Call garcia and tray table within reach. Bed alarm on and set.
[2024-09-10] MEDS: HEPARIN 25000 UNITS/250 ML IV (01:29)
[2024-09-10 05:42] LABS: APTT 130.2 Sec (23.4-35.0)
[2024-09-10 05:58] LABS: Hematocrit 30.3 % (39.0-52.0); Hemoglobin 9.9 g/dL (13.0-18.0); Mean Corp Hgb Conc. 32.7 g/dL (33.0-37.0); Mean Corpuscular Hgb 27.8 pg (27.0-31.0); Mean Corpuscular Volume 85.1 fL (80.0-94.0); Mean Platelet Volume 10.7 fL (7.4-10.4); Platelet Count 321 10^3/uL (130-400); Red Blood Cell Count 3.56 10^6/uL (4.70-6.10); Red Cell Dist. Width 15.2 % (11.5-14.5); White Blood Cell Count 96.7 10^3/uL (4.8-10.8)
[2024-09-10] MEDS: TYLENOL 650 MG PO (06:09)
--- NOTE | 2024-09-10 06:14 | PTCARENOTE ---
Sukhi did not sleep last night. This morning he became slightly restless and frustrated on overall situation. He stated he has 'pain everywhere'. PRN Tylenol provided. Repositioning with pillows. Pt appears to be very fatigued. Tachypnea
intermittently. Extremities cold, difficult to obtain an accurate Sp02 measurement. Attempted the ear, toe and finger for Sp02 reading.
[2024-09-10 06:55] LABS: % Basophils 0.1 % (0-2); % Eosinophils 0.2 % (0-6); % Immature Granulocytes 1.5 % (0-0.5); % Lymphocytes 73.4 % (20.5-51.1); % Neutrophils 21.8 % (42.2-75.2); Absolute Basophils 0.1 10^3/uL (0-0.2); Absolute Eosinophils 0.2 10^3/uL (0-0.7); Absolute Immature Granulocytes 1.5 10^3/uL (0-0.05); Absolute Monocytes 2.9 10^3/uL (0.1-0.6); Absolute Neutrophils 21.1 10^3/uL (1.4-6.5); Nucleated Red Blood Cells % 0 % (-)
[2024-09-10 07:01] LABS: ALT (SGPT) 93 U/L (0-50); AST (SGOT) 94 U/L (17-59); Albumin 2.8 g/dl (3.5-5.0); Alkaline Phosphatase 86 U/L (38-126); Blood Urea Nitrogen 138 mg/dl (9-20); Calcium 8.2 mg/dl (8.4-10.2); Carbon Dioxide 15 mmol/L (22-30); Chloride 100 mmol/L (98-107); Estimated Creatinine Clearance 10 ml/min; Glucose 143 mg/dl (70-99); Potassium 4.8 mmol/L (3.5-5.1); Sodium 132 mmol/L (135-145); Total Bilirubin 1.2 mg/dl (0.2-1.3); Total Protein 4.9 g/dl (6.3-8.2); eGFR 7.81
[2024-09-10 07:29] LABS: Glucose - Point of Care 179 mg/dl (70-99)
[2024-09-10] MEDS: LEVOPHED 250 IV (08:24)
--- NOTE | 2024-09-10 08:24 | W.PN.CARDCBS ---
Today's Communication / Plan
-
Plan is for HD Sep 10 with catheter placement.
Remains in sinus rhythm with PACs
Check EKG
Remains on IV Heparin
Remains on oral Amiodarone.
Hypotensive AM Sep 10 and IV Levophed started by primary service.
Pt also received Midodrine 5 mg PO X 1.
Would continue with Midodrine 5 mg BID.
Remains euvolemic
LFTs continue to improve despite continued amiodarone therapy.
Check repeat echo reeval EF, pending.
Once receiving HD, may be able to consider eventual cardiac cath prior to d/c, if he improves.
H/H continues to come down, 9.9 on Sep 10.
Last BC so far negative.
Discussed with nursing.
Discussed primary service
Impression / Plan
-
.
Barge Captain: Dr. Levine
Impression/Plan:
-Cardiogenic shock with multisystem organ dysfunction/failure
-Coronary artery disease with prior stenting in 2010, 2011 and 2015
*03/16/2011: 3.5/15 mm Xience V drug-eluting stent to the proximal LAD( 80% prox) and 2.5/12 mm Xience V drug-eluting stent to the proximal OM1(85% prox); No OH; abn. ST
*10/11/2011: 2.5 x 23 mm Xience stent of mid OM1(80%)- NSTEMI peak CTNI 1.9
*02/08/2016 & 02/09/2016: Orbital atherectomy and Stenting of the proximal through distal RCA with overlapping 3.5 x 16 mm, 3.5 x 38 mm, and 3.0 x 12 mm Promus stents.
-Paroxysmal atrial fibrillation Now persistent
-Acute systolic heart failure (NT proBNP >2700) with cardiogenic shock.
-New ischemic cardiomyopathy with limited bedside echocardiogram with EF 30-35% with LAD territory wall motion abnormality.
-New left bundle branch block.
-Hypotension secondary to cardiogenic shock
-Possible pneumonia; COVID-negative
-Recent falls without syncope
-CT head 09/05/24: Frontal craniotomy defect. Subjacent to the craniotomy, there is a focal area of CSF density compatible with postsurgical encephalomalacia. In the left anterior frontal region, there is extra-axial lobulated high density material,
which likely represents residual meningioma and/or pleural thickening.No evidence of acute intracranial abnormality.
-CT cervical spine 09/05/24: No evidence of acute fracture or dislocation. Moderate to severe bilateral carotid arterial calcification.
-Hypertrophic cardiomyopathy with prior moderate concentric LVH and prior LVOT obstruction not noted on most recent echocardiogram (in the setting of LAD territory infarct) 08/15/2024
-Prior hypertension with now low blood pressure
-Hyperlipidemia
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
-History of prostate cancer status post prostatectomy 2008
-CLL
-Benign meningioma status post craniotomy and resection 2018 at [facility]
Plan:
Plan is for HD Sep 10 with catheter placement.
Remains in sinus rhythm with PACs LBBB
Check EKG: sinus with LBBB
Remains on IV Heparin
Remains on oral Amiodarone.
Hypotensive AM Sep 10 and IV Levophed started by primary service.
Pt also received Midodrine 5 mg PO X 1.
Would continue with Midodrine 5 mg BID.
Remains euvolemic
LFTs continue to improve despite continued amiodarone therapy.
Check repeat echo reeval EF, pending.
Once receiving HD, may be able to consider eventual cardiac cath prior to d/c, if he improves.
H/H continues to come down, 9.9 on Sep 10.
Last BC so far negative
Discussed with nursing.
84-year-old critically ill gentleman presents in cardiogenic shock requiring pressors with new ischemic cardiomyopathy, EF 30-35% with new regional wall motion abnormality in the LAD territory, new left bundle branch block with rapid atrial
fibrillation, acute renal failure, transaminitis with underlying known coronary artery disease and remote stenting, moderate to severe aortic stenosis, hypertrophic cardiomyopathy, and CLL.
Progress Note - Barge Captain
Subjective
Date of Service: September 10, 2024
Pt seen and examined. Weakness and some hypotension with getting up to go to bathroom.
Objective
Labs:
09/10/24 05:18
09/10/24 05:18
Labs
Hgb 9.9 g/dL (13.0-18.0) L 09/10/24 05:18
Hct 30.3 % (39.0-52.0) L 09/10/24 05:18
Plt Count 321 10^3/uL (130-400) D 09/10/24 05:18
PT Cancelled 09/07/24 13:14
INR Cancelled 09/07/24 13:14
APTT 130.2 Sec (23.4-35.0) H 09/10/24 05:18
Sodium 132 mmol/L (135-145) L 09/10/24 05:18
Potassium 4.8 mmol/L (3.5-5.1) 09/10/24 05:18
BUN 138 mg/dl (9-20) H* 09/10/24 05:18
Creatinine 6.6 mg/dL (0.7-1.3) H* 09/10/24 05:18
Glucose 143 mg/dl (70-99) H 09/10/24 05:18
Vital Signs and I&O:
Vital Signs
Temp Pulse Resp BP Pulse Ox
98.1 F 86 23 97/52 96
09/10/24 02:55 09/10/24 06:00 09/10/24 06:00 09/10/24 06:00 09/10/24 05:00
Vital Signs
Temp Pulse Resp BP Pulse Ox
98.1 F 86 23 97/52 96
09/10/24 02:55 09/10/24 06:00 09/10/24 06:00 09/10/24 06:00 09/10/24 05:00
Intake & Output
09/08/24 09/09/24 09/10/24 09/11/24
06:59 06:59 06:59 06:59
Intake Total 1074.1 / 1560.8 1675.5 / 1692.5 1938 / 1938
Output Total 600 / 600 1100 / 1100 1145 / 1145
Balance 474.1 / 960.8 575.5 / 592.5 793 / 793
Physical Exam
Physical Exam
General: Fatigued, alert
Neck: Negative JVD
Heart: Regular, Negative S3 positive S1/S2, Negative S4, No murmur
Lungs: CTA b/l, negative wheezes/rales/rhonchi
Abd: Positive BS, NT/ND, neg rebound/rigidity/guarding
Ext: Negative cyanosis/clubbing/edema
Neuro: nonfocal
[2024-09-10] MEDS: ProAmatine 5 MG PO (08:29)
[2024-09-10] MEDS: TOPROL XL PO (08:46)
[2024-09-10] MEDS: PACERONE 200 MG PO (08:49)
[2024-09-10] MEDS: PLAVIX 75 MG PO (08:49)
[2024-09-10] MEDS: SODIUM BICARBONATE 650 MG PO (08:50)
[2024-09-10] MEDS: LOW STRENGTH ASPIRIN 81 MG PO (08:50)
[2024-09-10] MEDS: AMOXIL PO (09:38)
--- NOTE | 2024-09-10 11:09 | W.PN.NEPH.PH ---
Today's Communication / Plan
-
HD likely, attempt HD today
Assessment/Plan
-
IMP:
suspected cardiogenic shock
MARCE
Late presentation GA with RHabdo and high troponin
History of coronary disease with distant stents
Acute HFrEF
Ischemic cardiomyopathy, EF 30%, new
history of HOCM, ECHO 08/15/24 nl EF
Rapid atrial fibrillation-s/p unsuccessful cardioversion attempt in ED
New left bundle
Left side infiltrate, pneumonia vs pneumonitis
UTI
Lactic acidosis
elevated LFTs from shock liver
Hypokalemia - monitor BMP
Moderate aortic stenosis, valve area 1.2 cm�
History of multiple falls over the past 2 weeks in setting of weakness from GA
hx of CLL
Essential HTN
HLD
History of prostate cancer with robotic prostatectomy at [facility]
History of benign meningioma status post-craniotomy, resection 2018
Frontal lobe density on CT
Plan:
A/w SOb, acute CHF, late presentation of GA
MARCE-cr increasing although nonoliguric from [place] , creatinine now up to 6.6 with persistent metabolic acidosis and BUN up to 138
Hemodynamically unstable, on Levo this am, titrate to keep MAP>65, midodrine added per cards
highly suspect ischemic ATN, UA possible UTI sample and many granular casts, FEna low and RHabdo
resp status is stable
cont high dose po bicarb until starts HD
Pt agrees to HD however with poor cardiac status and hypotension likely difficult to tolerate, we dont know until he is on HD
prognosis mostly depends on cardiac outcome
dose meds renally
HIgh risk encounter
-
-
Date of Service: September 10, 2024
CC / HPI / ROS
-
Chief Complaint:
MARCE
History of Present Illness:
MARCE Worsening cr up at 6.6, BUN of 138
On 2 L of oxygen
Amio on afib , remains in sinus
bicarb at 15 (metabolic acidosis worsening)
Review of Systems:
no cp, sob no change
no n/v
non Oliguric via [place]
Weights is down
Labs
-
Labs:
WBC 96.7 10^3/uL (4.8-10.8) H* 09/10/24 05:18
RBC 3.56 10^6/uL (4.70-6.10) L 09/10/24 05:18
Hgb 9.9 g/dL (13.0-18.0) L 09/10/24 05:18
Hct 30.3 % (39.0-52.0) L 09/10/24 05:18
Plt Count 321 10^3/uL (130-400) D 09/10/24 05:18
Sodium 132 mmol/L (135-145) L 09/10/24 05:18
Potassium 4.8 mmol/L (3.5-5.1) 09/10/24 05:18
Chloride 100 mmol/L (98-107) 09/10/24 05:18
Carbon Dioxide 15 mmol/L (22-30) L 09/10/24 05:18
BUN 138 mg/dl (9-20) H* 09/10/24 05:18
Creatinine 6.6 mg/dL (0.7-1.3) H* 09/10/24 05:18
eGFR 7.81 09/10/24 05:18
Glucose 143 mg/dl (70-99) H 09/10/24 05:18
Calcium 8.2 mg/dl (8.4-10.2) L 09/10/24 05:18
Phosphorus 5.4 mg/dl (2.5-4.5) H 09/06/24 03:58
Bbp-K-Xqwnumqxdpl Pept > 70464 pg/ml 09/05/24 17:25
Albumin 2.8 g/dl (3.5-5.0) L 09/10/24 05:18
Physical Exam
-
Vital Signs:
Vital Signs
Temp Pulse Resp BP Pulse Ox
98.1 F 72 21 80/42 100
09/10/24 02:55 09/10/24 08:49 09/10/24 08:31 09/10/24 08:49 09/10/24 08:15
Cardiovascular:: Regular rate and rhythm
Respiratory:: Bilateral: CTA (decreased)
Abdomen:: Nontender and Soft
Extremity Edema:: None: Bilateral:
Tyler Catheter: Yes
--- NOTE | 2024-09-10 12:39 | W.PN.HOSP.TC ---
Addendum entered and electronically signed by Fritz Kingsley MD 09/10/24 14:22:
Time of discharge 49 minutes
Original Note:
Today's Communication/Plan
-
Monitor vital signs and see plan
Comfort measures
Start morphine
Prognosis guarded
Assessment / Plan
Assessment / Plan
Assessment:
General: Respiratory distress, tachypnea
HEENT: Normocephalic and Atraumatic
Respiratory: Negative Wheezes, tachypnea
Cardiac: Regular Rhythm and S1/S2
GI: Soft and Nontender
Genito-urinary: No Costovertebral Tender
Musculoskeletal:: Lower extremity cold
Neuro: AO x 1
Psych: Calm
Hypotension, suspected cardiogenic shock
Late presentation VT with elevated CPK related to acute VT (not rhabdo) and troponin elevation from acute VT
History of coronary disease with distant stents
- current chest pain free
- limited Echo did show WMA; interventional cards reviewed; no role for cath or mechanical support. repeat Echo 09/10 similar
- trop peaked 7.50
- medical management
- on ASA/Plavix
- continue IV heparin - requires intensive monitoring of PTTs. Eventual transition to OAC
- continue BB with parameters
- continue statin
Suspect cardiogenic shock
Suspect multiorgan failure
Discussed with cardiology, was started on Levophed this morning however patient blood pressure continued to be very labile
Was initially planned on HD catheter today however was too unstable for IR to put catheter.
Later in the afternoon 09/10/2024 patient started having agonal breathing. Discussed with Brittni Becker (patient's oldest daughter) who was at bedside. She is on patient is declining clinical status and chose to stop all medical treatment and wanted
patient to be comfortable. Start morphine. Comfort measures
Acute HFrEF
Ischemic cardiomyopathy, EF 30%, new
history of HOCM, ECHO 08/15/24 nl EF
- s/p IV Lasix per Nephrology/Cardiology
- follow I/Os, weights, lytes
- BNP 52907
- follow Cardiology/Renal recs
Wide-complex tachycardia, atrial fibrillation
New left bundle
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
- s/p unsuccessful cardioversion attempt in ED
- continue BB with parameters
- continue Amiodarone (follow LFTs); now in NSR
- hold Cardizem with low EF
- continue IV heparin - requires intensive monitoring of PTTs. Eventual transition to OAC
pre-renal MARCE from Acute Cardiorenal syndrome in setting of acute CHF, Cardiogenic shock
- follow BMP
- Roach for critical I/Os
- s/p IV Lasix per Nephrology/Cardiology
- continue oral bicarbonate
- IRAD consult for HD line today (Temp line)
- Intermittent HD per Renal to start tomorrow
- Nephrology following
Left side infiltrate, pneumonia vs pneumonitis
Haemophilus influenzae bacteremia
- COVID-negative, flu negative
- Likely pulmonary source. Urine culture negative
- continue Amoxil 1g BID
- procal >200
- repeat blood cultures NGTD
Lactic acidosis
- resolving; trend
elevated LFTs from shock liver
- trend
Hypokalemia - monitor BMP
Moderate aortic stenosis, valve area 1.2 cm�
History of multiple falls over the past 2 weeks in setting of weakness from [place]
- PT/OT when suitable
hx of CLL
- Oncology following
Essential HTN
- continue BB with parameters
- hold ROSETTA
HLD
- statin
History of prostate cancer with robotic prostatectomy at [facility]
History of benign meningioma status post-craniotomy, resection 2018
Frontal lobe density on CT
- follow up MRI was ordered on admission, but deferred for now given medical acuity (ordered cancelled)
DVT ppx: IV heparin
Code: DNR status per discussion with daughter Lori and patient
Total Critical Care Time 48 minutes. I was immediately available to the patient and staff. I personally examined, reviewed labs, diagnostic images/reports, interpretations, treatment plans, discussed patient care with other providers and family
or caregivers (if patient is unable to make decisions), entered orders as appropriate and documented the medical record.
Anticipated Discharge: Within 24 hours
Subjective/Interval History
-
Date of Service: September 10, 2024
agonal breathing
Objective Data
-
Labs:
Laboratory Results
09/10/24 09/10/24
05:18 12:00
WBC 96.7 H*
Hgb 9.9 L
Hct 30.3 L
Plt Count 321 D
APTT 130.2 H Pending
Sodium 132 L
Potassium 4.8
Chloride 100
Carbon Dioxide 15 L
BUN 138 H*
Creatinine 6.6 H*
Glucose 143 H
Calcium 8.2 L
Total Bilirubin 1.2
AST 94 H
ALT 93 H
Alkaline Phosphatase 86
Vital Signs:
Vital Signs
Temp Pulse Resp BP Pulse Ox
98.1 F 81 35 87/56 99
09/10/24 11:10 09/10/24 12:31 09/10/24 12:31 09/10/24 12:31 09/10/24 12:31
I&O
09/09/24 09/10/24 09/11/24
06:59 06:59 06:59
Intake Total 1675.5 / 1692.5 1938 / 1938
Output Total 1100 / 1100 1145 / 1145
Balance 575.5 / 592.5 793 / 793
[2024-09-10 12:53] LABS: APTT 161.4 Sec (23.4-35.0)
--- NOTE | 2024-09-10 13:19 | W.PN.UPDATE ---
Addendum entered and electronically signed by Sid Clarke DO 09/10/24 14:22:
I saw and examined the patient.
[employer]'s note was reviewed and I agree with the note.
Comment:
Additionally:
Echo also reviewed and EF was unchanged from recent echo.
Original Note:
Update Note
Progress Note Update
CTSP as with worsening tachypnea, diaphoresis, hypotension. Patient pale, clammy, ill appearing. Uptitrating levophed. Discussed initiation of dobutamine for cardiogenic shock with hospitalist. Called nephrology and confirmed that he is too unstable
at present for initiation of HD and given limited urine output (~100cc this morning), would likely not respond to lasix. He then was noted to have worsening hypotension and bradycardia with agonal breathing. Daughter at bedside updated on rapidly
declining status and confirmed DNR. will continue to support patient as able. d/w hospitalist, nursing.
CCT 34 minutes
--- NOTE | 2024-09-10 13:40 | CM ---
Addendum entered by Lyubov Mcnally RN 09/10/24 13:45:
Comfort care ordered per MD.
Original Note:
Notified by nurse that patient had and was at the bedside.
Spoke with Loreta Petersenlain who will assist family with request for mop worker/last rites.
CM available to assist family as needed.
Patient .
--- NOTE | 2024-09-10 13:54 | PTCARENOTE ---
At the start of the shift patient was restless in bed, diaphoretic, hypotensive. Notified Dr. Kingsley and cardiology immediately. Patient was started on Levophed at 2mcg. Blood pressure improved and patient was able to take a nap. Daughter arrived and
patient became diaphoretic again, hypotensive and restless. Pulse ox difficult to obtain peripherally, respiratory notified and patient placed on oxygen mask. Levophed was titrated to the max at 8mcg. Patient became more restless and Dr. Kingsley and
cardiology were contacted for reevaluation. Patient had an acute change when physicians and daughter were in the room. Heart rate dropped into the 40s and respiratory rate became agonal. Discussed care goals with daughter Brittni in the room. SHe
verbalized wanting comfort at this time. Discussed with medical team and patient at 13:33 with daughter at bedside.
--- NOTE | 2024-09-10 14:19 | W.PN.DEATH ---
Pronouncement of
-
Called to see patient to pronounce.
No spontaneous heart tones or respirations noted.
Patient not responsive to verbal stimuli.
Patient is pronounced .
Time of : 13:33
Date of : 09/10/24
Cause of : Cardiogenic shock
Acute renal failure
CLL
Lactic acidosis
Family Notified: Yes
--- NOTE | 2024-09-10 14:21 | W.DCSUMMARY ---
Discharge Summary
Discharge Data
Date of Admission: 09/05/24
Date of Discharge: 09/10/24
-
Pending Results: No
Hospital Course
Discharge diagnosis:
Cardiogenic shock
Acute congestive heart failure with reduced ejection fraction
Ischemic cardiomyopathy
Haemophilus influenzae bacteremia
New left bundle branch block
Acute renal failure
Suspected pneumonia
Lactic acidosis
Shock liver
History of CLL
Hospital course:
84-year-old male with past medical history of CLL, hypertrophic cardiomyopathy, moderate to severe aortic stenosis, prior CAD with stents, paroxysmal atrial fibrillation came to the hospital with shortness of breath known to have cardiogenic shock.
It was determined that patient likely had a subacute myocardial infarction with severely depressed cardiomyopathy. On echocardiogram his EF was around 30%. On this hospitalization patient also had atrial fibrillation along with new left bundle
branch block for which she was seen by cardiology. He was initially started on IV Lasix for his heart failure however his creatinine continued to get worse. Patient was seen by nephrology throughout hospitalization. Since his kidney function was
worsening, nephrology planned for possible hemodialysis. There was also suspicion of patient having possible pneumonia/pneumonitis which was treated with antibiotics. His blood cultures were also positive for Haemophilus influenzae on which she
was being treated with antibiotics. Over time patient started develop multiorgan failure and was getting worse. Family and patient opted for DO NOT RESUSCITATE however initially wanted full medical treatment. Initial plan was for patient to
undergo hemodialysis however prior to that he started to get worse over time and given his declining clinical status, family decided to pursue comfort measures. Patient later on 09/10/2024 at 1:33 PM
Discharge Plan
-
Patient Disposition:
Date/Time
Date/Time: 09/10/24 13:33
Discharge Date and Time
Print Language: KOREAN
--- NOTE | 2024-09-10 14:55 | CHAP ---
Emotional and spiritual support provided for MR. George and family at bedside. Prayer blanket given, prayers of commendation prayed. [employer] unable to come before he , but 'prayers in the absense of the environmental attorney' satisfied family.
--- NOTE | 2024-09-10 17:01 | PTCARENOTE ---
Post mortem care provided. No family in room at this time. Roach catheter and PICC line removed.
== END 2024-09-10 13:33 | disposition expired ==
LOC: IMU 20:14
PROVIDERS: Internal Medicine; Internal Medicine Cardiovascular Disease; Nurse Practitioner Primary Care; Physician Assistant; ADMITTING PHYSICIAN Internal Medicine; ATTENDING PHYSICIAN Internal Medicine; CONSULT PHYSICIAN Internal Medicine; CONSULT PHYSICIAN Internal Medicine Hematology & Oncology; EMERGENCY PHYSICIAN Emergency Medicine; FAMILY PHYSICIAN Family Medicine; OTHER PHYSICIAN Internal Medicine Critical Care Medicine
PROC: 5A2204Z Restoration of Cardiac Rhythm, Single (ICD-10-PCS; 2024-09-05)
DX: I21.9 Acute myocardial infarction, unspecified (principal); I50.21 Acute systolic (congestive) heart failure; J18.9 Pneumonia, unspecified organism; K72.00 Acute and subacute hepatic failure without coma; N17.9 Acute kidney failure, unspecified; E87.20 Acidosis, unspecified; C91.10 Chronic lymphocytic leukemia of B-cell type not having achieved remission; N39.0 Urinary tract infection, site not specified; I42.1 Obstructive hypertrophic cardiomyopathy; R57.0 Cardiogenic shock; I11.0 Hypertensive heart disease with heart failure; I25.5 Ischemic cardiomyopathy; B96.3 Hemophilus influenzae [H. influenzae] as the cause of diseases classified elsewhere; I44.7 Left bundle-branch block, unspecified; I48.0 Paroxysmal atrial fibrillation; I25.10 Atherosclerotic heart disease of native coronary artery without angina pectoris; Z95.5 Presence of coronary angioplasty implant and graft; I08.3 Combined rheumatic disorders of mitral, aortic and tricuspid valves; Z66 Do not resuscitate; Z51.5 Encounter for palliative care; Z87.891 Personal history of nicotine dependence; Z79.82 Long term (current) use of aspirin; Z79.899 Other long term (current) drug therapy; I45.6 Pre-excitation syndrome; Z82.0 Family history of epilepsy and other diseases of the nervous system; K21.9 Gastro-esophageal reflux disease without esophagitis; Z85.46 Personal history of malignant neoplasm of prostate; Z86.011 Personal history of benign neoplasm of the brain; Z88.0 Allergy status to penicillin; E78.00 Pure hypercholesterolemia, unspecified; Z91.81 History of falling; G93.89 Other specified disorders of brain; E87.6 Hypokalemia; W19.XXXA Unspecified fall, initial encounter; Z11.52 Encounter for screening for COVID-19
CPT/HCPCS: 93308; 51702; 70450; 71045; 72125; 73502; 80048; 80053; 80061; 81003; 81015; 82550; 82553; 82570; 82805; 82962; 83605; 83615; 83735; 83880; 84100; 84145; 84300; 84484; 84550; 85025; 85610; 85730; 86704; 86706; 86803; 86850; 86900; 86901; 87040; 87070; 87077; 87086; 87149; 87185; 87205; 87340; 87502; 87811; 92526; 92610; 92960; 93005; 93306; 93321; 93325; 94640; 96365; 96367; 96375; 99152; 99291; G0257